=== PATIENT | male | born 1975 | race Caucasian/White ===

== ENCOUNTER 2020-06-11 12:21 | Emergency (ER) | payer BC ==
[2020-06-11 12:25] VITALS: RESP 16
[2020-06-11] MEDS ORDERED: SODIUM CHLORIDE 0.9% 1,000 ML IV ONE (12:44)
[2020-06-11] MEDS ORDERED: DEXAMETHASONE SOD PHOSPHATE 10 MG/ML 1 ML VIAL IV STA (12:44)
[2020-06-11] MEDS ORDERED: KETOROLAC 15 MG/ML 1 ML VIAL IVP STA (12:44)
--- NOTE | 2020-06-11 12:52 | ED ---
ENT HPI - General Source: patient, RN notes reviewed, old records reviewed Mode of arrival: ambulatory Limitations: no limitations <Johanne Wahl - Last Filed: 06/11/20 13:59> <Yulia Shay - Last Filed: 06/11/20 14:47> - General Chief complaint: ENT Stated complaint: trouble swallowing Time Seen by Provider: 06/11/20 12:27 - History of Present Illness Initial comments: Patient is a 45-year-old male who presents emergency department today with 4 days of sore throat and dysphasia. Patient states that he was seen at urgent care and prescribed antibiotics of azithromycin and steroids and has been on them for 4 days. Patient states that he had a negative strep test. Patient states his symptoms seem be worsening. He denies fever. (Johanne Wahl) - Related Data Home Medications Medication Instructions Recorded Confirmed Acetaminophen Tab [Tylenol Tab] 1,000 mg PO Q6HR PRN 06/11/20 06/11/20 Azithromycin [Zithromax Z-pack (6 See Taper PO DIRECTED 06/11/20 06/11/20 tabs)] Escitalopram [Lexapro] 10 mg PO DAILY 06/11/20 06/11/20 Ipratropium [place] 0.06%Nasal 2 spray EA NOSTRIL TID PRN 06/11/20 06/11/20 [Atrovent Nasal 0.06%] Levothyroxine Sodium [Synthroid] 50 mcg PO DAILY 06/11/20 06/11/20 Lidocaine Viscous 2% [Xylocaine 1 tbsp PO TID 06/11/20 06/11/20 Viscous] Olmesartan [Benicar] 20 mg PO DAILY 06/11/20 06/11/20 Rosuvastatin Calcium [Crestor] 5 mg PO DAILY 06/11/20 06/11/20 Triamterene/Hydrochlorothiazid 1 tab PO DAILY 06/11/20 06/11/20 [Triamterene-Hctz 37.5-25 mg Tb] buPROPion XL [Wellbutrin Xl] 150 mg PO DAILY 06/11/20 06/11/20 predniSONE [Deltasone] 20 mg PO BID 06/11/20 06/11/20 Allergies Allergy/AdvReac Type Severity Reaction Status Date / Time No Known Allergies Allergy Verified 06/11/20 13:21 Review of Systems ROS Other: All systems not noted in ROS Statement are negative. <Johanne Wahl - Last Filed: 06/11/20 13:59> ROS Other: All systems not noted in ROS Statement are negative. <Yulia Shay - Last Filed: 06/11/20 14:47> ROS Statement: Those systems with pertinent positive or pertinent negative responses have been documented in the HPI. Past Medical History Past Medical History: Asthma History of Any Multi-Drug Resistant Organisms: None Reported Past Surgical History: Orthopedic Surgery Additional Past Surgical History / Comment(s): left wrist surgery, nasal surgery Past Psychological History: Depression Smoking Status: Never smoker Past Alcohol Use History: Occasional Past Drug Use History: None Reported <Johanne Wahl - Last Filed: 06/11/20 13:59> General Exam Limitations: no limitations General appearance: alert, in no apparent distress Head exam: Present: atraumatic, normocephalic, normal inspection Eye exam: Present: normal appearance, PERRL, EOMI. Absent: scleral icterus, conjunctival injection, periorbital swelling ENT exam: Present: normal exam, mucous membranes moist. Absent: normal oropharynx (erythematous oropharynx, enlarged uvula. Malampati score 4. ) Neck exam: Present: tenderness ( is tenderness to palpation over anterior neck.). Absent: normal inspection, meningismus, lymphadenopathy Respiratory exam: Present: normal lung sounds bilaterally. Absent: respiratory distress, wheezes, rales, rhonchi, stridor Cardiovascular Exam: Present: regular rate, normal rhythm, normal heart sounds. Absent: systolic murmur, diastolic murmur, rubs, gallop, clicks GI/Abdominal exam: Present: soft, normal bowel sounds. Absent: distended, tenderness, guarding, rebound, rigid Extremities exam: Present: normal inspection, full ROM, normal capillary refill. Absent: tenderness, pedal edema, joint swelling, calf tenderness Back exam: Present: normal inspection Neurological exam: Present: alert, oriented X3, CN II-XII intact Psychiatric exam: Present: normal affect, normal mood Skin exam: Present: warm, dry, intact, normal color. Absent: rash <Johanne Wahl - Last Filed: 06/11/20 13:59> - General Exam Comments Initial Comments: 45-year-old male. No distress. (Johanne Wahl) Course <Yulia Shay - Last Filed: 06/11/20 14:47> Vital Signs 06/11/20 12:22 Temperature 98.4 F Pulse Rate 91 Respiratory 16 Rate Blood Pressure 148/75 O2 Sat by Pulse 98 Oximetry - Reevaluation(s) Reevaluation #1: Spoke with Dr. Hutchinson in regards to the patient's CT. He has large retropharyngeal abscess measuring 7 x 1.5 cm. States the patient has good patency of his airway 06/11/20 14:05 (Yulia Shay) Reevaluation #2: Spoke with Dr. Fleming. States the patient should be transferred to a facility with ICU and 24 hours ENT coverage. Recommends admission to [facility]. Will contact at this time for transfer 06/11/20 14:15 (Yulia Shay) Medical Decision Making - Lab Data Result diagrams: 06/11/20 13:05 06/11/20 13:05 <Johanne Wahl - Last Filed: 06/11/20 13:59> - Lab Data Result diagrams: 06/11/20 13:05 06/11/20 13:05 <Yulia Shay - Last Filed: 06/11/20 14:47> - Medical Decision Making 45-year-old male presents emergency department today with complaints of sore throat for the past 4 days difficulties swallowing. He does have a muffled voice. She does have a narrow oropharynx and male potty score 4. On posterior pharynx examination he does have evidence of enlarged uvula. Patient's strep test is negative. Heterophile test is negative. Leukocytosis is noted to be elevated at 14,000. Due to dysphagia and swelling Patient had a computed tomography scan of his neck which is currently pending. Patient's case was discussed with Dr. Shay whom will take over case at 2:00pm. Pt started on toradol, decadron and rocephin. (Johanne Wahl) The patient was signed out to me by the PA. The patient was evaluated myself. He was sent over for CT. Discuss results with the radiologist who states that the patient has a large retropharyngeal abscess measuring 7.0 x 1.5 cm. patient is informed of this and immediately speak with the ENT, Dr. Vaughan. Dr. Valero eyer recommends transfer to higher level of care - suggesting [facility]. The patient does agree to transfer to an outside facility with recommended EMS transport in order to monitor his airway. Spoke with [facility] - Dr. Marquis freitas. (Yulia Shay) - Lab Data Lab Results 06/11/20 06/11/20 06/11/20 Range/Units 13:05 13:05 13:05 WBC 14.7 H (3.8-10.6) k/uL RBC 5.00 (4.30-5.90) m/uL Hgb 15.1 (13.0-17.5) gm/dL Hct 43.1 (39.0-53.0) % MCV 86.3 (80.0-100.0) fL MCH 30.1 (25.0-35.0) pg MCHC 34.9 (31.0-37.0) g/dL RDW 12.7 (11.5-15.5) % Plt Count 350 (150-450) k/uL MPV 7.4 Neutrophils % 77 % Lymphocytes % 13 % Monocytes % 8 % Eosinophils % 1 % Basophils % 1 % Neutrophils # 11.3 H (1.3-7.7) k/uL Lymphocytes # 1.9 (1.0-4.8) k/uL Monocytes # 1.2 H (0-1.0) k/uL Eosinophils # 0.1 (0-0.7) k/uL Basophils # 0.1 (0-0.2) k/uL Sodium 137 (137-145) mmol/L Potassium 3.8 (3.5-5.1) mmol/L Chloride 98 (98-107) mmol/L Carbon Dioxide 29 (22-30) mmol/L Anion Gap 10 mmol/L BUN 18 (9-20) mg/dL Creatinine 1.15 (0.66-1.25) mg/dL Est GFR (CKD-EPI)AfAm 88 (>60 ml/min/1.73 sqM) Est GFR (CKD-EPI)NonAf 76 (>60 ml/min/1.73 sqM) Glucose 119 H (74-99) mg/dL Calcium 9.6 (8.4-10.2) mg/dL Total Bilirubin 1.0 (0.2-1.3) mg/dL AST 33 (17-59) U/L ALT 41 (4-49) U/L Alkaline Phosphatase 101 (38-126) U/L Total Protein 7.5 (6.3-8.2) g/dL Albumin 4.6 (3.5-5.0) g/dL Heterophile Antibody Negative (Negative) Group A Strep Rapid (Negative) 06/11/20 Range/Units 13:05 WBC (3.8-10.6) k/uL RBC (4.30-5.90) m/uL Hgb (13.0-17.5) gm/dL Hct (39.0-53.0) % MCV (80.0-100.0) fL MCH (25.0-35.0) pg MCHC (31.0-37.0) g/dL RDW (11.5-15.5) % Plt Count (150-450) k/uL MPV Neutrophils % % Lymphocytes % % Monocytes % % Eosinophils % % Basophils % % Neutrophils # (1.3-7.7) k/uL Lymphocytes # (1.0-4.8) k/uL Monocytes # (0-1.0) k/uL Eosinophils # (0-0.7) k/uL Basophils # (0-0.2) k/uL Sodium (137-145) mmol/L Potassium (3.5-5.1) mmol/L Chloride (98-107) mmol/L Carbon Dioxide (22-30) mmol/L Anion Gap mmol/L BUN (9-20) mg/dL Creatinine (0.66-1.25) mg/dL Est GFR (CKD-EPI)AfAm (>60 ml/min/1.73 sqM) Est GFR (CKD-EPI)NonAf (>60 ml/min/1.73 sqM) Glucose (74-99) mg/dL Calcium (8.4-10.2) mg/dL Total Bilirubin (0.2-1.3) mg/dL AST (17-59) U/L ALT (4-49) U/L Alkaline Phosphatase (38-126) U/L Total Protein (6.3-8.2) g/dL Albumin (3.5-5.0) g/dL Heterophile Antibody (Negative) Group A Strep Rapid Negative (Negative) Disposition <Johanne Wahl - Last Filed: 06/11/20 13:59> Is patient prescribed a controlled substance at d/c from ED?: No - Out of Hospital Transfer - Req. Specs Out of Hospital Transfer - Requested Specifics: Other Emergency Center ([facility]) <Yulia Shay - Last Filed: 06/11/20 14:47> Clinical Impression: Retropharyngeal abscess Disposition: OTHER INSTITUTION NOT DEFINED Condition: Stable Referrals: Nonstaff,Physician [Primary Care Provider] - 1-2 days
[2020-06-11 13:17] LABS: Basophils # (A) 0.1 k/uL (0-0.2); Basophils % (A) 1 %; Eosinophils # (A) 0.1 k/uL (0-0.7); Eosinophils % (A) 1 %; HCT 43.1 % (39.0-53.0); HGB 15.1 gm/dL (13.0-17.5); Lymphocytes # (A) 1.9 k/uL (1.0-4.8); Lymphocytes % (A) 13 %; MCH 30.1 pg (25.0-35.0); MCHC 34.9 g/dL (31.0-37.0); MCV 86.3 fL (80.0-100.0); Mean Platelet Volume 7.4; Monocytes # (A) 1.2 k/uL (0-1.0); Monocytes % (A) 8 %; Neutrophils # (A) 11.3 k/uL (1.3-7.7); Neutrophils % (A) 77 %; Platelet Count 350 k/uL (150-450); RDW 12.7 % (11.5-15.5); WBC 14.7 k/uL (3.8-10.6)
[2020-06-11 13:25] LABS: Albumin 4.6 g/dL (3.5-5.0); Calcium 9.6 mg/dL (8.4-10.2); Potassium 3.8 mmol/L (3.5-5.1); Total Protein 7.5 g/dL (6.3-8.2)
[2020-06-11] MEDS ORDERED: cefTRIAXone IN SWFI 1,000 MG/10 ML SYRINGE IVP STA (13:33)
[2020-06-11] MEDS ORDERED: PIPERACILLIN-TAZOBACTAM 3.375 GM in SODIUM CHLORIDE 0.9% 100 ML IVPB STA (14:05)
--- NOTE | 2020-06-11 14:08 | CT ---
EXAMINATION TYPE: CT soft tissue neck w con DATE OF EXAM: 06/11/2020 COMPARISON: None HISTORY: Sore throat, dysphagia CT DLP: 416.9 mGycm Automated exposure control for dose reduction was used. CONTRAST: Performed with IV Contrast, patient injected with 100 mL of Isovue 300. Images were obtained from the level of the aortic arch to the orbits with IV contrast. Superior mediastinum is intact. There is no adenopathy. There is 1.8 cm rounded low-density area righ t thyroid lobe consistent with a cyst. There is normal enhancement of the carotid arteries and jugula r veins. The visualized trachea appears normal. There is significant prevertebral fluid accumulation in the mid cervical spinal region that measures 6.7 x 1.4 cm. There is also mucosal thickening and soft tissue thickening of the retropharyngeal tiss ues. Epiglottis is normal. Tongue appears intact. The submandibular salivary glands appear normal. Parotid glands are intact. Cervical vertebra have normal spacing and alignment. Posterior elements are intact. IMPRESSION: There is rectal pharyngeal fluid collection related to abscess. There is soft tissue thickening of th e retropharyngeal tissues. No significant narrowing of the airway. Normal epiglottis. Right side thyroid cyst.
[2020-06-11 15:14] VITALS: BP 131/61; PULSE 82; TEMP 98.1
== END 2020-06-11 15:25 | disposition other institution (70) ==
LOC: EC 12:21
DX: J39.0 Retropharyngeal and parapharyngeal abscess (principal); D72.829 Elevated white blood cell count, unspecified; F32.9 Major depressive disorder, single episode, unspecified; Z79.899 Other long term (current) drug therapy
CPT/HCPCS: 36415; 80053; 85025; 86308; 87040; 87081; 87430; 70491; 99285; 96365; 96375 ×3; 96361; J2543; J1100; J0696; J1885; Q9967

== ENCOUNTER → 2020-07-20 | Outpatient (CLI) | payer BC ==
--- NOTE | 2020-07-20 15:56 | CONS ---
CONSULTATION DATE OF SERVICE: 07/20/2020 This 45-year-old gentleman has been evaluated in the sleep center for possible obstructive sleep apnea-hypopnea syndrome. HISTORY OF PRESENT ILLNESS/SLEEP-WAKE EVALUATION: Patient's usual sleep schedule is from 11:30 p.m. to 8 a.m. Sometimes he has problems with falling asleep, but usually not more than for 30 minutes. He has a TV set in the bedroom. He usually sleeps on the back position. He snores and he wakes up from sleep 3 times, with 2 episodes of nocturia. No history of hypnagogic hallucinations, sleep paralysis or cataplexy. During the day, patient may feel sleepiness. [place] Sleepiness Scale is 10. PAST MEDICAL HISTORY: Positive for hypertension, hyperlipidemia, acid reflux, depression, thyroid nodules and hypothyroidism. PAST SURGICAL HISTORY: Septoplasty, surgery for carpal tunnel syndrome on the left side, right tonsillar abscess. MEDICATIONS: Rosuvastatin once a day, levothyroxine once a day, escitalopram once a day, olmesartan once a day, triamterene once a day, bupropion once a day, montelukast once a day. SOCIAL HISTORY: Negative for smoking or using alcohol. FAMILY HISTORY: Positive for heart problems. REVIEW OF SYSTEMS: Snoring, multiple awakenings from sleep, sleepiness during the day. PHYSICAL EXAMINATION: GENERAL: A pleasant gentleman without distress. VITAL SIGNS: BP 133/66, HR 78, RR 12, height 5 feet 6-1/4 inches, weight 249.4 pounds, BMI 40.1, temperature 98.2, oxygen saturation at room air 94%. HEENT: PERRLA, EOMI. Evaluation of oropharynx showed tongue protrudes midline. Extremely low position of soft palate. Mallampati IV. NECK: Supple. No JVD. Thyroid is not palpable. Wide neck; 20-1/2 inches in circumference. LUNGS: Clear to percussion and to auscultation. Good air exchange. No wheezing or rhonchi. HEART: S1, S2 regular. No murmurs, gallops or rubs. ABDOMEN: Obese. EXTREMITIES: No clubbing or cyanosis. MOUNTER SAXOPHONES: Awake, alert, and oriented X3. Cranial nerves 2 to 7 intact. There is no fasciculation or atrophy. noted. No focal deficits observed. IMPRESSION: 1. Snoring, multiple awakenings from sleep, extremely low position of soft palate, wide neck, sleepiness, [place] Sleepiness Scale of 10; obstructive sleep apnea- hypopnea syndrome. 2. Obesity; BMI of 40.1. 3. Hypertension. 4. Status post right tonsillar abscess. 5. Hyperlipidemia. 6. Acid reflux. 7. History of depression. 8. Thyroid nodules and hypothyroidism. 9. Status post septoplasty. 10.Status post surgery for carpal tunnel syndrome on the left side. PLAN: 1. Polysomnography for evaluation of patient's breathing during sleep. 2. CPAP/BiPAP titration if sleep study confirms obstructive sleep apnea-hypopnea syndrome. 3. Preferable position during sleep on the side. 4. No driving if patient feels any sleepiness. 5. I will see patient for follow up visit to explain results of testing and following plan. Thank you very much for referring this patient for consultation. Sincerely, Jerry Byrne MD, PhD, FAASM Diplomat of [place] [employer] Manager of [facility] [place] MMODL / IJN: [id number] /
== END | disposition home or self-care (01) ==
LOC: SLEEP 13:23
PROVIDERS: ATTEND Internal Medicine
DX: G47.33 Obstructive sleep apnea (adult) (pediatric) (principal); I10 Essential (primary) hypertension; E66.9 Obesity, unspecified; Z68.41 Body mass index [BMI] 40.0-44.9, adult; E78.5 Hyperlipidemia, unspecified; K21.9 Gastro-esophageal reflux disease without esophagitis; E04.1 Nontoxic single thyroid nodule; E03.9 Hypothyroidism, unspecified; Z98.890 Other specified postprocedural states; Z86.59 Personal history of other mental and behavioral disorders; Z79.899 Other long term (current) drug therapy; Z79.890 Hormone replacement therapy; Z79.891 Long term (current) use of opiate analgesic
CPT/HCPCS: 99211

== ENCOUNTER → 2020-12-01 | Outpatient (CLI) | payer BC, OTHER ==
--- NOTE | 2020-12-02 08:21 | SFUN ---
SLEEP CENTER FOLLOW UP NOTE DATE OF SERVICE: 12/01/2020 INTERVAL HISTORY: This is a 45-year-old gentleman who has been followed in Sleep Center for treatment of obstructive sleep apnea-hypopnea syndrome. In July of 2020, patient had home sleep apnea test which showed the patient has moderate obstructive sleep apnea-hypopnea syndrome and I discussed results of sleep study with patient in detail. After that, the patient was ordered automatic CPAP unit and today is the first time he came back for checking his condition on treatment with CPAP. The patient is able to use CPAP equipment every night for the whole night without significant problems related to mask fitting, pressure or humidification. He feels better with the CPAP and feeling better during the day. I checked the information from the CPAP unit. Usage is 70% of the time for more than 4 hours. Average usage 4 hours and 43 minutes. Range of the pressure is 5 to 20 with average pressure 9.3 cm of water and maximum pressure of 10.3 cm of water. Apnea- hypopnea index reduced to normal range 2.9. Leak is 10.1 L/minute and is 95%, which is acceptable. MEDICATIONS: Rosuvastatin once a day, levothyroxine once a day, escitalopram once a day, olmesartan once a day, triamterene once a day, bupropion once a day, montelukast once a day. PHYSICAL EXAMINATION: GENERAL: Patient in no distress. VITAL SIGNS: BP 127/55, HR 80, RR 15, weight 258, temp 98.6, oxygen saturation at room air 96%. HEENT: PERRLA, EOMI, evaluation of oropharynx showed tongue protrudes midline. Oropharynx low position of soft palate. Mallampati IV. NECK: Supple, no JVD. Thyroid is not palpable. LUNGS: Clear to percussion and to auscultation. Good air exchange. No wheezing or rhonchi. HEART: S1, S2 regular. No murmurs, gallops, or rubs. ABDOMEN: Obese, soft and nontender. Bowel sounds are present. No organomegaly appreciated. EXTREMITIES: No clubbing or cyanosis. CLINICIAN ONCOLOGY: Awake, alert, and oriented X3. Cranial nerves 2 to 7 intact. There is no fasciculation or atrophy. noted. No focal deficits observed. IMPRESSION: 1. Moderate obstructive sleep apnea-hypopnea syndrome by results of home sleep apnea test. Apnea-hypopnea index 22.1 with oxygen desaturation to 75%, on full control with AutoPAP. The patient demonstrated good compliance with treatment, benefitting from treatment. Normal respiration on CPAP. 2. Obesity. 3. Hypertension. 4. Status post right tonsillar abscess. 5. Hyperlipidemia. 6. Acid reflux. 7. History of depression. 8. Thyroid nodules. 9. Septoplasty. 10.Status post surgery for carpal tunnel syndrome on the left side. 11.Thyroid nodules and hypothyroidism. PLAN: 1. Patient will continue to use PAP equipment every night for the whole night. 2. Sleep hygiene with regular time in bed for at least 7-1/2 to 8 hours. 3. Precautions related to driving. No driving if feeling sleepiness. 4. I will maintain all necessary prescription for PAP supplies including mask, tube, filters. 5. Watching weight. 6. Follow-up visit in 6 months or earlier if patient has any problems. Thank you very much for allowing me to participate in the management of your patient. Sincerely, Jerry Byrne MD, PhD, FAASM Diplomat of [place] [employer] [place] [employer] International Account Executive of [facility] [place] MMODL / IJN: [id number] /
== END ==
LOC: SLEEP 15:15
PROVIDERS: ATTEND Internal Medicine
DX: G47.33 Obstructive sleep apnea (adult) (pediatric) (principal); Z99.81 Dependence on supplemental oxygen; E66.9 Obesity, unspecified; I10 Essential (primary) hypertension; E78.5 Hyperlipidemia, unspecified; K21.9 Gastro-esophageal reflux disease without esophagitis; E03.9 Hypothyroidism, unspecified; E04.1 Nontoxic single thyroid nodule; Z98.890 Other specified postprocedural states; F32.9 Major depressive disorder, single episode, unspecified

== ENCOUNTER 2021-09-10 14:22 | Emergency (ER) | payer OTHER ==
[2021-09-10 14:43] VITALS: BP 137/71; PULSE 89; RESP 16; TEMP 98.4
[2021-09-10 15:00] LABS: Appearance,Urine Clear (Clear); Bilirubin,Urine Negative (Negative); Blood,Urine Negative (Negative); Color,Urine Yellow; Glucose,Urine (UA) Negative (Negative); Ketones,Urine Negative (Negative); Leukocyte Esterase,Urine Negative (Negative); Nitrite,Urine Negative (Negative); PH, Urine 5.5 (5.0-8.0); Protein,Urine Negative (Negative); Specific Gravity,Urine 1.016 (1.001-1.035); Urobilinogen,Urine <2.0 mg/dL (<2.0)
[2021-09-10] MEDS ORDERED: KETOROLAC 15 MG/ML 1 ML VIAL IVP STA (16:10)
--- NOTE | 2021-09-10 16:10 | ED ---
General Adult HPI - General Chief complaint: Abdominal Pain Stated complaint: Abd pain Time Seen by Provider: 09/10/21 14:45 Source: patient, RN notes reviewed, old records reviewed Mode of arrival: ambulatory Limitations: no limitations - History of Present Illness Initial comments: This is a 46-year-old male who presents emergency Department stating last night he started having right sided abdominal pain. 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 Patient denies any fever chills or cough per patient denies any diarrhea. Patient denies any nausea or vomiting. Patient states she's been able to eat and drink normally. Patient states the pain does seem to come and go but he can't seem to make it reoccur. - Related Data Home Medications Medication Instructions Recorded Confirmed Olmesartan [Benicar] 20 mg PO DAILY@1200 06/11/20 09/10/21 Rosuvastatin Calcium [Crestor] 5 mg PO HS 06/11/20 09/10/21 Triamterene/Hydrochlorothiazid 1 tab PO DAILY@1200 06/11/20 09/10/21 [Triamterene-Hctz 37.5-25 mg Tb] Levothyroxine Sodium [Synthroid] 100 mcg PO DAILY 09/10/21 09/10/21 Allergies Allergy/AdvReac Type Severity Reaction Status Date / Time No Known Allergies Allergy Verified 09/10/21 16:41 Review of Systems ROS Statement: Those systems with pertinent positive or pertinent negative responses have been documented in the HPI. ROS Other: All systems not noted in ROS Statement are negative. Past Medical History Past Medical History: Asthma History of Any Multi-Drug Resistant Organisms: None Reported Past Surgical History: Orthopedic Surgery Additional Past Surgical History / Comment(s): left wrist surgery, nasal surgery Past Psychological History: Depression Smoking Status: Never smoker Past Alcohol Use History: Occasional Past Drug Use History: None Reported General Exam - General Exam Comments Initial Comments: GENERAL: Patient is well-developed and well-nourished. Patient is nontoxic and well- hydrated and is in no acute distress. ENT: Neck is soft and supple. No significant lymphadenopathy is noted. Oropharynx is clear. Moist mucous membranes. Neck has full range of motion without eliciting any pain. EYES: The sclera were anicteric and conjunctiva were pink and moist. Extraocular movements were intact and pupils were equal round and reactive to light. Eyelids were unremarkable. PULMONARY: Unlabored respirations. Good breath sounds bilaterally. No audible rales rhonchi or wheezing was noted. CARDIOVASCULAR: There is a regular rate and rhythm without any murmurs gallops or rubs. ABDOMEN: Patient has minimal tenderness in the right flank. No right lower quadrant or right upper quadrant tenderness. Patient states when he twists can feel a little worse than normal SKIN: Skin is clear with no lesions or rashes and otherwise unremarkable. NEUROLOGIC: Patient is alert and oriented x3. Cranial nerves II through XII are grossly intact. Motor and sensory are also intact. Normal speech, volume and content. Symmetrical smile. MUSCULOSKELETAL: Normal extremities with adequate strength and full range of motion. LYMPHATICS: No significant lymphadenopathy is noted PSYCHIATRIC: Normal psychiatric evaluation. Limitations: no limitations Course Vital Signs 09/10/21 14:41 Temperature 98.4 F Pulse Rate 89 Respiratory 16 Rate Blood Pressure 137/71 O2 Sat by Pulse 98 Oximetry Medical Decision Making - Medical Decision Making KUB shows no acute abnormality. - Lab Data Result diagrams: 09/10/21 16:32 09/10/21 16:32 Lab Results 09/10/21 09/10/21 09/10/21 Range/Units 14:52 16:32 16:32 WBC 7.3 (3.8-10.6) k/uL RBC 5.31 (4.30-5.90) m/uL Hgb 15.6 (13.0-17.5) gm/dL Hct 46.1 (39.0-53.0) % MCV 86.8 (80.0-100.0) fL MCH 29.4 (25.0-35.0) pg MCHC 33.9 (31.0-37.0) g/dL RDW 12.8 (11.5-15.5) % Plt Count 300 (150-450) k/uL MPV 7.9 Neutrophils % 70 % Lymphocytes % 19 % Monocytes % 6 % Eosinophils % 2 % Basophils % 1 % Neutrophils # 5.1 (1.3-7.7) k/uL Lymphocytes # 1.4 (1.0-4.8) k/uL Monocytes # 0.5 (0-1.0) k/uL Eosinophils # 0.1 (0-0.7) k/uL Basophils # 0.1 (0-0.2) k/uL Sodium 138 (137-145) mmol/L Potassium 4.1 (3.5-5.1) mmol/L Chloride 103 (98-107) mmol/L Carbon Dioxide 25 (22-30) mmol/L Anion Gap 10 mmol/L BUN 13 (9-20) mg/dL Creatinine 0.99 (0.66-1.25) mg/dL Est GFR (CKD-EPI)AfAm >90 (>60 ml/min/1.73 sqM) Est GFR (CKD-EPI)NonAf 90 (>60 ml/min/1.73 sqM) Glucose 100 H (74-99) mg/dL Calcium 9.6 (8.4-10.2) mg/dL Total Bilirubin 0.7 (0.2-1.3) mg/dL AST 47 (17-59) U/L ALT 52 H (4-49) U/L Alkaline Phosphatase 82 (38-126) U/L Total Protein 7.6 (6.3-8.2) g/dL Albumin 4.6 (3.5-5.0) g/dL Amylase 56 (30-110) U/L Lipase 60 (23-300) U/L Urine Color Yellow Urine Appearance Clear (Clear) Urine pH 5.5 (5.0-8.0) Ur Specific [place] 1.016 (1.001-1.035) Urine Protein Negative (Negative) Urine Glucose (UA) Negative (Negative) Urine Ketones Negative (Negative) Urine Blood Negative (Negative) Urine Nitrite Negative (Negative) Urine Bilirubin Negative (Negative) Urine Urobilinogen <2.0 (<2.0) mg/dL Ur Leukocyte Esterase Negative (Negative) Disposition Clinical Impression: Abdominal muscle strain Disposition: HOME SELF-CARE Condition: Good Instructions (If sedation given, give patient instructions): Muscle Strain (ED) Is patient prescribed a controlled substance at d/c from ED?: No Referrals: None,Stated [Primary Care Provider] - 1-2 days Time of Disposition: 17:03
--- NOTE | 2021-09-10 16:38 | XR ---
EXAMINATION TYPE: XR KUB DATE OF EXAM: 09/10/2021 4:33 PM INDICATION: Patient age:Male; 46 years old; Reason for study: abdominal pain; COMPARISON: None. TECHNIQUE: One radiographic view of the abdomen was obtained. FINDINGS: The bowel gas pattern is nonspecific without dilated loops of small or large bowel. There i s no evidence for organomegaly or pneumoperitoneum. The osseous structures are intact. No abnormal calcifications are present. Fecal material and gas are demonstrated throughout the colon and rectum. IMPRESSION: Nonspecific bowel gas pattern without radiographic evidence for acute process.
[2021-09-10 16:45] LABS: Basophils # (A) 0.1 k/uL (0-0.2); Basophils % (A) 1 %; Eosinophils # (A) 0.1 k/uL (0-0.7); Eosinophils % (A) 2 %; HCT 46.1 % (39.0-53.0); HGB 15.6 gm/dL (13.0-17.5); Lymphocytes # (A) 1.4 k/uL (1.0-4.8); Lymphocytes % (A) 19 %; MCH 29.4 pg (25.0-35.0); MCHC 33.9 g/dL (31.0-37.0); MCV 86.8 fL (80.0-100.0); Mean Platelet Volume 7.9; Monocytes # (A) 0.5 k/uL (0-1.0); Monocytes % (A) 6 %; Neutrophils # (A) 5.1 k/uL (1.3-7.7); Neutrophils % (A) 70 %; Platelet Count 300 k/uL (150-450); RBC 5.31 m/uL (4.30-5.90); RDW 12.8 % (11.5-15.5); WBC 7.3 k/uL (3.8-10.6)
[2021-09-10 16:52] LABS: ALT 52 U/L (4-49); AST 47 U/L (17-59); African American GFR (CKD) >90 (>60 ml/min/1.73 sqM); Albumin 4.6 g/dL (3.5-5.0); Alkaline Phosphatase 82 U/L (38-126); Amylase 56 U/L (30-110); Anion Gap 10 mmol/L; Blood Urea Nitrogen 13 mg/dL (9-20); Calcium 9.6 mg/dL (8.4-10.2); Carbon Dioxide 25 mmol/L (22-30); Chloride 103 mmol/L (98-107); Glucose 100 mg/dL (74-99); Lipase 60 U/L (23-300); Non-African American GFR(CKD) 90 (>60 ml/min/1.73 sqM); Potassium 4.1 mmol/L (3.5-5.1); Sodium 138 mmol/L (137-145); Total Bilirubin 0.7 mg/dL (0.2-1.3); Total Protein 7.6 g/dL (6.3-8.2)
== END 2021-09-10 17:14 | disposition home or self-care (01) ==
LOC: EC 14:22
DX: S39.011A Strain of muscle, fascia and tendon of abdomen, initial encounter (principal); J45.909 Unspecified asthma, uncomplicated
CPT/HCPCS: 36415; 80053; 82150; 83690; 85025; 81003; 74018; 99284; 96374; J1885

== ENCOUNTER → 2022-03-16 | Outpatient (CLI) | payer OTHER ==
[2022-03-16 11:50] LABS: Thyroid Peroxidase Antibodies <9.0 U/mL (0.0-33.0)
[2022-03-16 12:27] LABS: T4, Free (Free Thyroxine) 1.27 ng/dL (0.800-1.800)
== END | disposition home or self-care (01) ==
LOC: LABWHC1 07:28
PROVIDERS: ATTEND Otolaryngology
DX: J30.89 Other allergic rhinitis (principal); R53.83 Other fatigue; K14.0 Glossitis
CPT/HCPCS: 36415; 84439; 84443; 85652; 86038; 86376

== ENCOUNTER → 2022-05-04 | Outpatient (CLI) | payer OTHER ==
--- NOTE | 2022-05-04 12:15 | US ---
EXAMINATION TYPE: US thyroid st tissue head/neck DATE OF EXAM: 05/04/2022 COMPARISON: CT 06/11/2020 CLINICAL HISTORY: E04.1 SINGLE THYROID NODULE. GLAND SIZE: Right Lobe: 4.6 x 1.9 x 2.1 cm Overall Parenchyma: heterogenous Left Lobe: 4.0 x 1.4 x 1.2 cm Overall Parenchyma: heterogeneous Isthmus Thickness: 0.7 cm NODULES RIGHT: # of nodules measured on right: 1 1. 2.6 X 1.6 x 2.3 cm, lower mid, solid or almost completely solid, isoechoic nodule, which is wide r than tall, with smooth margins, without echogenic foci. Prior size: no prior here , patient states prior biopsy at another facility. LEFT: # of nodules measured on left: 0 ISTHMUS: # of nodules measured in the isthmus: 0 Bilateral neck scanned, no evidence of lymphadenopathy. Technically difficult due to patient body habitus and gland extending past clavicle. IMPRESSION:TR3 mildly suspicious. Fine needle aspiration of greater than or equal to 2.5 cm.
== END | disposition home or self-care (01) ==
LOC: RADUSWWP 10:16
PROVIDERS: ATTEND Family Medicine
DX: E04.1 Nontoxic single thyroid nodule (principal)
CPT/HCPCS: 76536

== ENCOUNTER 2022-09-25 14:14 | Observation (INO) | payer OTHER ==
--- NOTE | 2022-09-25 15:09 | ED ---
Abdominal Pain HPI - General Source: patient, RN notes reviewed Mode of arrival: ambulatory Limitations: no limitations - History of Present Illness MD Complaint: abdominal pain Location: RUQ Quality: sharp <Lynda Jones - Last Filed: 09/25/22 15:07> <Enrico Brown - Last Filed: 09/25/22 18:44> - General Chief Complaint: Abdominal Pain Stated Complaint: Abd Pain Time Seen by Provider: 09/25/22 14:45 - History of Present Illness Initial Comments: This is a 47-year-old male who presents to the emergency department for right upper quadrant pain. Patient states that he had an abdominal ultrasound approximately one month ago showing biliary sludge. He is scheduled to see general surgery on 10/03. However, today he developed sharp right upper quadrant pain, approximately 3-4 hours prior to arrival. States that he's never experienced pain like this before. Denies any nausea, vomiting, diarrhea, or constipation. (Lynda Jones) 47 male presents today for evaluation of right upper quadrant abdominal pain severe starting while at work associated with eating or drinking he was nauseous without vomiting no fevers he is had issues with what he believes maybe his gallbladder the past feels a similar event but much worse. No prior surgical history or issues. (Enrico Brown) - Related Data Home Medications Medication Instructions Recorded Confirmed Olmesartan [Benicar] 20 mg PO DAILY 06/11/20 09/25/22 Rosuvastatin Calcium [Crestor] 5 mg PO HS 06/11/20 09/25/22 Triamterene/Hydrochlorothiazid 1 tab PO DAILY 06/11/20 09/25/22 [Triamterene-Hctz 37.5-25 mg Tb] Levothyroxine Sodium [Synthroid] 100 mcg PO DAILY 09/10/21 09/25/22 Cholecalciferol [Vitamin D3 (25 25 mcg PO DAILY 09/25/22 09/25/22 Mcg = 1000 Iu)] Famotidine [Pepcid] 20 mg PO DAILY 09/25/22 09/25/22 Allergies Allergy/AdvReac Type Severity Reaction Status Date / Time No Known Allergies Allergy Verified 09/25/22 18:17 Review of Systems ROS Other: All systems not noted in ROS Statement are negative. <Lynda Jones - Last Filed: 09/25/22 15:07> ROS Other: All systems not noted in ROS Statement are negative. <Enrico Brown - Last Filed: 09/25/22 18:44> ROS Statement: Those systems with pertinent positive or pertinent negative responses have been documented in the HPI. Past Medical History Past Medical History: Asthma History of Any Multi-Drug Resistant Organisms: None Reported Past Surgical History: Orthopedic Surgery Additional Past Surgical History / Comment(s): left wrist surgery, nasal surgery Past Psychological History: Depression Smoking Status: Never smoker Past Alcohol Use History: Occasional Past Drug Use History: None Reported <Lynda Jones - Last Filed: 09/25/22 15:07> General Exam Limitations: no limitations <Lynda Jones - Last Filed: 09/25/22 15:07> General appearance: alert, in no apparent distress Head exam: Present: atraumatic, normocephalic, normal inspection Eye exam: Present: normal appearance, PERRL, EOMI. Absent: scleral icterus, conjunctival injection, periorbital swelling ENT exam: Present: normal exam, mucous membranes moist Neck exam: Present: normal inspection. Absent: tenderness, meningismus, lymphadenopathy Respiratory exam: Present: normal lung sounds bilaterally. Absent: respiratory distress, wheezes, rales, rhonchi, stridor Cardiovascular Exam: Present: regular rate, normal rhythm, normal heart sounds. Absent: systolic murmur, diastolic murmur, rubs, gallop, clicks GI/Abdominal exam: Present: soft, distended, tenderness, guarding (RUQ), normal bowel sounds. Absent: rebound, rigid Extremities exam: Present: normal inspection, full ROM, normal capillary refill. Absent: tenderness, pedal edema, joint swelling, calf tenderness Back exam: Present: normal inspection Neurological exam: Present: alert, oriented X3, CN II-XII intact Psychiatric exam: Present: normal affect, normal mood Skin exam: Present: warm, dry, intact, normal color. Absent: rash <Enrico Brown - Last Filed: 09/25/22 18:44> - General Exam Comments Initial Comments: Visual Physical Exam Vital signs reviewed General: Well-appearing, nontoxic, no acute distress. Head: Normocephalic, atraumatic Eyes: PERRLA, EOMI ENT: Airway patent Chest: Nonlabored breathing Skin: No visual rash, normal skin tone Neuro: Alert and oriented 3 Musculoskeletal: No gross abnormalities (Lynda Jones) Course <Enrico Brown - Last Filed: 09/25/22 18:44> Vital Signs 09/25/22 09/25/22 14:57 18:07 Temperature 98.2 F Pulse Rate 76 79 Respiratory 18 18 Rate Blood Pressure 155/80 146/72 O2 Sat by Pulse 98 97 Oximetry - Reevaluation(s) Reevaluation #1: 09/25/22 18:41 Medical records reviewed (Enrico Brown) Reevaluation #2: 09/25/22 18:41 Patient informed of results and questions answered (Enrico Brown) Reevaluation #3: 09/25/22 18:41 Patient symptoms are improved here in the ER (Enrico Brown) Reevaluation #4: 09/25/22 18:42 Was pt. sent in by a medical professional or institution? @ -no Did you speak to anyone other than the patient for history? @ -no Did you review nursing and triage notes? @ -agree Were old charts reviewed? @ -no Differential Diagnosis? @ -adb pain men EKG interpreted by me (3pts min.)? @ -no X-rays interpreted by me (1pt min.)? @ -no CT interpreted by me (1pt min.)? @ -no U/S interpreted by me (1pt. min.)? @ -no What testing was considered but not performed? (CT, X-rays, U/S, labs)? Why? @ no What meds were considered but not given? Why? @ -no Did you discuss the management of the patient with other professionals? @ -gen surgeon acquisitions assistant Did you reconcile home meds? @ -yes Was smoking cessation discussed for >3mins.? @ -no Was critical care preformed (if so, how long)? @ -no Were there social determinants of health that impacted care today? How? (Homelessness, low income, unemployed, alcoholism, drug addiction, transportation, low edu. Level, literacy, decrease access to med. care, f[facility], rehab)? @ -no Was there de-escalation of care discussed even if they declined? (Discuss DNR or withdrawal of care, Hospice)? @ -no What co-morbidities impacted this encounter? (DM, HTN, Smoking, COPD, CAD, Cancer, CVA, Hep., AIDS, mental health diagnosis, sleep apnea, morbid obesity)? @ -no Was patient admitted / discharged? @ -admit Undiagnosed new problem with uncertain prognosis? @ -no Drug Therapy requiring intensive monitoring for toxicity (Heparin, Nitro, Insulin, Cardizem)? @ -no Were any procedures done? @ -no Diagnosis/symptom? @ -Cholecystitis Acute, or Chronic, or Acute on Chronic? @ -acute Uncomplicated (without systemic symptoms) or Complicated (systemic symptoms)? @ -uncomplicated Side effects of treatment? @ -no Exacerbation, Progression, or Severe Exacerbation] @ -no Poses a threat to life or bodily function? @ -no (Enrico Brown) Medical Decision Making - Lab Data Result diagrams: 09/25/22 16:29 09/25/22 16:29 - Radiology Data Radiology results: report reviewed (Ultrasound gallbladder is positive for cholecystitis), image reviewed <Enrico Brown - Last Filed: 09/25/22 18:44> - Medical Decision Making 47 male to the emergency department for evaluation patient does have acute cholecystitis patient nothing by mouth status pain control and symptom management, antibiotics (Enrico Brown) - Lab Data Lab Results 09/25/22 09/25/22 09/25/22 Range/Units 16:29 16:29 16:29 WBC 9.9 (3.8-10.6) k/uL RBC 5.03 (4.30-5.90) m/uL Hgb 15.1 (13.0-17.5) gm/dL Hct 42.3 (39.0-53.0) % MCV 84.0 (80.0-100.0) fL MCH 30.1 (25.0-35.0) pg MCHC 35.8 (31.0-37.0) g/dL RDW 12.4 (11.5-15.5) % Plt Count 295 (150-450) k/uL MPV 8.1 Neutrophils % 73 % Lymphocytes % 19 % Monocytes % 4 % Eosinophils % 1 % Basophils % 1 % Neutrophils # 7.2 (1.3-7.7) k/uL Lymphocytes # 1.9 (1.0-4.8) k/uL Monocytes # 0.4 (0-1.0) k/uL Eosinophils # 0.1 (0-0.7) k/uL Basophils # 0.1 (0-0.2) k/uL Hyperchromasia Slight Sodium 135 L (137-145) mmol/L Potassium 4.5 (3.5-5.1) mmol/L Chloride 99 (98-107) mmol/L Carbon Dioxide 22 (22-30) mmol/L Anion Gap 14 mmol/L BUN 14 (9-20) mg/dL Creatinine 1.02 (0.66-1.25) mg/dL Est GFR (CKD-EPI)AfAm >90 (>60 ml/min/1.73 sqM) Est GFR (CKD-EPI)NonAf 86 (>60 ml/min/1.73 sqM) Glucose 106 H (74-99) mg/dL Plasma Lactic Acid Mukesh 1.1 (0.7-2.0) mmol/L Calcium 9.7 (8.4-10.2) mg/dL Total Bilirubin 0.8 (0.2-1.3) mg/dL AST 60 H (17-59) U/L ALT 56 H (4-49) U/L Alkaline Phosphatase 69 (38-126) U/L Total Protein 7.4 (6.3-8.2) g/dL Albumin 4.6 (3.5-5.0) g/dL Amylase 49 (30-110) U/L Lipase 61 (23-300) U/L Disposition <Lynda Jones - Last Filed: 09/25/22 15:07> Is patient prescribed a controlled substance at d/c from ED?: No Time of Disposition: 18:45 <Enrico Brown - Last Filed: 09/25/22 18:44> Clinical Impression: Abdominal pain, Acute cholecystitis Disposition: ADMITTED IP TO THIS HOSP Condition: Good Referrals: Gerald Tejada DO [Primary Care Provider] - 1-2 days
--- NOTE | 2022-09-25 15:46 | US ---
EXAMINATION TYPE: US gallbladder DATE OF EXAM: 09/25/2022 COMPARISON: US 08/27/2022 CLINICAL HISTORY: RUQ pain. Pt states RUQ pain TECHNIQUE: Multiple sonographic images of the right upper quadrant are obtained. FINDINGS: EXAM MEASUREMENTS: Liver Length: 16.7 cm Gallbladder Wall: 0.4 cm CBD: 0.3 cm Right Kidney: 11.5 x 5.0 x 5.3 cm ADVERTISING ASSISTANT NOTES: Pancreas: Obscured by bowel gas Liver: Cyst left medial lobe= 1.5 x 1.0 x 1.2 cm Gallbladder: Somewhat contracted, pt not NPO, adenomyomatosis GB wall, and GB wall is thickened as v isualized on prior Evidence for sonographic De Paz's sign: Yes CBD: wnl Right Kidney: wnl The pancreas is obscured by overlying bowel gas. There is a simple appearing cyst within the left med ial lobe measuring up to 1.5 cm. The gallbladder somewhat contracted with adenomyomatosis demonstrate d. No shadowing calculi. No pericholecystic fluid. There is some mild wall thickening redemonstrated. Per elevator repairer helper, positive sonographic De Paz's sign. Common bile duct within normal limits. The righ t kidney is within normal limits without evidence for hydronephrosis or nephrolithiasis or solid mass . IMPRESSION: Mildly contracted gallbladder without evidence of cholelithiasis. There is adenomyomatosis with wall thickening identified. Per elevator repairer helper, positive sonographic De Paz's sign. Findings are equivocal fo r acute cholecystitis. Consider further evaluation nuclear medicine HIDA scan.
[2022-09-25 17:03] LABS: Basophils # (A) 0.1 k/uL (0-0.2); Basophils % (A) 1 %; Eosinophils # (A) 0.1 k/uL (0-0.7); Eosinophils % (A) 1 %; HCT 42.3 % (39.0-53.0); HGB 15.1 gm/dL (13.0-17.5); Hyperchromasia Slight; Lymphocytes # (A) 1.9 k/uL (1.0-4.8); Lymphocytes % (A) 19 %; MCH 30.1 pg (25.0-35.0); MCHC 35.8 g/dL (31.0-37.0); Mean Platelet Volume 8.1; Monocytes # (A) 0.4 k/uL (0-1.0); Monocytes % (A) 4 %; Neutrophils # (A) 7.2 k/uL (1.3-7.7); Neutrophils % (A) 73 %; Platelet Count 295 k/uL (150-450); RBC 5.03 m/uL (4.30-5.90); RDW 12.4 % (11.5-15.5); WBC 9.9 k/uL (3.8-10.6)
[2022-09-25 17:21] LABS: ALT 56 U/L (4-49); AST 60 U/L (17-59); African American GFR (CKD) >90 (>60 ml/min/1.73 sqM); Albumin 4.6 g/dL (3.5-5.0); Alkaline Phosphatase 69 U/L (38-126); Amylase 49 U/L (30-110); Anion Gap 14 mmol/L; Blood Urea Nitrogen 14 mg/dL (9-20); Calcium 9.7 mg/dL (8.4-10.2); Carbon Dioxide 22 mmol/L (22-30); Chloride 99 mmol/L (98-107); Glucose 106 mg/dL (74-99); Lipase 61 U/L (23-300); Non-African American GFR(CKD) 86 (>60 ml/min/1.73 sqM); Sodium 135 mmol/L (137-145); Total Bilirubin 0.8 mg/dL (0.2-1.3); Total Protein 7.4 g/dL (6.3-8.2)
[2022-09-25 17:42] LABS: Potassium 4.5 mmol/L (3.5-5.1)
[2022-09-25] MEDS ORDERED: KETOROLAC 15 MG/ML 1 ML VIAL IVP STA (18:37)
[2022-09-25] MEDS ORDERED: NALOXONE 0.4 MG/ML 1 ML VIAL IV PRN (18:37)
[2022-09-25] MEDS ORDERED: MORPHINE SULFATE 4 MG/ML SYRINGE IVP STA (18:37)
[2022-09-25] MEDS ORDERED: PANTOPRAZOLE 40 MG/10 ML VIAL IVP STA (18:37)
[2022-09-25] MEDS ORDERED: AMPICILLIN-SULBACTAM 3 GM in SODIUM CHLORIDE 0.9% 100 ML IVPB STA (18:37)
[2022-09-25] MEDS: SODIUM CHLORIDE 0.9% 1,000 ML IV SCH (19:32)
[2022-09-25] MEDS: MORPHINE SULFATE 4 MG/ML SYRINGE IVP PRN (23:45)
[2022-09-25] MEDS: AMPICILLIN-SULBACTAM 3 GM in SODIUM CHLORIDE 0.9% 100 ML IVPB SCH (23:52)
[2022-09-26] MEDS: SODIUM CHLORIDE 0.9% 1,000 ML IV SCH ×3 (04:13→19:24)
[2022-09-26] MEDS: MORPHINE SULFATE 4 MG/ML SYRINGE IVP PRN (04:57)
[2022-09-26] MEDS: PANTOPRAZOLE 40 MG/10 ML VIAL IVP SCH (07:58)
[2022-09-26] MEDS: AMPICILLIN-SULBACTAM 3 GM in SODIUM CHLORIDE 0.9% 100 ML IVPB SCH ×3 (07:59→23:21)
[2022-09-26] MEDS: ACETAMINOPHEN TAB 325 MG TAB PO PRN ×2 (09:18→21:39)
[2022-09-26 09:40] LABS: ALT 46 U/L (4-49); AST 41 U/L (17-59); African American GFR (CKD) 88 (>60 ml/min/1.73 sqM); Albumin 3.7 g/dL (3.5-5.0); Albumin/Globulin Ratio 1.5; Alkaline Phosphatase 67 U/L (38-126); Anion Gap 9 mmol/L; Blood Urea Nitrogen 14 mg/dL (9-20); Calcium 8.8 mg/dL (8.4-10.2); Carbon Dioxide 27 mmol/L (22-30); Chloride 104 mmol/L (98-107); Globulin 2.4 g/dL; Glucose 92 mg/dL (74-99); Non-African American GFR(CKD) 76 (>60 ml/min/1.73 sqM); Potassium 3.8 mmol/L (3.5-5.1); Sodium 140 mmol/L (137-145); Total Bilirubin 0.8 mg/dL (0.2-1.3); Total Protein 6.1 g/dL (6.3-8.2)
--- NOTE | 2022-09-26 10:47 | P.GSHP ---
History of Present Illness H&P Date: 09/26/22 CHIEF COMPLAINT: Abdominal pain HISTORY OF PRESENT ILLNESS: This is a 47-year-old male who presents to hospital with complaints of right upper quadrant abdominal pain that started yesterday. He reports the pain has been radiating up into the shoulder and into the lower back. He has been dealing with issues with his gallbladder for the past month. He had an ultrasound last month he reports showed gallbladder sludge. He is post a follow-up with a surgeon outpatient however he had increased pain yesterday and was rating it 7 out of 10. It is the worse pain that he has had from his gallbladder. He denies any nausea or vomiting. Denies any fever chills or sweats. Denies any prior abdominal surgeries. Denies any cardiac history. Does have family history of cholecystitis. PAST MEDICAL HISTORY: See below PAST SURGICAL HISTORY: See below MEDICATIONS: See below ALLERGIES: See below SOCIAL HISTORY: No illicit drug use. REVIEW OF SYSTEMS: CONSTITUTIONAL: Denies fever or chills. HEENT: Denies blurred vision, vision changes, or eye pain. Denies hemoptysis CARDIOVASCULAR: Denies chest pain or pressure. RESPIRATORY: No shortness of breath. GASTROINTESTINAL: See HPI for pertinent findings HEMATOLOGIC: Denies bleeding disorders. GENITOURINARY: Denies any blood in urine or increased urinary frequency. SKIN: Denies pruitis. Denies rash. PHYSICAL EXAM: VITAL SIGNS: Reviewed GENERAL: Well-developed in no acute distress. HEENT: No sclera icterus. Extraocular movements grossly intact. Moist buccal mucosa. Head is atraumatic, normocephalic. No nasal drainage. ABDOMEN: Soft. Nondistended. Currently nontender. NEUROLOGIC: Alert and oriented. Cranial nerves II through XII grossly intact. LABORATORY DATA: WBC is 9.9 hgb 15.1 plt 295 Sodium 140 potassium 3.8 creatinine 1.13 total bili 0.8 AST down from 60-41 ALT 56 down to 46 IMAGING: Gallbladder ultrasound mildly contracted gallbladder without evidence of cholelithiasis. There is adenomyomatosis with wall thickening identified. Positive De Paz sign. Findings are equivocal for acute cholecystitis. ASSESSMENT: 1. Acute cholecystitis PLAN: -Patient scheduled for laparoscopic cholecystectomy today with Dr. Choi -Keep patient nothing by mouth -Continue IV antibiotics -Continue IV fluids -Continue pain medication as needed Physician Digital Forensic Examiner note has been reviewed by physician. Signing provider agrees with the documented findings, assessment, and plan of care. Past Medical History Past Medical History: Asthma, Hyperlipidemia, Hypertension, Sleep Apnea/CPAP/BIPAP, Thyroid Disorder History of Any Multi-Drug Resistant Organisms: None Reported Past Surgical History: Orthopedic Surgery Additional Past Surgical History / Comment(s): left wrist surgery, nasal surgery, abcess removed from tonsils, Past Anesthesia/Blood Transfusion Reactions: No Reported Reaction Past Psychological History: Depression Smoking Status: Never smoker Past Alcohol Use History: Occasional Past Drug Use History: None Reported - Past Family History Mother Additional Family Medical History / Comment(s): gall bladder removed Father Family Medical History: Coronary Artery Disease (CAD) Medications and Allergies Home Medications Medication Instructions Recorded Confirmed Type Olmesartan [Benicar] 20 mg PO DAILY 06/11/20 09/25/22 History Rosuvastatin Calcium [Crestor] 5 mg PO HS 06/11/20 09/25/22 History Triamterene/Hydrochlorothiazid 1 tab PO DAILY 06/11/20 09/25/22 History [Triamterene-Hctz 37.5-25 mg Tb] Levothyroxine Sodium [Synthroid] 100 mcg PO DAILY 09/10/21 09/25/22 History Cholecalciferol [Vitamin D3 (25 25 mcg PO DAILY 09/25/22 09/25/22 History Mcg = 1000 Iu)] Famotidine [Pepcid] 20 mg PO DAILY 09/25/22 09/25/22 History Allergies Allergy/AdvReac Type Severity Reaction Status Date / Time No Known Allergies Allergy Verified 09/25/22 18:17 Surgical - Exam Vital Signs Temp Pulse Resp BP Pulse Ox 98.2 F 76 18 155/80 98 09/25/22 14:57 09/25/22 14:57 09/25/22 14:57 09/25/22 14:57 09/25/22 14:57 Results - Labs 09/25/22 16:29 09/26/22 08:23 Abnormal Lab Results - Last 24 Hours (Table) 09/25/22 09/26/22 Range/Units 16:29 08:23 Sodium 135 L (137-145) mmol/L Glucose 106 H (74-99) mg/dL AST 60 H (17-59) U/L ALT 56 H (4-49) U/L Total Protein 6.1 L (6.3-8.2) g/dL Diabetes panel 09/25/22 09/26/22 Range/Units 16:29 08:23 Sodium 135 L 140 (137-145) mmol/L Potassium 4.5 3.8 (3.5-5.1) mmol/L Chloride 99 104 (98-107) mmol/L Carbon Dioxide 22 27 (22-30) mmol/L BUN 14 14 (9-20) mg/dL Creatinine 1.02 1.13 (0.66-1.25) mg/dL Glucose 106 H 92 (74-99) mg/dL Calcium 9.7 8.8 (8.4-10.2) mg/dL AST 60 H 41 (17-59) U/L ALT 56 H 46 (4-49) U/L Alkaline Phosphatase 69 67 (38-126) U/L Total Protein 7.4 6.1 L (6.3-8.2) g/dL Albumin 4.6 3.7 (3.5-5.0) g/dL Calcium panel 09/25/22 09/26/22 Range/Units 16: 08: Calcium 9.7 8.8 (8.4-10.2) mg/dL Albumin 4.6 3.7 (3.5-5.0) g/dL Pituitary panel 09/25/22 09/26/22 Range/Units 16: 08:23 Sodium 135 L 140 (137-145) mmol/L Potassium 4.5 3.8 (3.5-5.1) mmol/L Chloride 99 104 (98-107) mmol/L Carbon Dioxide 22 27 (22-30) mmol/L BUN 14 14 (9-20) mg/dL Creatinine 1.02 1.13 (0.66-1.25) mg/dL Glucose 106 H 92 (74-99) mg/dL Calcium 9.7 8.8 (8.4-10.2) mg/dL Adrenal panel 09/25/22 09/26/22 Range/Units 16:29 08:23 Sodium 135 L 140 (137-145) mmol/L Potassium 4.5 3.8 (3.5-5.1) mmol/L Chloride 99 104 (98-107) mmol/L Carbon Dioxide 22 27 (22-30) mmol/L BUN 14 14 (9-20) mg/dL Creatinine 1.02 1.13 (0.66-1.25) mg/dL Glucose 106 H 92 (74-99) mg/dL Calcium 9.7 8.8 (8.4-10.2) mg/dL Total Bilirubin 0.8 0.8 (0.2-1.3) mg/dL AST 60 H 41 (17-59) U/L ALT 56 H 46 (4-49) U/L Alkaline Phosphatase 69 67 (38-126) U/L Total Protein 7.4 6.1 L (6.3-8.2) g/dL Albumin 4.6 3.7 (3.5-5.0) g/dL
[2022-09-26] MEDS ORDERED: ONDANSETRON 4 MG/2 ML VIAL ONE (12:56)
[2022-09-26] MEDS ORDERED: ONDANSETRON 4 MG/2 ML VIAL IVP ONE (12:57)
[2022-09-26] MEDS ORDERED: IV FLUID CONTINUATION 1,000 ML IV ONE (12:57)
[2022-09-26] MEDS ORDERED: DEXAMETHASONE SOD PHOSPHATE 4 MG/ML 1 ML VIAL IV ONE (12:58)
[2022-09-26] MEDS ORDERED: ceFAZolin 1,000 MG VIAL ONE (13:24)
[2022-09-26] MEDS ORDERED: ROCURONIUM 10 MG/ML (5 ML VIAL) IV ONE (13:24)
[2022-09-26] MEDS ORDERED: SUCCINYLCHOLINE CHLORIDE 200 MG/10 ML VIAL IV ONE (13:24)
[2022-09-26] MEDS ORDERED: MIDAZOLAM 2 MG/2 ML VIAL ONE (13:24)
[2022-09-26] MEDS ORDERED: NEOSTIGMINE 1 MG/ML 10 ML VIAL ONE (13:24)
[2022-09-26] MEDS ORDERED: LIDOCAINE 2% INJ 20 MG/ML (2 ML VIAL) ONE (13:24)
[2022-09-26] MEDS ORDERED: SODIUM CHLORIDE 0.9% 100 ML BAG ONE (13:24)
[2022-09-26] MEDS ORDERED: fentaNYL (PF) 50 MCG/ML 2 ML AMP ONE (13:24)
[2022-09-26] MEDS ORDERED: PROPOFOL 10 MG/ML 20 ML VIAL IV ONE (13:24)
[2022-09-26] MEDS ORDERED: HYDROmorphone (PF) 1 MG/ML ONE (13:24)
[2022-09-26] MEDS ORDERED: KETOROLAC 15 MG/ML 1 ML VIAL ONE (13:24)
[2022-09-26] MEDS ORDERED: GLYCOPYRROLATE 0.2 MG/ML 2 ML VIAL ONE (13:24)
[2022-09-26] MEDS ORDERED: HEPARIN SODIUM,PORCINE/PF 5,000 UNIT/0.5 ML SYRINGE SQ ONE (13:29)
[2022-09-26] MEDS ORDERED: SODIUM CHLORIDE 0.9% 50 ML with ceFAZolin 2,000 MG IV ONE ×2 (13:41)
[2022-09-26] MEDS ORDERED: BUPIVACAIN-EPI 0.25%-1:200,000 30 ML VIAL SQ ONE (13:49)
--- NOTE | 2022-09-26 14:13 | P.OP ---
Date of Procedure: 09/26/22 Preoperative Diagnosis: Acute cholecystitis Postoperative Diagnosis: Acute cholecystitis Procedure(s) Performed: Laparoscopic cholecystectomy Anesthesia: RIAN Surgeon: Haider Choi Estimated Blood Loss (ml): 5 Pathology: other (Gallbladder) Condition: stable Disposition: PACU Description of Procedure: The patient was placed on the operating table. The patient received a general endotracheal tube anesthesia. The patients abdomen was prepped and draped in the usual sterile fashion. Through an infraumbilical stab incision, the fascia of the anterior abdominal wall was grasped with a pair of Kochers and then the Veress needle was placed in the peritoneal cavity. Position of the Veress needle was confirmed with positive drop test. The abdomen was then insufflated. After adequate insufflation, the 10 mm trocar was placed in the peritoneal cavity. Following this the laparoscope was placed in the peritoneal cavity. The patient was placed in the head-up, right side up position and then a 5 mm trocar was placed in the right lateral and right subcostal position under direct visualization. A 8 mm trocar was placed in the epigastric position. The gallbladder was grasped in the fundus and infundibulum. Traction on the gallbladder was placed in the lateral and the cephalad positions. The triangle of Calot was visualized.. The cystic duct was bluntly dissected until the union of the cystic duct and common bile duct was seen. A critical view of safety was achieved. The cystic duct was then divided and sealed with the Harmonic scissors. A PDS Endoloop was then placed throughout the cystic duct stump. The cystic artery divided and sealed with the Harmonic scissors. The gallbladder was then removed from the liver bed using Harmonic scissors. The gallbladder was then extracted through the epigastric port site. Operative field was checked for any bleeding spots and Harmonic scissors was used to coagulate the liver bed. The abdomen was irrigated. The trocars were removed. The skin was closed using interrupted 3-0 Vicryl suture. Dermabond dressing were applied. The patient tolerated the procedure well.
[2022-09-26] MEDS ORDERED: ONDANSETRON 4 MG/2 ML VIAL IVP PRN (14:14)
[2022-09-26] MEDS ORDERED: HYDROmorphone 1 MG/ML 1 ML SYRINGE IVP PRN (14:14)
[2022-09-26] MEDS: HYDROmorphone 1 MG/ML 1 ML SYRINGE IVP PRN ×2 (15:14→23:21)
--- NOTE | 2022-09-26 18:59 | P.CONS ---
History of Present Illness - Reason for Consult Consult date: 09/26/22 Medical management Requesting physician: Haider Choi - Chief Complaint Abdominal pain - History of Present Illness This is a pleasant 47-year-old patient follows with Dr. Tejada. Chronic stable medical conditions include asthma, hypertension, hyperlipidemia, obstructive sleep apnea uses CPAP, hypothyroid, depression. Patient been having off-and-on GI symptoms with underlying suspicion for gallbladder problem. Ultrasound in the recent past did show gallbladder sludge. Yesterday patient started increasing right upper quadrant pain. No fever no chills. Some nausea. Patient is due to see outpatient surgeon. Patient is found to have acute cholecystitis. Taken to the OR by Dr. Choi underwent upper scope cholecystectomy. Postprocedure some pain in the right upper quadrant. No nausea vomiting. Review of systems: GEN.: Tired EYES: None HEENT: None NECK: None RESPIRATORY: None CARDIOVASCULAR: None GASTROINTESTINAL: None GENITOURINARY: None MUSCULOSKELETAL: None LYMPHATICS: None HEMATOLOGICAL: None PSYCHIATRY: None NEUROLOGICAL: None Past medical history to include: Asthma, hypertension, hyperlipidemia, obstructive sleep apnea, hypothyroid, depression Social history: Lives alone. No smoking or alcohol. 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 EYES: Pupils equal. Conjunctiva normal. HEENT: External appearance of nose and ears normal, oral cavity grossly normal. NECK: JVD not raised; masses not palpable. HEART: First and second heart sounds are normal; no edema. LUNGS: Respiratory rate normal; clear to auscultation. ABDOMEN: Soft, nontender, liver spleen not palpable, no masses palpable. PSYCH: Alert and oriented x3; mood and affect normal. MUSCULOSKELETAL:No Clubbing/cyanosis;muscles-grossly intact NEUROLOGICAL: Cranial nerves grossly intact; no facial asymmetry, power and sensation grossly intact. LYMPHATICS: No lymph nodes palpable in the axilla and neck INVESTIGATIONS, reviewed in the clinical context: White count 9.9 hemoglobin 15.1 platelets 285 potassium 3.8 creatinine 1.13 Gallbladder ultrasound. Gallbladder somewhat contracted with any no myelomatosis. Positive De Paz sign. Common bile duct normal limits. Assessment and plan: -Acute cholecystitis followed by laparoscopic cholecystectomy. IV Unasyn. Diet per Dr. Choi -Morbid obesity BMI 40.4 Weight loss measures -Essential hypertension Benicar 20 mg -Hyperlipidemia Crestor 5 mg daily at bedtime -Hypothyroid Synthroid 100 g a -GERD Pepcid 20 mg a day Diet being advanced per surgery. IV fluids. IV Unasyn. Subcu Lovenox. Care was discussed with the patient. Questions answered. Activity as tolerated. Thank you Dr. Choi Past Medical History Past Medical History: Asthma, Hyperlipidemia, Hypertension, Sleep Apnea/CPAP/BIPAP, Thyroid Disorder History of Any Multi-Drug Resistant Organisms: None Reported Past Surgical History: Orthopedic Surgery Additional Past Surgical History / Comment(s): left wrist surgery, nasal surgery, abcess removed from tonsils, Past Anesthesia/Blood Transfusion Reactions: No Reported Reaction Past Psychological History: Depression Smoking Status: Never smoker Past Alcohol Use History: Occasional Past Drug Use History: None Reported - Past Family History Mother Additional Family Medical History / Comment(s): gall bladder removed Father Family Medical History: Coronary Artery Disease (CAD) Medications and Allergies Home Medications Medication Instructions Recorded Confirmed Type Olmesartan [Benicar] 20 mg PO DAILY 06/11/20 09/25/22 History Rosuvastatin Calcium [Crestor] 5 mg PO HS 06/11/20 09/25/22 History Triamterene/Hydrochlorothiazid 1 tab PO DAILY 06/11/20 09/25/22 History [Triamterene-Hctz 37.5-25 mg Tb] Levothyroxine Sodium [Synthroid] 100 mcg PO DAILY 09/10/21 09/25/22 History Cholecalciferol [Vitamin D3 (25 25 mcg PO DAILY 09/25/22 09/25/22 History Mcg = 1000 Iu)] Famotidine [Pepcid] 20 mg PO DAILY 09/25/22 09/25/22 History Allergies Allergy/AdvReac Type Severity Reaction Status Date / Time No Known Allergies Allergy Verified 09/25/22 18:17 Physical Exam Vitals: Vital Signs Temp Pulse Pulse Pulse Resp BP BP 09/26/22 14:44 75 16 09/26/22 14:29 84 16 09/26/22 14:14 98.6 F 72 12 09/26/22 12:45 97.3 F L 85 16 140/66 09/26/22 08:27 98.3 F 65 16 118/66 09/26/22 01:53 97.4 F L 75 17 122/56 09/25/22 22:43 97.4 F L 66 16 136/73 09/25/22 18:07 79 18 146/72 BP Pulse Ox 09/26/22 14:44 110/52 95 09/26/22 14:29 131/62 100 09/26/22 14:14 137/63 98 09/26/22 12:45 95 09/26/22 08:27 97 09/26/22 01:53 96 09/25/22 22:43 99 09/25/22 18:07 97 Intake and Output 09/26/22 09/26/22 09/26/22 06:59 14:59 22:59 Intake Total 1400 850 Output Total 10 Balance 1400 840 Intake: IV 850 Intake, IV Titration 1400 Amount Ampicillin-Sulbactam 3 gm 100 In Sodium Chloride 0.9% 100 ml @ 200 mls/hr IVPB Q8HR [facility] Rx#:[id number] Sodium Chloride 0.9% 1, 1300 000 ml @ 130 mls/hr IV . [id number] [facility] Rx#:[id number] Output: Estimated Blood Loss 10 Other: Voiding Method Toilet # Voids 3 Results CBC & Chem 7: 09/25/22 16:29 09/26/22 08:23 Labs: Abnormal Lab Results - Last 24 Hours (Table) 09/25/22 09/26/22 Range/Units 16:29 08:23 Sodium 135 L (137-145) mmol/L Glucose 106 H (74-99) mg/dL AST 60 H (17-59) U/L ALT 56 H (4-49) U/L Total Protein 6.1 L (6.3-8.2) g/dL
[2022-09-26] MEDS ORDERED: ATORVASTATIN 10 MG TAB PO SCH (21:00)
[2022-09-27] MEDS: SODIUM CHLORIDE 0.9% 1,000 ML IV SCH ×2 (02:41→10:19)
[2022-09-27] MEDS: HYDROmorphone 1 MG/ML 1 ML SYRINGE IVP PRN (06:27)
[2022-09-27] MEDS ORDERED: LEVOTHYROXINE 100 MCG TAB PO SCH (06:30)
[2022-09-27] MEDS: AMPICILLIN-SULBACTAM 3 GM in SODIUM CHLORIDE 0.9% 100 ML IVPB SCH (07:24)
[2022-09-27] MEDS: PANTOPRAZOLE 40 MG/10 ML VIAL IVP SCH (07:27)
[2022-09-27 07:33] VITALS: BP 125/75; PULSE 79; RESP 16; TEMP 98.1
[2022-09-27] MEDS ORDERED: CHOLECALCIFEROL 25 MCG (1000 IU) TABLET PO SCH (09:00)
[2022-09-27] MEDS ORDERED: ENOXAPARIN 40 MG/0.4 ML SYRINGE SQ SCH (09:00)
[2022-09-27] MEDS ORDERED: LOSARTAN 50 MG TAB PO SCH (09:00)
[2022-09-27] MEDS ORDERED: FAMOTIDINE 20 MG TAB PO SCH (09:00)
[2022-09-27] MEDS ORDERED: TRIAMTERENE-HCTZ 37.5-25MG 1 EACH TAB PO SCH (09:00)
[2022-09-27] MEDS ORDERED: HYDROcodone/APAP 5-325MG 1 EACH TAB PO PRN (09:54)
--- NOTE | 2022-09-27 12:37 | P.DS ---
Providers Date of admission: 09/25/22 18:39 Expected date of discharge: 09/27/22 Attending physician: Haider Choi Consults: 09/26/22 10:48 Consult Physician Routine Consulting Provider: Shawn Crawley Consult Reason/Comments: medical management Do you want consulting provider notified?: Yes Primary care physician: [facility] Course: This a 47-year-old male [facility] with complaints of severe right upper quadrant pain. Patient went laparoscopically cholecystectomy for cholecystitis. Patient did well postoperatively. He was discharged home on postoperative day 1. Procedures: Laparoscopic cholecystectomy Patient Condition at Discharge: Good Plan - Discharge Summary Discharge Rx Participant: No New Discharge Prescriptions: New Ibuprofen [Motrin] 600 mg PO Q6HR PRN #40 tab PRN Reason: Pain oxyCODONE HCL [OxyIR] 5 mg PO Q6H PRN 3 Days #10 tab PRN Reason: Pain Amoxic-Pot Clav 875-125Mg [Augmentin 875-125] 1 tab PO Q12HR #6 tab Docusate [Colace] 100 mg PO BID #20 capsule Acetaminophen Tab [Tylenol] 650 mg PO Q6H #30 tab Continue Triamterene/Hydrochlorothiazid [Triamterene-Hctz 37.5-25 mg Tb] 1 tab PO DAILY Rosuvastatin Calcium [Crestor] 5 mg PO HS Olmesartan [Benicar] 20 mg PO DAILY Levothyroxine Sodium [Synthroid] 100 mcg PO DAILY Famotidine [Pepcid] 20 mg PO DAILY Cholecalciferol [Vitamin D3 (25 Mcg = 1000 Iu)] 25 mcg PO DAILY Discharge Medication List Olmesartan [Benicar] 20 mg PO DAILY 06/11/20 [History] Rosuvastatin Calcium [Crestor] 5 mg PO HS 06/11/20 [History] Triamterene/Hydrochlorothiazid [Triamterene-Hctz 37.5-25 mg Tb] 1 tab PO DAILY 06/11/20 [History] Levothyroxine Sodium [Synthroid] 100 mcg PO DAILY 09/10/21 [History] Cholecalciferol [Vitamin D3 (25 Mcg = 1000 Iu)] 25 mcg PO DAILY 09/25/22 [History] Famotidine [Pepcid] 20 mg PO DAILY 09/25/22 [History] Acetaminophen Tab [Tylenol] 650 mg PO Q6H #30 tab 09/27/22 [Rx] Amoxic-Pot Clav 875-125Mg [Augmentin 875-125] 1 tab PO Q12HR #6 tab 09/27/22 [Rx] Docusate [Colace] 100 mg PO BID #20 capsule 09/27/22 [Rx] Ibuprofen [Motrin] 600 mg PO Q6HR PRN #40 tab 09/27/22 [Rx] oxyCODONE HCL [OxyIR] 5 mg PO Q6H PRN 3 Days #10 tab 09/27/22 [Rx] Follow up Appointment(s)/Referral(s): Gerald Tejada DO [Primary Care Provider] - 09/28/22 11:00 am Haider Choi MD [STAFF PHYSICIAN] - 10/11/22 1:30 pm Patient Instructions/Handouts: Laparoscopic Cholecystectomy (DC) Discharge Disposition: HOME SELF-CARE
--- NOTE | 2022-09-27 17:28 | P.PN ---
Progress Note - Text Progress Note Date: 09/27/22 - Chief Complaint Abdominal pain Hospital course: This is a pleasant 47-year-old patient follows with Dr. Tejada. Chronic stable medical conditions include asthma, hypertension, hyperlipidemia, obstructive sleep apnea uses CPAP, hypothyroid, depression. Patient been having off-and-on GI symptoms with underlying suspicion for gallbladder problem. Ultrasound in the recent past did show gallbladder sludge. Yesterday patient started increas ing right upper quadrant pain. No fever no chills. Some nausea. Patient is due to see outpatient surgeon. Patient is found to have acute cholecystitis. Taken to the OR by Dr. Choi underwent upper scope cholecystectomy. Postprocedure some pain in the right upper quadrant. No nausea vomiting. September 27: Doing well. Pain control. Up to the bathroom. No nausea vomiting. Did tolerate his breakfast. Questions answered Past medical history to include: Asthma, hypertension, hyperlipidemia, obstructive sleep apnea, hypothyroid, depression Social history: Lives alone. No smoking or alcohol. 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 EYES: Pupils equal. Conjunctiva normal. HEENT: External appearance of nose and ears normal, oral cavity grossly normal. NECK: JVD not raised; masses not palpable. HEART: First and second heart sounds are normal; no edema. LUNGS: Respiratory rate normal; clear to auscultation. ABDOMEN: Soft, nontender, liver spleen not palpable, no masses palpable. PSYCH: Alert and oriented x3; mood and affect normal. INVESTIGATIONS, reviewed in the clinical context: White count 9.9 hemoglobin 15.1 platelets 285 potassium 3.8 creatinine 1.13 Gallbladder ultrasound. Gallbladder somewhat contracted with any no myelomatosis. Positive De Paz sign. Common bile duct normal limits. Assessment and plan: -Acute cholecystitis followed by laparoscopic cholecystectomy. IV Unasyn. Diet per Dr. Choi. 3. More days of Augmentin -Morbid obesity BMI 40.4 Weight loss measures -Essential hypertension Benicar 20 mg -Hyperlipidemia Crestor 5 mg daily at bedtime -Hypothyroid Synthroid 100 g a -GERD Pepcid 20 mg a day Doing well. Discussed with patient. Possibly DC him today Thank you Dr. Choi
== END 2022-09-27 13:23 | disposition home or self-care (01) ==
LOC: EC 14:14 → 4SSUR 18:39 → INTOOBSV 18:39 → 4SSUR 19:14
PROVIDERS: ADMIT Surgery; ATTEND Surgery
DX: K81.2 Acute cholecystitis with chronic cholecystitis (principal); I10 Essential (primary) hypertension; J45.909 Unspecified asthma, uncomplicated; E78.5 Hyperlipidemia, unspecified; G47.33 Obstructive sleep apnea (adult) (pediatric); E03.9 Hypothyroidism, unspecified; K21.9 Gastro-esophageal reflux disease without esophagitis; E66.01 Morbid (severe) obesity due to excess calories; Z68.41 Body mass index [BMI] 40.0-44.9, adult; F32.A Depression, unspecified; Z79.890 Hormone replacement therapy; Z79.899 Other long term (current) drug therapy; Z98.890 Other specified postprocedural states; Z83.79 Family history of other diseases of the digestive system; Z82.49 Family history of ischemic heart disease and other diseases of the circulatory system
CPT/HCPCS: 96376 ×2; 96374; 96375; 99285; 36415; 88304; 80053 ×2; 82150; 83605; 83690; 85025; 76705; 47562; G0378 ×2; J2250; J0330; J2270 ×2; J1100; J2710; J2405; J0690; J1650; J3010; J1170 ×2; J0295 ×3; J1885 ×2; J2704; C9113 ×3; J2001

== ENCOUNTER 2022-11-15 11:45 | Day surgery (SDC) | payer OTHER ==
[~2022-11-15 11:45] MED LIST: LACTATED RINGERS 1,000 ML IV SCH; LIDOCAINE 1% (10MG/ML) FOR IV START INTRADERMA PRN
[2022-11-15 12:28] VITALS: TEMP 97.5
[2022-11-15] MEDS ORDERED: PROPOFOL 10 MG/ML 20 ML VIAL IV ONE (12:38)
[2022-11-15] MEDS ORDERED: LIDOCAINE 2% INJ 20 MG/ML (2 ML VIAL) ONE (12:38)
--- NOTE | 2022-11-15 12:48 | P.OP ---
Date of Procedure: 11/15/22 Preoperative Diagnosis: GERD Postoperative Diagnosis: Antral gastritis Small sliding hiatal hernia Mild esophagitis Procedure(s) Performed: EGD Anesthesia: MAC Surgeon: Haider Choi Pathology: other Condition: stable Disposition: PACU Description of Procedure: The patient's placed on the endoscopy table in the lateral position. He received IV sedation. The gastro-/oropharynx passed in the esophagus and stomach. Scope some placed through the pylorus. The first and second portion of the duodenum appeared normal. Scope was then brought back the antrum and this appeared mildly inflamed. A biopsies performed. The scope was then retroflexed and the remainder the stomach appeared normal. There was a small sliding hiatal hernia. The GE junction was at 38 cm. The distal esophagus was minimal inflamed. A biopsies performed. The proximal esophagus appeared normal. Scope was withdrawn for patient.
[2022-11-15 13:09] VITALS: BP 126/82; PULSE 78; RESP 16
== END 2022-11-15 13:24 | disposition home or self-care (01) ==
LOC: ORWHC2ENDO 11:45
PROVIDERS: ATTEND Surgery
DX: K29.50 Unspecified chronic gastritis without bleeding (principal); K44.9 Diaphragmatic hernia without obstruction or gangrene; K21.00 Gastro-esophageal reflux disease with esophagitis, without bleeding; I10 Essential (primary) hypertension; E78.5 Hyperlipidemia, unspecified; J45.909 Unspecified asthma, uncomplicated; G47.33 Obstructive sleep apnea (adult) (pediatric); E03.9 Hypothyroidism, unspecified; K21.9 Gastro-esophageal reflux disease without esophagitis; Z79.890 Hormone replacement therapy; Z79.899 Other long term (current) drug therapy
CPT/HCPCS: 88305; 43239; J2704; J2001

== ENCOUNTER → 2022-12-13 | Outpatient (CLI) | payer OTHER ==
--- NOTE | 2022-12-14 08:17 | US ---
EXAMINATION TYPE: US thyroid st tissue head/neck DATE OF EXAM: 12/13/2022 COMPARISON: 1122 CLINICAL INDICATION: Male, 47 years old with history of E04.1 THYROID NODULE; thyroid nodule GLAND SIZE: Right Lobe: 5.4 x 2.0 x 2.3 cm Overall Parenchyma: heterogenous Left Lobe: 4.8 x 1.7 x 1.8 cm Overall Parenchyma: heterogenous Isthmus Thickness: 0.5 cm NODULES RIGHT: # of nodules measured on right: 1 1. 2.6 X 1.6 x 2.5 cm, lower mid, solid or almost completely solid, isoechoic nodule, which is wide r than tall, with smooth margins, without echogenic foci. Prior size: 2.6 x 1.6 x 2.3 cm LEFT: # of nodules measured on left: 0 ISTHMUS: # of nodules measured in the isthmus: 0 Bilateral neck scanned, no evidence of lymphadenopathy. Technical limitations due to patient's body habitus and gland extending past clavicle IMPRESSION: TR3 nodule is considered mildly suspicious. Although Stable consider fine-needle biopsy. Diffuse glan dular heterogeneity and glandular enlargement. 2017 ACR TI-RADS LEVEL: TR3 *Highest TI-RADS level nodule reported
== END | disposition home or self-care (01) ==
LOC: RADUSWWP 16:53
PROVIDERS: ATTEND Family Medicine
DX: E04.1 Nontoxic single thyroid nodule (principal)
CPT/HCPCS: 76536

== ENCOUNTER 2023-06-10 18:36 | Emergency (ER) | payer OTHER ==
[2023-06-10 18:46] VITALS: TEMP 98.2
--- NOTE | 2023-06-10 18:58 | ED ---
Chest Pain HPI - General Source: patient Mode of arrival: ambulatory Limitations: no limitations <Kalin Ceja - Last Filed: 06/10/23 18:58> - History of Present Illness MD Complaint: chest pain Onset/Timin -: hour(s) Onset: during rest Pain Location: substernal, epigastric Pain Radiation: none Severity: mild Quality: other (Burning) Consistency: constant Improves With: nothing Worsens With: nothing Treatments Prior to Arrival: none <Av Cai - Last Filed: 06/21/23 08:58> - General Chief Complaint: Chest Pain Stated Complaint: Chest Pain Time Seen by Provider: 06/10/23 18:58 - History of Present Illness Initial Comments: 48-year-old male with past medical history significant for hypertension presenting to the ED with a chief complaint of chest pain. Patient states she was at rest when he started to experience pain in the left side of his chest. Pain is burning in nature. Pain does not radiate. It is a 2 on a 10 in severity. No nausea or vomiting. No shortness of breath. No dizziness or lightheadedness. (Kalin Ceja) - Related Data Home Medications Medication Instructions Recorded Confirmed Olmesartan [Benicar] 20 mg PO DAILY 06/11/20 06/10/23 Triamterene/Hydrochlorothiazid 1 tab PO DAILY 06/11/20 06/10/23 [Triamterene-Hctz 37.5-25 mg Tb] Levothyroxine Sodium [Synthroid] 100 mcg PO DAILY 09/10/21 06/10/23 Cholecalciferol [Vitamin D3 (25 50 mcg PO DAILY 09/25/22 06/10/23 Mcg = 1000 Iu)] Omeprazole 20 mg PO BID 11/13/22 06/10/23 Triamcinolone 0.1% Cream [Kenalog 1 applicatio TOPICAL BID 06/10/23 06/10/23 0.1% Cream] Allergies Allergy/AdvReac Type Severity Reaction Status Date / Time mold Allergy Mild sinus Verified 06/10/23 22:39 problems dander Allergy watery, Uncoded 11/15/22 12:20 itchy eyes dust Allergy sinus Uncoded 11/15/22 12:20 problems Review of Systems ROS Other: All systems not noted in ROS Statement are negative. <Kalin Ceja - Last Filed: 06/10/23 18:58> ROS Other: All systems not noted in ROS Statement are negative. Constitutional: Denies: fever, chills Respiratory: Denies: cough, dyspnea Cardiovascular: Reports: chest pain. Denies: palpitations, edema, syncope Gastrointestinal: Denies: abdominal pain, vomiting, diarrhea Genitourinary: Denies: dysuria, hematuria Musculoskeletal: Denies: back pain Skin: Denies: rash Neurological: Denies: headache, weakness <TrellAv - Last Filed: 06/21/23 08:58> ROS Statement: Those systems with pertinent positive or pertinent negative responses have been documented in the HPI. EKG Findings - EKG Results: EKG: interpreted by ERMD, sinus rhythm (Rate 79 bpm), normal axis, normal QRS <TrellAv - Last Filed: 06/21/23 08:58> Past Medical History Past Medical History: Asthma, GERD/Reflux, Hyperlipidemia, Hypertension, Sleep Apnea/CPAP/BIPAP, Thyroid Disorder Additional Past Medical History / Comment(s): Frequent stomach discomfort, Cpap at night History of Any Multi-Drug Resistant Organisms: None Reported Past Surgical History: Cholecystectomy, Orthopedic Surgery Additional Past Surgical History / Comment(s): left wrist surgery, nasal surgery, abcess removed from tonsils Past Anesthesia/Blood Transfusion Reactions: No Reported Reaction Additional Past Anesthesia/Blood Transfusion Reaction / Comment(s): Pt has never had a blood transfusion. Past Psychological History: Depression Smoking Status: Never smoker Past Alcohol Use History: Rare Past Drug Use History: None Reported - Past Family History Mother Additional Family Medical History / Comment(s): gall bladder removed Father Family Medical History: Coronary Artery Disease (CAD) Additional Family Medical History / Comment(s): <Kalin Ceja - Last Filed: 06/10/23 18:58> General Exam Limitations: no limitations <Kalin Ceja - Last Filed: 06/10/23 18:58> Limitations: no limitations General appearance: alert, in no apparent distress Head exam: Present: atraumatic, normocephalic Eye exam: Present: normal appearance. Absent: scleral icterus, conjunctival injection Neck exam: Present: normal inspection Respiratory exam: Present: normal lung sounds bilaterally. Absent: respiratory distress, wheezes, rales, rhonchi, stridor Cardiovascular Exam: Present: regular rate, normal rhythm, normal heart sounds. Absent: systolic murmur, diastolic murmur, rubs, gallop GI/Abdominal exam: Present: soft. Absent: distended, tenderness, guarding, rebound, rigid, mass Extremities exam: Present: normal inspection, normal capillary refill. Absent: pedal edema, calf tenderness Back exam: Present: normal inspection. Absent: CVA tenderness (R), CVA tenderness (L) Neurological exam: Present: alert Skin exam: Present: warm, dry, intact, normal color. Absent: rash <Av Cai - Last Filed: 06/21/23 08:58> - General Exam Comments Initial Comments: Visual Physical Exam Vital signs reviewed General: Well-appearing, nontoxic, no acute distress. Head: Normocephalic, atraumatic Eyes: PERRLA, EOMI ENT: Airway patent Chest: Nonlabored breathing Skin: No visual rash, normal skin tone Neuro: Alert and oriented 3 Musculoskeletal: No gross abnormalities (Kalin Ceja) Course Vital Signs 06/10/23 06/10/23 18:42 23:11 Temperature 98.2 F Pulse Rate 88 71 Respiratory 18 19 Rate Blood Pressure 145/83 118/58 O2 Sat by Pulse 97 98 Oximetry Chest Pain MDM <Kalin Ceja - Last Filed: 06/10/23 18:58> <Av Cai - Last Filed: 06/21/23 08:58> - MDM Quicknote portion performed. Signed Kalin Ceja PA-C (Kalin Ceja) The patient had chest x-ray which I interpreted as negative for acute infiltrate, pneumothorax, congestive heart failure Was pt. sent in by a medical professional or institution (Dr. PA, DRUM SPRAYER, urgent care, hospital, or alf...) When possible be specific @ -[No] Did you speak to anyone other than the patient for history (EMS, parent, family, police, friend...)? What history was obtained from this source @ -[No] Did you review nursing and triage notes (agree or disagree)? Why? @ -[I reviewed and agree with nursing and triage notes] Were old charts reviewed (outside hosp., previous admission, EMS record, old EKG, old radiological studies, urgent care reports/EKG's, alf records)? Report findings @ -[No old charts were reviewed] Differential Diagnosis (chest pain, altered mental status, abdominal pain women, abdominal pain men, vaginal bleeding, weakness, fever, dyspnea, syncope, headache, dizziness, GI bleed, back pain, seizure, CVA, palpatations, mental health, musculoskeletal)? @ -Differential Chest Pain: Stable Angina, Unstable Angina, STEMI, NSTEMI Aortic Dissection, Pneumothorax, Musculoskeletal, Esophageal Spasm GERD, Cholecystitis, Pancreatitis, Zoster, this is not meant to be an all-inclusive list. EKG interpreted by me (3pts min.). @ -[I interpreted As above] X-rays interpreted by me (1pt min.). @ -[I interpreted as above CT interpreted by me (1pt min.). @ -[None done] U/S interpreted by me (1pt. min.). @ -[None done] What testing was considered but not performed or refused? (CT, X-rays, U/S, labs)? Why? @ -[None] What meds were considered but not given or refused? Why? @ -[None] Did you discuss the management of the patient with other professionals (professionals i.e. , PA, DRUM SPRAYER, lab, RT, psych nurse, social security benefits interviewer, web marketing strategist, teacher, air crew officer, director case)? Give summary @ -[No] Was smoking cessation discussed for >3mins.? @ -[No] Was critical care preformed (if so, how long)? @ -[No] Were there social determinants of health that impacted care today? How? (Homelessness, low income, unemployed, alcoholism, drug addiction, transportation, low edu. Level, literacy, decrease access to med. care, [facility], rehab)? @ -[No] Was there de-escalation of care discussed even if they declined (Discuss DNR or withdrawal of care, Hospice)? DNR status @ -[No] What co-morbidities impacted this encounter? (DM, HTN, Smoking, COPD, CAD, Cancer, CVA, ARF, Chemo, Hep., AIDS, mental health diagnosis, sleep apnea, morbid obesity)? @ -[None] Was patient admitted / discharged? Hospital course, mention meds given and route, prescriptions, significant lab abnormalities, going to OR and other pertinent info. @ -[Patient is a 48-year-old man presenting to have evaluation for chest pain that he states is similar to previous reflux. The patient has had symptoms for over 9 hours and his troponin is negative, therefore does not appear that second troponin will be necessary at this point. The patient's history and physical most consistent with reflux, though we did discuss having follow-up for possibility of stress test. Discussed appropriate return parameters Undiagnosed new problem with uncertain prognosis? @ -[No] Drug Therapy requiring intensive monitoring for toxicity (Heparin, Nitro, Insulin, Cardizem)? @ -[No] Were any procedures done? @ -[No] Diagnosis/symptom? @ -[Acute chest pain Acute, or Chronic, or Acute on Chronic? @ -[Acute Uncomplicated (without systemic symptoms) or Complicated (systemic symptoms)? @ -[Uncomplicated Side effects of treatment? @ -[No] Exacerbation, Progression, or Severe Exacerbation? @ -[No] Poses a threat to life or bodily function? How? (Chest pain, [place], [place], pneumonia, PE, COPD, DKA, ARF, appy, cholecystitis, CVA, Diverticulitis, Homicidal, Suicidal, threat to staff... and all critical care pts) @ -[Low likelihood (Av Cai) Disposition <Kalin Ceja - Last Filed: 06/10/23 18:58> Is patient prescribed a controlled substance at d/c from ED?: No <Av Cai - Last Filed: 06/21/23 08:58> Clinical Impression: Chest pain Disposition: HOME SELF-CARE Condition: Good Referrals: Gerald Tejada DO [Primary Care Provider] - 1-2 days
[2023-06-10 19:53] LABS: Basophils # (A) 0.1 k/uL (0-0.2); Basophils % (A) 1 %; Eosinophils # (A) 0.1 k/uL (0-0.7); Eosinophils % (A) 1 %; HCT 44.4 % (39.0-53.0); HGB 15.5 gm/dL (13.0-17.5); Lymphocytes % (A) 19 %; MCH 29.4 pg (25.0-35.0); MCHC 34.8 g/dL (31.0-37.0); MCV 84.4 fL (80.0-100.0); Monocytes # (A) 0.5 k/uL (0-1.0); Monocytes % (A) 5 %; Neutrophils # (A) 7.6 k/uL (1.3-7.7); Neutrophils % (A) 73 %; Platelet Count 320 k/uL (150-450); RBC 5.26 m/uL (4.30-5.90); RDW 12.4 % (11.5-15.5); WBC 10.4 k/uL (3.8-10.6)
[2023-06-10 20:03] LABS: INR 0.9 (<1.2)
[2023-06-10 20:04] LABS: Partial Thromboplastin Time 27.1 sec (22.0-30.0); Prothrombin Time 10.1 sec (10.0-12.5)
[2023-06-10 20:11] LABS: ALT 41 U/L (4-49); AST 45 U/L (17-59); African American GFR (CKD) >90 (>60 ml/min/1.73 sqM); Albumin 4.8 g/dL (3.5-5.0); Alkaline Phosphatase 91 U/L (38-126); Anion Gap 12 mmol/L; Blood Urea Nitrogen 19 mg/dL (9-20); Calcium 9.8 mg/dL (8.4-10.2); Carbon Dioxide 23 mmol/L (22-30); Chloride 102 mmol/L (98-107); Glucose 119 mg/dL (74-99); Non-African American GFR(CKD) 81 (>60 ml/min/1.73 sqM); Potassium 3.6 mmol/L (3.5-5.1); Sodium 137 mmol/L (137-145); Total Bilirubin 0.6 mg/dL (0.2-1.3); Total Protein 7.7 g/dL (6.3-8.2)
--- NOTE | 2023-06-10 21:54 | XR ---
EXAMINATION TYPE: XR chest 2V DATE OF EXAM: 06/10/2023 7:11 PM CLINICAL INDICATION:Male, 48 years old with history of Chest Pain; [facility] COMPARISON: None TECHNIQUE: XR chest 2V. Frontal PA and lateral views of the chest. FINDINGS: Lines/Tubes: None. Heart/mediastinum: Cardiomediastinal silhouette is well defined. Heart size is normal. Mildly tortu ous aorta. Pulmonary vascularity: Mild central congestion with question slight cephalization of flow. Lungs/Pleura: There is no evidence of pleural effusion, focal consolidation, or pneumothorax. Musculoskeletal: No acute osseous abnormality demonstrated in the limits of the exam. Mild degenerat sophie changes of the spine and shoulders. Other findings: None. IMPRESSION: Mild pulmonary vascular congestion suggested, correlate for mild fluid overload. Otherwise no acute cardiopulmonary abnormality.
[2023-06-10 23:06] LABS: Appearance,Urine Clear (Clear); Bilirubin,Urine Negative (Negative); Blood,Urine Negative (Negative); Color,Urine Colorless; Glucose,Urine (UA) Negative (Negative); Ketones,Urine Negative (Negative); Leukocyte Esterase,Urine Negative (Negative); Nitrite,Urine Negative (Negative); Protein,Urine Negative (Negative); Urobilinogen,Urine <2.0 mg/dL (<2.0)
[2023-06-10 23:28] VITALS: BP 118/58; PULSE 71; RESP 19
== END 2023-06-10 23:48 | disposition home or self-care (01) ==
LOC: EC 18:36
DX: R07.9 Chest pain, unspecified (principal); I10 Essential (primary) hypertension; J45.909 Unspecified asthma, uncomplicated; G47.30 Sleep apnea, unspecified; E07.9 Disorder of thyroid, unspecified; F32.A Depression, unspecified; Z79.890 Hormone replacement therapy; Z79.899 Other long term (current) drug therapy; Z88.8 Allergy status to other drugs, medicaments and biological substances; Z90.49 Acquired absence of other specified parts of digestive tract
CPT/HCPCS: 36415; 71046; 80053; 81003; 83735; 84484; 85025; 85610; 85730; 93005; 99285

== ENCOUNTER → 2023-08-05 | Outpatient (CLI) | payer OTHER ==
--- NOTE | 2023-08-06 13:33 | US ---
EXAMINATION TYPE: US thyroid st tissue head/neck DATE OF EXAM: 08/05/2023 COMPARISON: 12/13/2022 CLINICAL INDICATION: Male, 48 years old with history of E04.1 NONTOX SINGLE THYROID NODULE; thy nodul es GLAND SIZE: Right Lobe: 5.2 x 2.2 x 2.0 cm Overall Parenchyma: heterogenous Left Lobe: 3.6 x 1.5 x 1.5 cm Overall Parenchyma: heterogenous Isthmus Thickness: .3 cm NODULES RIGHT: # of nodules measured on right: 1 1. 2.6 X 1.7 x 2.9 cm, lower medial, solid or almost completely solid, heterogeneous isoechoic nodu le, which is wider than tall, with smooth margins, without echogenic foci. Prior size: 2.6 x 1.6 x 2.5 cm LEFT: # of nodules measured on left: 0 ISTHMUS: # of nodules measured in the isthmus: 0 Bilateral neck scanned, no evidence of lymphadenopathy. IMPRESSION: Solitary heterogeneous TR3 solid nodule right thyroid lobe shows slight interval increase in size now 2.9 x 2.6 cm (versus 2.6 x 2.5 cm, previously). 2017 ACR TI-RADS LEVEL: TR-RADS 3 - Mildly Suspicious: Follow if > 1.5 cm, FNA if > 2.5 cm *Highest TI-RADS level nodule reported
== END | disposition home or self-care (01) ==
LOC: RADUSWWP 16:07
PROVIDERS: ATTEND Family Medicine
DX: E04.1 Nontoxic single thyroid nodule (principal)
CPT/HCPCS: 76536

== ENCOUNTER 2023-10-25 12:18 | Emergency (ER) | payer OTHER ==
[2023-10-25 12:34] VITALS: RESP 18; TEMP 98.3
--- NOTE | 2023-10-25 13:03 | ED ---
General Adult HPI - General Chief complaint: Abdominal Pain Stated complaint: L sided flank pain Time Seen by Provider: 10/25/23 12:50 Source: patient, RN notes reviewed, old records reviewed Mode of arrival: ambulatory Limitations: no limitations - History of Present Illness Initial comments: This is a 48-year-old male who presents to the emergency department stating that starting this morning he started having some upper abdominal pain just to the [facility]. Patient states it kind of comes and goes and he thinks he might of pulled a muscle but he wanted to be sure so he came in to be evaluated. Patient denies any fever or chills. Patient Nu[place] any direct blunt trauma. Patient denies any nausea vomiting or diarrhea. Patient Nuys any fever. Patient has any chest pain or difficulty breathing. - Related Data Home Medications Medication Instructions Recorded Confirmed Olmesartan [Benicar] 20 mg PO DAILY 06/11/20 06/10/23 Triamterene/Hydrochlorothiazid 1 tab PO DAILY 06/11/20 06/10/23 [Triamterene-Hctz 37.5-25 mg Tb] Levothyroxine Sodium [Synthroid] 100 mcg PO DAILY 09/10/21 06/10/23 Cholecalciferol [Vitamin D3 (25 50 mcg PO DAILY 09/25/22 06/10/23 Mcg = 1000 Iu)] Omeprazole 20 mg PO BID 11/13/22 06/10/23 Triamcinolone 0.1% Cream [Kenalog 1 applicatio TOPICAL BID 06/10/23 06/10/23 0.1% Cream] Allergies Allergy/AdvReac Type Severity Reaction Status Date / Time mold Allergy Mild sinus Verified 10/25/23 12:31 problems prednisone Allergy Swelling Verified 10/25/23 12:31 dander Allergy watery, Uncoded 10/25/23 12:31 itchy eyes dust Allergy sinus Uncoded 10/25/23 12:31 problems Review of Systems ROS Statement: Those systems with pertinent positive or pertinent negative responses have been documented in the HPI. ROS Other: All systems not noted in ROS Statement are negative. Past Medical History Past Medical History: Asthma, GERD/Reflux, Hyperlipidemia, Hypertension, Sleep Apnea/CPAP/BIPAP, Thyroid Disorder Additional Past Medical History / Comment(s): Frequent stomach discomfort, Cpap at night History of Any Multi-Drug Resistant Organisms: None Reported Past Surgical History: Cholecystectomy, Orthopedic Surgery Additional Past Surgical History / Comment(s): left wrist surgery, nasal surg jean carlos, abcess removed from tonsils Past Anesthesia/Blood Transfusion Reactions: No Reported Reaction Additional Past Anesthesia/Blood Transfusion Reaction / Comment(s): Pt has never had a blood transfusion. Past Psychological History: Depression Smoking Status: Never smoker Past Alcohol Use History: Rare Past Drug Use History: None Reported - Past Family History Mother Additional Family Medical History / Comment(s): gall bladder removed Father Family Medical History: Coronary Artery Disease (CAD) Additional Family Medical History / Comment(s): General Exam - General Exam Comments Initial Comments: GENERAL: Patient is well-developed and well-nourished. Patient is nontoxic and well- hydrated and is in no acute distress. ENT: Neck is soft and supple. No significant lymphadenopathy is noted. Oropharynx is clear. Moist mucous membranes. Neck has full range of motion without eliciting any pain. EYES: The sclera were anicteric and conjunctiva were pink and moist. Extraocular movements were intact and pupils were equal round and reactive to light. Eyelids were unremarkable. PULMONARY: Unlabored respirations. Good breath sounds bilaterally. No audible rales rhonchi or wheezing was noted. CARDIOVASCULAR: There is a regular rate and rhythm without any murmurs gallops or rubs. ABDOMEN: Patient has some mild tenderness to the left of center upper abdomen SKIN: Skin is clear with no lesions or rashes and otherwise unremarkable. NEUROLOGIC: Patient is alert and oriented x3. Cranial nerves II through XII are grossly intact. Motor and sensory are also intact. Normal speech, volume and content. Symmetrical smile. MUSCULOSKELETAL: Normal extremities with adequate strength and full range of motion. No lower extremity swelling or edema. No calf tenderness. LYMPHATICS: No significant lymphadenopathy is noted PSYCHIATRIC: Normal psychiatric evaluation. Limitations: no limitations Course Vital Signs 10/25/23 12:29 Temperature 98.3 F Pulse Rate 67 Respiratory 18 Rate Blood Pressure 129/67 O2 Sat by Pulse 99 Oximetry Medical Decision Making - Medical Decision Making EKG is interpreted by myself but EKG shows a sinus rhythm at 69 bpm parables 153 QRS 95 QT interval 378 QTc is 396 per patient EKG shows no ST segment ovation or depression Was pt. sent in by a medical professional or institution (, PA, REGIONAL ECONOMIST, urgent care, hospital, or [facility]...) When possible be specific @ -No Did you speak to anyone other than the patient for history (EMS, parent, family, police, friend...)? What history was obtained from this source @ -No Did you review nursing and triage notes (agree or disagree)? Why? @ -I reviewed and agree with nursing and triage notes Were old charts reviewed (outside hosp., previous admission, EMS record, old EKG, old radiological studies, urgent care reports/EKG's, [facility] records)? Report findings @ -No old charts were reviewed Differential Diagnosis (chest pain, altered mental status, abdominal pain women, abdominal pain men, vaginal bleeding, weakness, fever, dyspnea, syncope, headache, dizziness, GI bleed, back pain, seizure, CVA, palpatations, mental health, musculoskeletal)? @ -Differential Abdominal Pain Men: Appendicitis, cholecystitis, diverticulosis, ischemic bowel, pancreatitis, hepatitis, UTI, gastroenteritis, AAA, incarcerated hernia, bowel obstruction, constipation, inflammatory bowel, hepatitis, peptic ulcer disease, splenic infarction, perforated viscus, testicular torsion, this is not meant to be an all-inclusive list EKG interpreted by me (3pts min.). @ -As above X-rays interpreted by me (1pt min.). @ -None done CT interpreted by me (1pt min.). @ -None done U/S interpreted by me (1pt. min.). @ -None done What testing was considered but not performed or refused? (CT, X-rays, U/S, labs)? Why? @ -None What meds were considered but not given or refused? Why? @ -None Did you discuss the management of the patient with other professionals (professionals i.e. , PA, REGIONAL ECONOMIST, lab, RT, psych nurse, school social worker, superintendent laundry, teacher, associate loan officer, showcase trimmer)? Give summary @ -No Was smoking cessation discussed for >3mins.? @ -No Was critical care preformed (if so, how long)? @ -No Were there social determinants of health that impacted care today? How? (Homelessness, low income, unemployed, alcoholism, drug addiction, transportation, low edu. Level, literacy, decrease access to med. care, [facility], rehab)? @ -No Was there de-escalation of care discussed even if they declined (Discuss DNR or withdrawal of care, Hospice)? DNR status @ -No What co-morbidities impacted this encounter? (DM, HTN, Smoking, COPD, CAD, Cancer, CVA, ARF, Chemo, Hep., AIDS, mental health diagnosis, sleep apnea, morbid obesity)? @ -None Was patient admitted / discharged? Hospital course, mention meds given and route, prescriptions, significant lab abnormalities, going to OR and other pertinent info. @ -Patient was given Toradol in the emergency department did decrease his pain. Patient had no vomiting or diarrhea or fever. Patient's lab work was all normal. At this point time patient will be discharged home to follow-up with his primary medical care doctor if symptoms persist or worsen Undiagnosed new problem with uncertain prognosis? @ -No Drug Therapy requiring intensive monitoring for toxicity (Heparin, Nitro, Insul in, Cardizem)? @ -No Were any procedures done? @ -No Diagnosis/symptom? @ -Left upper quadrant abdominal pain Acute, or Chronic, or Acute on Chronic? @ -Acute Uncomplicated (without systemic symptoms) or Complicated (systemic symptoms)? @ -Complicated Side effects of treatment? @ -No Exacerbation, Progression, or Severe Exacerbation? @ -No Poses a threat to life or bodily function? How? (Chest pain, USA, [place], pneumonia, PE, COPD, DKA, ARF, appy, cholecystitis, CVA, Diverticulitis, Homicidal, Suic idal, threat to staff... and all critical care pts) @ -No - Lab Data Result diagrams: 10/25/23 13:10 10/25/23 13:10 Lab Results 10/25/23 10/25/23 Range/Units 13:10 13:10 WBC 8.9 (3.8-10.6) k/uL RBC 4.97 (4.30-5.90) m/uL Hgb 14.9 (13.0-17.5) gm/dL Hct 42.7 (39.0-53.0) % MCV 85.8 (80.0-100.0) fL MCH 30.0 (25.0-35.0) pg MCHC 34.9 (31.0-37.0) g/dL RDW 12.5 (11.5-15.5) % Plt Count 273 (150-450) k/uL MPV 8.6 Neutrophils % 73 % Lymphocytes % 19 % Monocytes % 5 % Eosinophils % 1 % Basophils % 1 % Neutrophils # 6.5 (1.3-7.7) k/uL Lymphocytes # 1.7 (1.0-4.8) k/uL Monocytes # 0.5 (0-1.0) k/uL Eosinophils # 0.1 (0-0.7) k/uL Basophils # 0.1 (0-0.2) k/uL Sodium 137 (137-145) mmol/L Potassium 3.6 (3.5-5.1) mmol/L Chloride 101 (98-107) mmol/L Carbon Dioxide 25 (22-30) mmol/L Anion Gap 11 mmol/L BUN 14 (9-20) mg/dL Creatinine 1.11 (0.66-1.25) mg/dL Est GFR (CKD-EPI)AfAm 89 (>60 ml/min/1.73 sqM) Est GFR (CKD-EPI)NonAf 77 (>60 ml/min/1.73 sqM) Glucose 91 (74-99) mg/dL Calcium 9.3 (8.4-10.2) mg/dL Total Bilirubin 0.5 (0.2-1.3) mg/dL AST 36 (17-59) U/L ALT 29 (4-49) U/L Alkaline Phosphatase 78 (38-126) U/L Total Protein 7.1 (6.3-8.2) g/dL Albumin 4.6 (3.5-5.0) g/dL Amylase 53 (30-110) U/L Lipase 100 (23-300) U/L Disposition Clinical Impression: Abdominal pain Disposition: HOME SELF-CARE Condition: Good Instructions (If sedation given, give patient instructions): Abdominal Pain (ED) Is patient prescribed a controlled substance at d/c from ED?: No Referrals: Gerald Tejada DO [Primary Care Provider] - 1-2 days Time of Disposition: 14:04
[2023-10-25] MEDS: KETOROLAC 15 MG/ML 1 ML VIAL IVP STA (13:11)
[2023-10-25 13:55] LABS: Basophils # (A) 0.1 k/uL (0-0.2); Basophils % (A) 1 %; Eosinophils # (A) 0.1 k/uL (0-0.7); Eosinophils % (A) 1 %; HCT 42.7 % (39.0-53.0); HGB 14.9 gm/dL (13.0-17.5); Lymphocytes # (A) 1.7 k/uL (1.0-4.8); Lymphocytes % (A) 19 %; MCHC 34.9 g/dL (31.0-37.0); MCV 85.8 fL (80.0-100.0); Mean Platelet Volume 8.6; Monocytes # (A) 0.5 k/uL (0-1.0); Monocytes % (A) 5 %; Neutrophils # (A) 6.5 k/uL (1.3-7.7); Neutrophils % (A) 73 %; Platelet Count 273 k/uL (150-450); RBC 4.97 m/uL (4.30-5.90); RDW 12.5 % (11.5-15.5); WBC 8.9 k/uL (3.8-10.6)
[2023-10-25 13:56] LABS: ALT 29 U/L (4-49); AST 36 U/L (17-59); African American GFR (CKD) 89 (>60 ml/min/1.73 sqM); Albumin 4.6 g/dL (3.5-5.0); Alkaline Phosphatase 78 U/L (38-126); Amylase 53 U/L (30-110); Anion Gap 11 mmol/L; Blood Urea Nitrogen 14 mg/dL (9-20); Calcium 9.3 mg/dL (8.4-10.2); Carbon Dioxide 25 mmol/L (22-30); Chloride 101 mmol/L (98-107); Glucose 91 mg/dL (74-99); Lipase 100 U/L (23-300); Non-African American GFR(CKD) 77 (>60 ml/min/1.73 sqM); Potassium 3.6 mmol/L (3.5-5.1); Sodium 137 mmol/L (137-145); Total Bilirubin 0.5 mg/dL (0.2-1.3); Total Protein 7.1 g/dL (6.3-8.2)
[2023-10-25 14:45] VITALS: BP 127/84; PULSE 68
== END 2023-10-25 14:25 | disposition home or self-care (01) ==
LOC: EC 12:18
DX: R10.12 Left upper quadrant pain (principal); Z88.8 Allergy status to other drugs, medicaments and biological substances; Z91.09 Other allergy status, other than to drugs and biological substances
CPT/HCPCS: 99284; 96374; 36415; 93005; 80053; 82150; 83690; 85025; J1885

== ENCOUNTER 2023-11-04 14:13 | Emergency (ER) | payer OTHER ==
[2023-11-04 15:02] VITALS: TEMP 97.6
--- NOTE | 2023-11-04 15:50 | ED ---
Abdominal Pain HPI - General Chief Complaint: Abdominal Pain Stated Complaint: L Groin Pain Time Seen by Provider: 11/04/23 15:00 Source: patient, RN notes reviewed Mode of arrival: ambulatory Limitations: no limitations - History of Present Illness Initial Comments: 48-year-old male with no significant past medical history presenting with left groin pain since today. Describes the pain as intermittent and sharp, the worst is about 7 out of 10 pain. He has never had this before. Denies any trauma or injury today. Denies testicular pain or swelling, penile discharge, dysuria, urinary frequency, urinary urgency, hematuria, flank pain. Denies new sexual partners. Last bowel movement was today and was normal - Related Data Home Medications Medication Instructions Recorded Confirmed Olmesartan [Benicar] 20 mg PO DAILY 06/11/20 06/10/23 Triamterene/Hydrochlorothiazid 1 tab PO DAILY 06/11/20 06/10/23 [Triamterene-Hctz 37.5-25 mg Tb] Levothyroxine Sodium [Synthroid] 100 mcg PO DAILY 09/10/21 06/10/23 Cholecalciferol [Vitamin D3 (25 50 mcg PO DAILY 09/25/22 06/10/23 Mcg = 1000 Iu)] Omeprazole 20 mg PO BID 11/13/22 06/10/23 Triamcinolone 0.1% Cream [Kenalog 1 applicatio TOPICAL BID 06/10/23 06/10/23 0.1% Cream] Allergies Allergy/AdvReac Type Severity Reaction Status Date / Time mold Allergy Mild sinus Verified 10/25/23 12:31 problems prednisone Allergy Swelling Verified 10/25/23 12:31 dander Allergy watery, Uncoded 10/25/23 12:31 itchy eyes dust Allergy sinus Uncoded 10/25/23 12:31 problems Review of Systems ROS Statement: Those systems with pertinent positive or pertinent negative responses have been documented in the HPI. ROS Other: All systems not noted in ROS Statement are negative. Past Medical History Past Medical History: Asthma, GERD/Reflux, Hyperlipidemia, Hypertension, Sleep Apnea/CPAP/BIPAP, Thyroid Disorder Additional Past Medical History / Comment(s): Frequent stomach discomfort, Cpap at night History of Any Multi-Drug Resistant Organisms: None Reported Past Surgical History: Cholecystectomy, Orthopedic Surgery Additional Past Surgical History / Comment(s): left wrist surgery, nasal surgery, abcess removed from tonsils Past Anesthesia/Blood Transfusion Reactions: No Reported Reaction Additional Past Anesthesia/Blood Transfusion Reaction / Comment(s): Pt has never had a blood transfusion. Past Psychological History: Depression Smoking Status: Never smoker Past Alcohol Use History: Rare Past Drug Use History: None Reported - Past Family History Mother Additional Family Medical History / Comment(s): gall bladder removed Father Family Medical History: Coronary Artery Disease (CAD) Additional Family Medical History / Comment(s): General Exam Limitations: no limitations General appearance: alert, in no apparent distress Respiratory exam: Present: normal lung sounds bilaterally. Absent: respiratory distress, wheezes, rales, rhonchi, stridor Cardiovascular Exam: Present: regular rate, normal rhythm, normal heart sounds. Absent: systolic murmur, diastolic murmur, rubs, gallop, clicks GI/Abdominal exam: Present: soft, normal bowel sounds. Absent: distended, tenderness, guarding, rebound, rigid, bruit, pulsatile mass, hernia exam: Present: other (No tenderness to palpation of left inguinal area, no erythema, no masses, no sign of hernia.) Neurological exam: Present: alert, oriented X3 Psychiatric exam: Present: normal affect, normal mood Skin exam: Present: warm, dry, intact, normal color. Absent: rash Course Vital Signs 11/04/23 14:14 Temperature 97.6 F Pulse Rate 80 Respiratory 16 Rate Blood Pressure 145/82 O2 Sat by Pulse 97 Oximetry Medical Decision Making - Medical Decision Making Was pt. sent in by a medical professional or institution (, SHABBIR, HYDROMETER CALIBRATOR, urgent care, hospital, or correction...) When possible be specific @ -[No] Did you speak to anyone other than the patient for history (EMS, parent, family, police, friend...)? What history was obtained from this source @ -[No] Did you review nursing and triage notes (agree or disagree)? Why? @ -[I reviewed and agree with nursing and triage notes] Were old charts reviewed (outside hosp., previous admission, EMS record, old EKG, old radiological studies, urgent care reports/EKG's, correction records)? Report findings @ -[No old charts were reviewed] Differential Diagnosis (chest pain, altered mental status, abdominal pain women, abdominal pain men, vaginal bleeding, weakness, fever, dyspnea, syncope, headache, dizziness, GI bleed, back pain, seizure, CVA, palpatations, mental health, musculoskeletal)? @ -Differential Abdominal Pain Men: Appendicitis, cholecystitis, diverticulosis, ischemic bowel, pancreatitis, hepatitis, UTI, gastroenteritis, AAA, incarcerated hernia, bowel obstruction, constipation, inflammatory bowel, hepatitis, peptic ulcer disease, splenic infarction, perforated viscus, testicular torsion, this is not meant to be an all-inclusive list EKG interpreted by me (3pts min.). @ -None X-rays interpreted by me (1pt min.). @ -[None done] CT interpreted by me (1pt min.). @ -CT of abdomen pelvis reveals no evidence for obstructive uropathy, nonobstructing right renal calculus present U/S interpreted by me (1pt. min.). @ -Ultrasound of left groin revealed no acute abnormality or hernia What testing was considered but not performed or refused? (CT, X-rays, U/S, labs)? Why? @ -[None] What meds were considered but not given or refused? Why? @ -[None] Did you discuss the management of the patient with other professionals (pro fessionals i.e. , PA, HYDROMETER CALIBRATOR, lab, RT, psych nurse, adoption social worker, abrasive mixer, teacher, administrative officer, keycase assembler)? Give summary @ -[No] Was smoking cessation discussed for >3mins.? @ -[No] Was critical care preformed (if so, how long)? @ -[No] Were there social determinants of health that impacted care today? How? (Homelessness, low income, unemployed, alcoholism, drug addiction, transportation, low edu. Level, literacy, decrease access to med. care, [facility], rehab)? @ -[No] Was there de-escalation of care discussed even if they declined (Discuss DNR or withdrawal of care, Hospice)? DNR status @ -[No] What co-morbidities impacted this encounter? (DM, HTN, Smoking, COPD, CAD, Cancer, CVA, ARF, Chemo, Hep., AIDS, mental health diagnosis, sleep apnea, morbid obesity)? @ -[None] Was patient admitted / discharged? Hospital course, mention meds given and route, prescriptions, significant lab abnormalities, going to OR and other pertinent info. @ -Patient was discharged. Patient was seen and evaluated for left groin pain x 1 day. There is no testicular pain or swelling or masses. No sign of bacterial infection. Ultrasound of left groin reveals no acute abnormality or hernia. Lab work and urine is unremarkable. Discussed with patient risks versus benefits of CT scan of abdomen/pelvis at this time. Patient opts for CT scan to rule out kidney stones. CT scan revealed no acute evidence for obstructive uropathy, nonobstructing right renal calculus was present. Discussed symptoms are likely due to left groin strain. There are no red flag symptoms present and patient is neurovascularly intact. Strict return/alarm symptoms discussed with patient in detail and patient shows understanding and agrees to present. Supportive care discussed. Patient discharged in stable condition. Case discussed with Dr. Cai Undiagnosed new problem with uncertain prognosis? @ -[No] Drug Therapy requiring intensive monitoring for toxicity (Heparin, Nitro, Insulin, Cardizem)? @ -[No] Were any procedures done? @ -[No] Diagnosis/symptom? @ -Left groin strain Acute, or Chronic, or Acute on Chronic? @ -Acute Uncomplicated (without systemic symptoms) or Complicated (systemic symptoms)? @ -Uncomplicated Side effects of treatment? @ -[No] Exacerbation, Progression, or Severe Exacerbation? @ -[No] Poses a threat to life or bodily function? How? (Chest pain, USA, [place], pneumonia, PE, COPD, DKA, ARF, appy, cholecystitis, CVA, Diverticulitis, Homicidal, Suicidal, threat to staff... and all critical care pts) @ -[No] - Lab Data Result diagrams: 11/04/23 15:50 11/04/23 15:50 Lab Results 11/04/23 11/04/23 11/04/23 Range/Units 15:50 15:50 15:50 WBC 7.7 (3.8-10.6) k/uL RBC 5.06 (4.30-5.90) m/uL Hgb 15.1 (13.0-17.5) gm/dL Hct 43.4 (39.0-53.0) % MCV 85.9 (80.0-100.0) fL MCH 29.8 (25.0-35.0) pg MCHC 34.7 (31.0-37.0) g/dL RDW 13.0 (11.5-15.5) % Plt Count 270 (150-450) k/uL MPV 8.7 Neutrophils % 67 % Lymphocytes % 23 % Monocytes % 6 % Eosinophils % 2 % Basophils % 1 % Neutrophils # 5.1 (1.3-7.7) k/uL Lymphocytes # 1.8 (1.0-4.8) k/uL Monocytes # 0.4 (0-1.0) k/uL Eosinophils # 0.2 (0-0.7) k/uL Basophils # 0.1 (0-0.2) k/uL Sodium 139 (137-145) mmol/L Potassium 3.9 (3.5-5.1) mmol/L Chloride 104 (98-107) mmol/L Carbon Dioxide 24 (22-30) mmol/L Anion Gap 11 mmol/L BUN 18 (9-20) mg/dL Creatinine 1.10 (0.66-1.25) mg/dL Est GFR (CKD-EPI)AfAm >90 (>60 ml/min/1.73 sqM) Est GFR (CKD-EPI)NonAf 78 (>60 ml/min/1.73 sqM) Glucose 87 (74-99) mg/dL Plasma Lactic Acid Mukesh (0.7-2.0) mmol/L Calcium 9.5 (8.4-10.2) mg/dL Total Bilirubin 0.6 (0.2-1.3) mg/dL AST 32 (17-59) U/L ALT 27 (4-49) U/L Alkaline Phosphatase 80 (38-126) U/L Total Protein 7.2 (6.3-8.2) g/dL Albumin 4.6 (3.5-5.0) g/dL Urine Color Colorless Urine Appearance Clear (Clear) Urine pH 5.5 (5.0-8.0) Ur Specific [place] 1.004 (1.001-1.035) Urine Protein Negative (Negative) Urine Glucose (UA) Negative (Negative) Urine Ketones Negative (Negative) Urine Blood Negative (Negative) Urine Nitrite Negative (Negative) Urine Bilirubin Negative (Negative) Urine Urobilinogen <2.0 (<2.0) mg/dL Ur Leukocyte Esterase Negative (Negative) 11/04/23 Range/Units 15:50 WBC (3.8-10.6) k/uL RBC (4.30-5.90) m/uL Hgb (13.0-17.5) gm/dL Hct (39.0-53.0) % MCV (80.0-100.0) fL MCH (25.0-35.0) pg MCHC (31.0-37.0) g/dL RDW (11.5-15.5) % Plt Count (150-450) k/uL MPV Neutrophils % % Lymphocytes % % Monocytes % % Eosinophils % % Basophils % % Neutrophils # (1.3-7.7) k/uL Lymphocytes # (1.0-4.8) k/uL Monocytes # (0-1.0) k/uL Eosinophils # (0-0.7) k/uL Basophils # (0-0.2) k/uL Sodium (137-145) mmol/L Potassium (3.5-5.1) mmol/L Chloride (98-107) mmol/L Carbon Dioxide (22-30) mmol/L Anion Gap mmol/L BUN (9-20) mg/dL Creatinine (0.66-1.25) mg/dL Est GFR (CKD-EPI)AfAm (>60 ml/min/1.73 sqM) Est GFR (CKD-EPI)NonAf (>60 ml/min/1.73 sqM) Glucose (74-99) mg/dL Plasma Lactic Acid Mukesh 1.3 (0.7-2.0) mmol/L Calcium (8.4-10.2) mg/dL Total Bilirubin (0.2-1.3) mg/dL AST (17-59) U/L ALT (4-49) U/L Alkaline Phosphatase (38-126) U/L Total Protein (6.3-8.2) g/dL Albumin (3.5-5.0) g/dL Urine Color Urine Appearance (Clear) Urine pH (5.0-8.0) Ur Specific [place] (1.001-1.035) Urine Protein (Negative) Urine Glucose (UA) (Negative) Urine Ketones (Negative) Urine Blood (Negative) Urine Nitrite (Negative) Urine Bilirubin (Negative) Urine Urobilinogen (<2.0) mg/dL Ur Leukocyte Esterase (Negative) Disposition Clinical Impression: Strain of left inguinal muscle Disposition: HOME SELF-CARE Condition: Stable Instructions (If sedation given, give patient instructions): Groin Strain (ED) Additional Instructions: Please return to the Emergency Department if symptoms worsen or any other concerns. Is patient prescribed a controlled substance at d/c from ED?: No Referrals: Gerald Tejada DO [Primary Care Provider] - 1-2 days Time of Disposition: 18:22
[2023-11-04] MEDS: IBUPROFEN 600 MG TAB PO STA (15:58)
[2023-11-04 16:17] LABS: Basophils # (A) 0.1 k/uL (0-0.2); Basophils % (A) 1 %; Eosinophils # (A) 0.2 k/uL (0-0.7); Eosinophils % (A) 2 %; HCT 43.4 % (39.0-53.0); HGB 15.1 gm/dL (13.0-17.5); Lymphocytes # (A) 1.8 k/uL (1.0-4.8); Lymphocytes % (A) 23 %; MCH 29.8 pg (25.0-35.0); MCHC 34.7 g/dL (31.0-37.0); MCV 85.9 fL (80.0-100.0); Mean Platelet Volume 8.7; Monocytes # (A) 0.4 k/uL (0-1.0); Monocytes % (A) 6 %; Neutrophils # (A) 5.1 k/uL (1.3-7.7); Neutrophils % (A) 67 %; Platelet Count 270 k/uL (150-450); RBC 5.06 m/uL (4.30-5.90); WBC 7.7 k/uL (3.8-10.6)
[2023-11-04 16:40] LABS: Appearance,Urine Clear (Clear); Bilirubin,Urine Negative (Negative); Blood,Urine Negative (Negative); Color,Urine Colorless; Glucose,Urine (UA) Negative (Negative); Ketones,Urine Negative (Negative); Leukocyte Esterase,Urine Negative (Negative); Nitrite,Urine Negative (Negative); PH, Urine 5.5 (5.0-8.0); Protein,Urine Negative (Negative); Specific Gravity,Urine 1.004 (1.001-1.035); Urobilinogen,Urine <2.0 mg/dL (<2.0)
[2023-11-04 16:41] LABS: ALT 27 U/L (4-49); AST 32 U/L (17-59); African American GFR (CKD) >90 (>60 ml/min/1.73 sqM); Albumin 4.6 g/dL (3.5-5.0); Alkaline Phosphatase 80 U/L (38-126); Anion Gap 11 mmol/L; Blood Urea Nitrogen 18 mg/dL (9-20); Calcium 9.5 mg/dL (8.4-10.2); Carbon Dioxide 24 mmol/L (22-30); Chloride 104 mmol/L (98-107); Glucose 87 mg/dL (74-99); Non-African American GFR(CKD) 78 (>60 ml/min/1.73 sqM); Potassium 3.9 mmol/L (3.5-5.1); Sodium 139 mmol/L (137-145); Total Bilirubin 0.6 mg/dL (0.2-1.3); Total Protein 7.2 g/dL (6.3-8.2)
--- NOTE | 2023-11-04 16:42 | US ---
EXAMINATION TYPE: US groin LT DATE OF EXAM: 11/04/2023 COMPARISON: NONE CLINICAL INDICATION: Male, 48 years old with history of left groin pain; Pt states left groin pain th at started today TECHNIQUE: Left groin FINDINGS: Left groin in area of pt's pain was scanned with and without valsalva maneuver- no abnor mality could be appreciated at this time to account for pt's pain IMPRESSION: No evidence for hernia or finding to account for patient's pain.
--- NOTE | 2023-11-04 17:48 | CT ---
EXAMINATION TYPE: CT abdomen pelvis wo con CT DLP: 1098.4 mGycm, Automated exposure control for dose reduction was used. DATE OF EXAM: 11/04/2023 5:31 PM COMPARISON: None CLINICAL INDICATION:Male, 48 years old with history of left flank pain; TECHNIQUE: Axial CT abdomen pelvis wo con;Sagittal and coronal reformats were created on a separate workstation. Contrast used: mL of , (none if empty) Oral contrast used: without Oral Contrast (none if empty) FINDINGS: LOWER CHEST: Unremarkable ABDOMEN LIVER: Unremarkable GALLBLADDER AND BILE DUCTS: Gallbladder is surgically absent. PANCREAS: Unremarkable. SPLEEN: Unremarkable. ADRENAL GLANDS: Unremarkable. KIDNEYS AND URETERS: Estrogen right renal calculi measuring up to 3 mm. No left renal cocci. No obstr uctive uropathy. PELVIS BLADDER: Unremarkable REPRODUCTIVE: Unremarkable. ABDOMEN & PELVIS STOMACH AND BOWEL: No evidence of bowel obstruction. PERITONEUM/RETROPERITONEUM: No evidence of pneumoperitoneum or free fluid. VASCULATURE: No evidence of aortic aneurysm. MUSCULOSKELETAL: No acute osseous abnormalities LYMPH NODES: No gross evidence for lymphadenopathy. SOFT TISSUE/ABDOMINAL WALL: Small fat-containing inguinal hernia. Tiny fat-containing buccal hernia. IMPRESSION: 1. No evidence for acute abdominal process. 2. No evidence for obstructive uropathy. Nonobstructing right renal calculus. 3. The appendix is normal.
[2023-11-04 18:38] VITALS: BP 136/84; PULSE 64; RESP 18
== END 2023-11-04 18:28 | disposition home or self-care (01) ==
LOC: EC 14:13
DX: S76.812A Strain of other specified muscles, fascia and tendons at thigh level, left thigh, initial encounter (principal); Z88.8 Allergy status to other drugs, medicaments and biological substances; Z91.048 Other nonmedicinal substance allergy status; X58.XXXA Exposure to other specified factors, initial encounter
CPT/HCPCS: 36415; 74176; 80053; 81003; 83605; 85025; 99284

== ENCOUNTER 2023-11-09 13:07 | Emergency (ER) | payer OTHER ==
[2023-11-09 13:38] VITALS: BP 130/86; PULSE 78; RESP 18; TEMP 98.3
--- NOTE | 2023-11-09 13:50 | ED ---
Abdominal Pain HPI - General Chief Complaint: Abdominal Pain Stated Complaint: ABD PAIN Time Seen by Provider: 11/09/23 13:16 Source: patient, RN notes reviewed Mode of arrival: ambulatory Limitations: no limitations - History of Present Illness Initial Comments: This is a 48-year-old male who presents to the emergency department for right lower quadrant pain. His symptoms started this morning. Describes the pain as being intermittent and occurring in bursts. Denies any radiation of pain into the back or testicles. Also denies any nausea/vomiting or fever/chills. He has no changes in bowel/bladder habits. Patient was evaluated here about a week ago for similar symptoms on the left side. He followed up with his primary care provider who told him that he had an inguinal hernia. MD Complaint: abdominal pain - Related Data Home Medications Medication Instructions Recorded Confirmed Olmesartan [Benicar] 20 mg PO DAILY 06/11/20 06/10/23 Triamterene/Hydrochlorothiazid 1 tab PO DAILY 06/11/20 06/10/23 [Triamterene-Hctz 37.5-25 mg Tb] Levothyroxine Sodium [Synthroid] 100 mcg PO DAILY 09/10/21 06/10/23 Cholecalciferol [Vitamin D3 (25 50 mcg PO DAILY 09/25/22 06/10/23 Mcg = 1000 Iu)] Omeprazole 20 mg PO BID 11/13/22 06/10/23 Triamcinolone 0.1% Cream [Kenalog 1 applicatio TOPICAL BID 06/10/23 06/10/23 0.1% Cream] Previous Rx's Medication Instructions Recorded Meloxicam [Mobic] 15 mg PO DAILY PRN #30 tab 11/09/23 methocarbamoL [Robaxin-750] 1,500 mg PO TID PRN #30 tab 11/09/23 Allergies Allergy/AdvReac Type Severity Reaction Status Date / Time mold Allergy Mild sinus Verified 11/09/23 13:12 problems prednisone Allergy Swelling Verified 11/09/23 13:12 dander Allergy watery, Uncoded 11/09/23 13:12 itchy eyes dust Allergy sinus Uncoded 11/09/23 13:12 problems Review of Systems ROS Statement: Those systems with pertinent positive or pertinent negative responses have been documented in the HPI. ROS Other: All systems not noted in ROS Statement are negative. Past Medical History Past Medical History: Asthma, GERD/Reflux, Hyperlipidemia, Hypertension, Sleep Apnea/CPAP/BIPAP, Thyroid Disorder Additional Past Medical History / Comment(s): Frequent stomach discomfort, Cpap at night History of Any Multi-Drug Resistant Organisms: None Reported Past Surgical History: Cholecystectomy, Orthopedic Surgery Additional Past Surgical History / Comment(s): left wrist surgery, nasal surgery, abcess removed from tonsils Past Anesthesia/Blood Transfusion Reactions: No Reported Reaction Additional Past Anesthesia/Blood Transfusion Reaction / Comment(s): Pt has never had a blood transfusion. Past Psychological History: Depression Smoking Status: Never smoker Past Alcohol Use History: Rare Past Drug Use History: None Reported - Past Family History Mother Additional Family Medical History / Comment(s): gall bladder removed Father Family Medical History: Coronary Artery Disease (CAD) Additional Family Medical History / Comment(s): General Exam Limitations: no limitations General appearance: alert, in no apparent distress Head exam: Present: atraumatic, normocephalic, normal inspection Respiratory exam: Present: normal lung sounds bilaterally. Absent: respiratory distress, wheezes, rales, rhonchi, stridor Cardiovascular Exam: Present: regular rate, normal rhythm, normal heart sounds. Absent: systolic murmur, diastolic murmur, rubs, gallop, clicks GI/Abdominal exam: Present: soft, tenderness (RLQ), normal bowel sounds. Absent: distended Neurological exam: Present: alert, oriented X3, CN II-XII intact Psychiatric exam: Present: normal affect, normal mood Skin exam: Present: warm, dry, intact, normal color. Absent: rash Course Vital Signs 11/09/23 13:09 Temperature 98.3 F Pulse Rate 78 Respiratory 18 Rate Blood Pressure 130/86 O2 Sat by Pulse 97 Oximetry Medical Decision Making - Medical Decision Making This is a 48 year old male who presents to the emergency department for abdominal pain. Was pt. sent in by a medical professional or institution? @ -No Did you speak to anyone other than the patient for history? @ -No Did you review nursing and triage notes? @ -Yes, and I agree, it is accurate with regards to the patient's symptoms. Were old charts reviewed? @ -CT scan of the abdomen and pelvis from 11/04/23 demonstrating no acute process. Differential Diagnosis? @ -Differential Abdominal Pain Men: Appendicitis, cholecystitis, diverticulosis, ischemic bowel, pancreatitis, hepatitis, UTI, gastroenteritis, AAA, incarcerated hernia, bowel obstruction, c onstipation, inflammatory bowel, hepatitis, peptic ulcer disease, splenic infarction, perforated viscus, testicular torsion, this is not meant to be an all-inclusive list EKG interpreted by me (3pts min.)? @ -Not obtained X-rays interpreted by me (1pt min.)? @ -Not obtained CT interpreted by me (1pt min.)? @ -CT scan of the abdomen and pelvis obtained. My interpretation identifies no evidence of a ureteral calculus. U/S interpreted by me (1pt. min.)? @ -Not obtained What testing was considered but not performed? (CT, X-rays, U/S, labs)? Why? @ -None What meds were considered but not given? Why? @ -None Did you discuss the management of the patient with other professionals? @ -No Did you reconcile home meds? @ -No Was smoking cessation discussed for >3mins.? @ -No Was critical care preformed (if so, how long)? @ -No Were there social determinants of health that impacted care today? How? (Homelessness, low income, unemployed, alcoholism, drug addiction, transportation, low edu. Level, literacy, decrease access to med. care, detention, rehab)? @ -No Was there de-escalation of care discussed even if they declined? (Discuss DNR or withdrawal of care, Hospice)? @ -No What co-morbidities impacted this encounter? (DM, HTN, Smoking, COPD, CAD, Cancer, CVA, Hep., AIDS, mental health diagnosis, sleep apnea, morbid obesity)? @ -None Was patient admitted / discharged? @ -Discharged. Lab work unremarkable. Urinalysis negative for signs of infection. CT scan of the abdomen and pelvis demonstrates a nonobstructing right renal calculus. There is no acute abdominal process. Appendix is normal. Symptoms may be musculoskeletal in nature. Prescription for Mobic and Robaxin provided with dosing instructions reviewed. Advised follow-up with his primary care provider for reevaluation. Patient discharged home in stable condition. Undiagnosed new problem with uncertain prognosis? @ -None Drug Therapy requiring intensive monitoring for toxicity (Heparin, Nitro, Insulin, Cardizem)? @ -None Were any procedures done? @ -None Diagnosis/symptom? @ -RLQ pain Acute, or Chronic, or Acute on Chronic? @ -Acute Uncomplicated (without systemic symptoms) or Complicated (systemic symptoms)? @ -Uncomplicated Side effects of treatment? @ -None Exacerbation, Progression, or Severe Exacerbation] @ -Not applicable Poses a threat to life or bodily function? @ -No Return precautions reviewed in depth, the patient is instructed to return to the emergency department with any new, worsening, or concerning symptoms. Patient verbalized understanding. This case was discussed in detail with the attending ED physician, Dr. Brown. Presentation, findings, and treatment plan discussed in detail as well. - Lab Data Result diagrams: 11/09/23 13:54 11/09/23 13:54 Lab Results 11/09/23 11/09/23 11/09/23 Range/Units 13:54 13:54 13:54 WBC 8.3 (3.8-10.6) k/uL RBC 4.81 (4.30-5.90) m/uL Hgb 14.5 (13.0-17.5) gm/dL Hct 40.8 (39.0-53.0) % MCV 84.7 (80.0-100.0) fL MCH 30.1 (25.0-35.0) pg MCHC 35.5 (31.0-37.0) g/dL RDW 12.8 (11.5-15.5) % Plt Count 271 (150-450) k/uL MPV 8.8 Neutrophils % 68 % Lymphocytes % 23 % Monocytes % 7 % Eosinophils % 1 % Basophils % 1 % Neutrophils # 5.6 (1.3-7.7) k/uL Lymphocytes # 1.9 (1.0-4.8) k/uL Monocytes # 0.5 (0-1.0) k/uL Eosinophils # 0.1 (0-0.7) k/uL Basophils # 0.1 (0-0.2) k/uL Hyperchromasia Slight Sodium 133 L (137-145) mmol/L Potassium 4.0 (3.5-5.1) mmol/L Chloride 102 (98-107) mmol/L Carbon Dioxide 22 (22-30) mmol/L Anion Gap 9 mmol/L BUN 15 (9-20) mg/dL Creatinine 0.93 (0.66-1.25) mg/dL Est GFR (CKD-EPI)AfAm >90 (>60 ml/min/1.73 sqM) Est GFR (CKD-EPI)NonAf >90 (>60 ml/min/1.73 sqM) Glucose 95 (74-99) mg/dL Plasma Lactic Acid Mukesh (0.7-2.0) mmol/L Calcium 9.4 (8.4-10.2) mg/dL Total Bilirubin 0.8 (0.2-1.3) mg/dL AST 43 (17-59) U/L ALT 34 (4-49) U/L Alkaline Phosphatase 76 (38-126) U/L Total Protein 6.9 (6.3-8.2) g/dL Albumin 4.4 (3.5-5.0) g/dL Amylase 58 (30-110) U/L Lipase 139 (23-300) U/L Urine Color Colorless Urine Appearance Clear (Clear) Urine pH 6.0 (5.0-8.0) Ur Specific [place] 1.007 (1.001-1.035) Urine Protein Negative (Negative) Urine Glucose (UA) Negative (Negative) Urine Ketones Negative (Negative) Urine Blood Negative (Negative) Urine Nitrite Negative (Negative) Urine Bilirubin Negative (Negative) Urine Urobilinogen <2.0 (<2.0) mg/dL Ur Leukocyte Esterase Negative (Negative) 11/09/23 Range/Units 13:54 WBC (3.8-10.6) k/uL RBC (4.30-5.90) m/uL Hgb (13.0-17.5) gm/dL Hct (39.0-53.0) % MCV (80.0-100.0) fL MCH (25.0-35.0) pg MCHC (31.0-37.0) g/dL RDW (11.5-15.5) % Plt Count (150-450) k/uL MPV Neutrophils % % Lymphocytes % % Monocytes % % Eosinophils % % Basophils % % Neutrophils # (1.3-7.7) k/uL Lymphocytes # (1.0-4.8) k/uL Monocytes # (0-1.0) k/uL Eosinophils # (0-0.7) k/uL Basophils # (0-0.2) k/uL Hyperchromasia Sodium (137-145) mmol/L Potassium (3.5-5.1) mmol/L Chloride (98-107) mmol/L Carbon Dioxide (22-30) mmol/L Anion Gap mmol/L BUN (9-20) mg/dL Creatinine (0.66-1.25) mg/dL Est GFR (CKD-EPI)AfAm (>60 ml/min/1.73 sqM) Est GFR (CKD-EPI)NonAf (>60 ml/min/1.73 sqM) Glucose (74-99) mg/dL Plasma Lactic Acid Mukesh 0.9 (0.7-2.0) mmol/L Calcium (8.4-10.2) mg/dL Total Bilirubin (0.2-1.3) mg/dL AST (17-59) U/L ALT (4-49) U/L Alkaline Phosphatase (38-126) U/L Total Protein (6.3-8.2) g/dL Albumin (3.5-5.0) g/dL Amylase (30-110) U/L Lipase (23-300) U/L Urine Color Urine Appearance (Clear) Urine pH (5.0-8.0) Ur Specific [place] (1.001-1.035) Urine Protein (Negative) Urine Glucose (UA) (Negative) Urine Ketones (Negative) Urine Blood (Negative) Urine Nitrite (Negative) Urine Bilirubin (Negative) Urine Urobilinogen (<2.0) mg/dL Ur Leukocyte Esterase (Negative) - Radiology Data Radiology results: report reviewed, image reviewed Disposition Clinical Impression: Right lower quadrant abdominal pain Disposition: HOME SELF-CARE Instructions (If sedation given, give patient instructions): Groin Strain (ED), Abdominal Pain (ED) Additional Instructions: Return to the emergency department with any new, worsening, or concerning symptoms. Take the Mobic once daily for pain relief. If you choose to take this, do not take any other anti-inflammatories such as ibuprofen, take one or the other. You may take this with Tylenol. Take the Robaxin as 1 to 2 tablets up to 3-4 times daily. Be aware that this may make you drowsy. Follow up with your primary care provider in 1-2 days. Prescriptions: Meloxicam [Mobic] 15 mg PO DAILY PRN #30 tab PRN Reason: Pain methocarbamoL [Robaxin-750] 1,500 mg PO TID PRN #30 tab PRN Reason: Pain Is patient prescribed a controlled substance at d/c from ED?: No Referrals: Gerald Tejada DO [Primary Care Provider] - 1-2 days Time of Disposition: 15:40
[2023-11-09 14:14] LABS: Basophils # (A) 0.1 k/uL (0-0.2); Basophils % (A) 1 %; Eosinophils # (A) 0.1 k/uL (0-0.7); Eosinophils % (A) 1 %; HCT 40.8 % (39.0-53.0); HGB 14.5 gm/dL (13.0-17.5); Hyperchromasia Slight; Lymphocytes # (A) 1.9 k/uL (1.0-4.8); Lymphocytes % (A) 23 %; MCH 30.1 pg (25.0-35.0); MCHC 35.5 g/dL (31.0-37.0); MCV 84.7 fL (80.0-100.0); Mean Platelet Volume 8.8; Monocytes # (A) 0.5 k/uL (0-1.0); Monocytes % (A) 7 %; Neutrophils # (A) 5.6 k/uL (1.3-7.7); Neutrophils % (A) 68 %; Platelet Count 271 k/uL (150-450); RBC 4.81 m/uL (4.30-5.90); RDW 12.8 % (11.5-15.5); WBC 8.3 k/uL (3.8-10.6)
[2023-11-09 14:28] LABS: ALT 34 U/L (4-49); AST 43 U/L (17-59); African American GFR (CKD) >90 (>60 ml/min/1.73 sqM); Albumin 4.4 g/dL (3.5-5.0); Alkaline Phosphatase 76 U/L (38-126); Amylase 58 U/L (30-110); Anion Gap 9 mmol/L; Blood Urea Nitrogen 15 mg/dL (9-20); Calcium 9.4 mg/dL (8.4-10.2); Carbon Dioxide 22 mmol/L (22-30); Chloride 102 mmol/L (98-107); Glucose 95 mg/dL (74-99); Lipase 139 U/L (23-300); Non-African American GFR(CKD) >90 (>60 ml/min/1.73 sqM); Sodium 133 mmol/L (137-145); Total Bilirubin 0.8 mg/dL (0.2-1.3); Total Protein 6.9 g/dL (6.3-8.2)
--- NOTE | 2023-11-09 14:47 | CT ---
EXAMINATION TYPE: CT abdomen pelvis w con CT DLP: 1701.9 mGycm, Automated exposure control for dose reduction was used. DATE OF EXAM: 11/09/2023 2:21 PM COMPARISON: 11/04/2023 CLINICAL INDICATION:Male, 48 years old with history of RLQ pain; Abdominal pain. RLQ TECHNIQUE: Axial CT abdomen pelvis w con;Sagittal and coronal reformats were created on a separate w orkstation. Contrast used:100 ml mL of Isovue 370 with IV Contrast, (none if empty) Oral contrast used: without Oral Contrast (none if empty) FINDINGS: r LOWER CHEST: Unremarkable ABDOMEN LIVER: Unremarkable GALLBLADDER AND BILE DUCTS: Gallbladder is surgically absent. PANCREAS: Unremarkable. SPLEEN: Unremarkable. ADRENAL GLANDS: Unremarkable. KIDNEYS AND URETERS: Nonobstructing right renal calculus measuring up to 3 mm. No left renal calculus . No obstructive uropathy. PELVIS BLADDER: Unremarkable REPRODUCTIVE: Unremarkable. ABDOMEN & PELVIS STOMACH AND BOWEL: No evidence of bowel obstruction. PERITONEUM/RETROPERITONEUM: No evidence of pneumoperitoneum or free fluid. VASCULATURE: No evidence of aortic aneurysm. MUSCULOSKELETAL: No acute osseous abnormalities LYMPH NODES: No gross evidence for lymphadenopathy. SOFT TISSUE/ABDOMINAL WALL: Small fat-containing inguinal hernia. Tiny fat-containing buccal hernia. IMPRESSION: 1. No significant change from 11/04/2023. No evidence for acute abdominal process. 2. No evidence for obstructive uropathy. Nonobstructing right renal calculus. 3. The appendix is normal.
[2023-11-09 15:26] LABS: Appearance,Urine Clear (Clear); Bilirubin,Urine Negative (Negative); Blood,Urine Negative (Negative); Color,Urine Colorless; Glucose,Urine (UA) Negative (Negative); Ketones,Urine Negative (Negative); Leukocyte Esterase,Urine Negative (Negative); Nitrite,Urine Negative (Negative); Protein,Urine Negative (Negative); Specific Gravity,Urine 1.007 (1.001-1.035); Urobilinogen,Urine <2.0 mg/dL (<2.0)
[2023-11-09] MEDS: traMADol 50 MG STARTER PACK 3 TAB BTL PO STA (15:53)
== END 2023-11-09 15:56 | disposition home or self-care (01) ==
LOC: EC 13:07
DX: N20.0 Calculus of kidney (principal); K40.90 Unilateral inguinal hernia, without obstruction or gangrene, not specified as recurrent; Z88.8 Allergy status to other drugs, medicaments and biological substances
CPT/HCPCS: 36415; 80053; 82150; 83605; 83690; 85025; 81003; 74177; 99284; Q9967

== ENCOUNTER 2024-01-14 06:33 | Emergency (ER) | payer OTHER ==
--- NOTE | 2024-01-14 07:55 | ED ---
Abdominal Pain HPI - General Chief Complaint: Abdominal Pain Stated Complaint: ABD Pain, Back Pain Time Seen by Provider: 01/14/24 07:53 Source: patient, RN notes reviewed Mode of arrival: ambulatory - History of Present Illness Initial Comments: 48-year-old male presented to the ER with a chief complaint of left upper quadrant abdominal pain. Patient states has been ongoing for the past 3 days. He does report recently he lost something around the house and was moving furni ture and doing a lot of twisting which may have exacerbated this pain. He was seen at the chiropractor and told it was possibly an oblique muscle issue. He reports it as an intermittent sharp pain increases with motion. He denies any pain to palpation. He does report a history of kidney stones on the right. He denies any urinary complaints, constipation, diarrhea, history of diverticulitis, fevers, chills, nausea, vomiting, chest pain or shortness of breath. - Related Data Home Medications Medication Instructions Recorded Confirmed Olmesartan [Benicar] 20 mg PO DAILY 06/11/20 06/10/23 Triamterene/Hydrochlorothiazid 1 tab PO DAILY 06/11/20 06/10/23 [Triamterene-Hctz 37.5-25 mg Tb] Levothyroxine Sodium [Synthroid] 100 mcg PO DAILY 09/10/21 06/10/23 Cholecalciferol [Vitamin D3 (25 50 mcg PO DAILY 09/25/22 06/10/23 Mcg = 1000 Iu)] Omeprazole 20 mg PO BID 11/13/22 06/10/23 Triamcinolone 0.1% Cream [Kenalog 1 applicatio TOPICAL BID 06/10/23 06/10/23 0.1% Cream] Previous Rx's Medication Instructions Recorded Meloxicam [Mobic] 15 mg PO DAILY PRN #30 tab 11/09/23 methocarbamoL [Robaxin-750] 1,500 mg PO TID PRN #30 tab 11/09/23 Allergies Allergy/AdvReac Type Severity Reaction Status Date / Time mold Allergy Mild sinus Verified 01/14/24 06:40 problems prednisone Allergy Swelling Verified 01/14/24 06:40 dander Allergy watery, Uncoded 01/14/24 06:40 itchy eyes dust Allergy sinus Uncoded 01/14/24 06:40 problems Review of Systems ROS Statement: Those systems with pertinent positive or pertinent negative responses have been documented in the HPI. ROS Other: All systems not noted in ROS Statement are negative. Past Medical History Past Medical History: Asthma, GERD/Reflux, Hyperlipidemia, Hypertension, Sleep Apnea/CPAP/BIPAP, Thyroid Disorder Additional Past Medical History / Comment(s): Frequent stomach discomfort, Cpap at night History of Any Multi-Drug Resistant Organisms: None Reported Past Surgical History: Cholecystectomy, Orthopedic Surgery Additional Past Surgical History / Comment(s): left wrist surgery, nasal surgery, abcess removed from tonsils Past Anesthesia/Blood Transfusion Reactions: No Reported Reaction Additional Past Anesthesia/Blood Transfusion Reaction / Comment(s): Pt has never had a blood transfusion. Past Psychological History: Depression Smoking Status: Never smoker Past Alcohol Use History: Rare Past Drug Use History: None Reported - Past Family History Mother Additional Family Medical History / Comment(s): gall bladder removed Father Family Medical History: Coronary Artery Disease (CAD) Additional Family Medical History / Comment(s): General Exam Limitations: no limitations General appearance: alert, in no apparent distress Respiratory exam: Present: normal lung sounds bilaterally. Absent: respiratory distress, wheezes, rales, rhonchi, stridor Cardiovascular Exam: Present: regular rate, normal rhythm, normal heart sounds. Absent: systolic murmur, diastolic murmur, rubs, gallop, clicks GI/Abdominal exam: Present: soft, normal bowel sounds. Absent: distended, tenderness, guarding, rebound, rigid Back exam: Present: normal inspection Skin exam: Present: warm, dry, intact, normal color. Absent: rash Course Vital Signs 01/14/24 01/14/24 01/14/24 06:37 08:20 10:20 Temperature 97.7 F 98.1 F Pulse Rate 73 60 63 Respiratory 18 16 18 Rate Blood Pressure 143/77 123/77 121/76 O2 Sat by Pulse 99 97 99 Oximetry Medical Decision Making - Medical Decision Making Was pt. sent in by a medical professional or institution (, PA, MANAGER EMERGENCY DEPARTMENT, urgent care, hospital, or senior care...) When possible be specific @ -No Did you speak to anyone other than the patient for history (EMS, parent, family, police, friend...)? What history was obtained from this source @ -No Did you review nursing and triage notes (agree or disagree)? Why? @ -I reviewed and agree with nursing and triage notes Were old charts reviewed (outside hosp., previous admission, EMS record, old EKG, old radiological studies, urgent care reports/EKG's, senior care records)? Report findings @ -No old charts were reviewed Differential Diagnosis (chest pain, altered mental status, abdominal pain women, abdominal pain men, vaginal bleeding, weakness, fever, dyspnea, syncope, headache, dizziness, GI bleed, back pain, seizure, CVA, palpatations, mental health, musculoskeletal)? @ -Differential Abdominal Pain Men: Appendicitis, cholecystitis, diverticulosis, ischemic bowel, pancreatitis, hepatitis, UTI, gastroenteritis, AAA, incarcerated hernia, bowel obstruction, constipation, inflammatory bowel, hepatitis, peptic ulcer disease, splenic infarction, perforated viscus, testicular torsion, this is not meant to be an all-inclusive list EKG interpreted by me (3pts min.). @ -None X-rays interpreted by me (1pt min.). @ -None done CT interpreted by me (1pt min.). @ -None done U/S interpreted by me (1pt. min.). @ -None done What testing was considered but not performed or refused? (CT, X-rays, U/S, labs )? Why? @ -Imaging considered but not obtained. Laboratory studies will be obtained prior. Patient is in agrees with plan of care. What meds were considered but not given or refused? Why? @ -None Did you discuss the management of the patient with other professionals (professionals i.e. Dr., PA, MANAGER EMERGENCY DEPARTMENT, lab, RT, psych nurse, web content & social media manager, beef cattle specialist, teacher, school services officer, showcase maker)? Give summary @ -No Was smoking cessation discussed for >3mins.? @ -No Was critical care preformed (if so, how long)? @ -No Were there social determinants of health that impacted care today? How? (Homelessness, low income, unemployed, alcoholism, drug addiction, transportation, low edu. Level, literacy, decrease access to med. care, fdc, rehab)? @ -No Was there de-escalation of care discussed even if they declined (Discuss DNR or withdrawal of care, Hospice)? DNR status @ -No What co-morbidities impacted this encounter? (DM, HTN, Smoking, COPD, CAD, Cancer, CVA, ARF, Chemo, Hep., AIDS, mental health diagnosis, sleep apnea, morbid obesity)? @ -None Was patient admitted / discharged? Hospital course, mention meds given and route, prescriptions, significant lab abnormalities, going to OR and other pertinent info. @ -Discharge. 48-year-old male presented to ER with a chief complaint of left upper quadrant abdominal pain. History and physical exam completed. Vitals stable. Patient in no signs of acute distress and nontoxic-appearing. Abdominal exam unremarkable. Normal bowel sounds. No CVA tenderness. No rebound or guarding. Laboratory studies and urine analysis obtained unremarkab le. Patient received IV fluids and Toradol for pain control in the ER, with improvement. Upon reevaluation,. Resting comfortably in exam room in no signs of acute distress. Results discussed with patient, all questions answered. Advise close follow-up with PCP. Strict return parameters discussed. Patient discharged in stable condition. Patient verbally expressed understanding and agreement care plan. Case discussed with ED attending, Dr. Casper. Undiagnosed new problem with uncertain prognosis? @ -No Drug Therapy requiring intensive monitoring for toxicity (Heparin, Nitro, Insulin, Cardizem)? @ -No Were any procedures done? @ -No Diagnosis/symptom? @ -Abdominal pain Acute, or Chronic, or Acute on Chronic? @ -Acute Uncomplicated (without systemic symptoms) or Complicated (systemic symptoms)? @ -Uncomplicated Side effects of treatment? @ -No Exacerbation, Progression, or Severe Exacerbation? @ -No Poses a threat to life or bodily function? How? (Chest pain, USA, [place], pneumonia, PE, COPD, DKA, ARF, appy, cholecystitis, CVA, Diverticulitis, Homicidal, Suicidal, threat to staff... and all critical care pts) @ -No - Lab Data Result diagrams: 01/14/24 07:13 01/14/24 07:13 Lab Results 01/14/24 01/14/24 01/14/24 Range/Units 07:13 07:13 07:13 WBC 6.0 (3.8-10.6) k/uL RBC 5.13 (4.30-5.90) m/uL Hgb 15.2 (13.0-17.5) gm/dL Hct 44.0 (39.0-53.0) % MCV 85.7 (80.0-100.0) fL MCH 29.6 (25.0-35.0) pg MCHC 34.5 (31.0-37.0) g/dL RDW 12.3 (11.5-15.5) % Plt Count 312 (150-450) k/uL MPV 8.1 Neutrophils % 64 % Lymphocytes % 27 % Monocytes % 5 % Eosinophils % 1 % Basophils % 1 % Neutrophils # 3.9 (1.3-7.7) k/uL Lymphocytes # 1.6 (1.0-4.8) k/uL Monocytes # 0.3 (0-1.0) k/uL Eosinophils # 0.1 (0-0.7) k/uL Basophils # 0.1 (0-0.2) k/uL Sodium 138 (137-145) mmol/L Potassium 3.9 (3.5-5.1) mmol/L Chloride 102 (98-107) mmol/L Carbon Dioxide 26 (22-30) mmol/L Anion Gap 10 mmol/L BUN 14 (9-20) mg/dL Creatinine 1.09 (0.66-1.25) mg/dL Est GFR (CKD-EPI)AfAm >90 (>60 ml/min/1.73 sqM) Est GFR (CKD-EPI)NonAf 79 (>60 ml/min/1.73 sqM) Glucose 111 H (74-99) mg/dL Plasma Lactic Acid Mukesh (0.7-2.0) mmol/L Calcium 9.9 (8.4-10.2) mg/dL Total Bilirubin 0.9 (0.2-1.3) mg/dL AST 47 (17-59) U/L ALT 36 (4-49) U/L Alkaline Phosphatase 71 (38-126) U/L Total Protein 7.6 (6.3-8.2) g/dL Albumin 4.9 (3.5-5.0) g/dL Amylase 52 (30-110) U/L Lipase 117 (23-300) U/L Urine Color Light Yellow Urine Appearance Clear (Clear) Urine pH 5.5 (5.0-8.0) Ur Specific [place] 1.015 (1.001-1.035) Urine Protein Negative (Negative) Urine Glucose (UA) Negative (Negative) Urine Ketones Negative (Negative) Urine Blood Negative (Negative) Urine Nitrite Negative (Negative) Urine Bilirubin Negative (Negative) Urine Urobilinogen <2.0 (<2.0) mg/dL Ur Leukocyte Esterase Negative (Negative) 01/14/24 Range/Units 07:13 WBC (3.8-10.6) k/uL RBC (4.30-5.90) m/uL Hgb (13.0-17.5) gm/dL Hct (39.0-53.0) % MCV (80.0-100.0) fL MCH (25.0-35.0) pg MCHC (31.0-37.0) g/dL RDW (11.5-15.5) % Plt Count (150-450) k/uL MPV Neutrophils % % Lymphocytes % % Monocytes % % Eosinophils % % Basophils % % Neutrophils # (1.3-7.7) k/uL Lymphocytes # (1.0-4.8) k/uL Monocytes # (0-1.0) k/uL Eosinophils # (0-0.7) k/uL Basophils # (0-0.2) k/uL Sodium (137-145) mmol/L Potassium (3.5-5.1) mmol/L Chloride (98-107) mmol/L Carbon Dioxide (22-30) mmol/L Anion Gap mmol/L BUN (9-20) mg/dL Creatinine (0.66-1.25) mg/dL Est GFR (CKD-EPI)AfAm (>60 ml/min/1.73 sqM) Est GFR (CKD-EPI)NonAf (>60 ml/min/1.73 sqM) Glucose (74-99) mg/dL Plasma Lactic Acid Mukesh 1.0 (0.7-2.0) mmol/L Calcium (8.4-10.2) mg/dL Total Bilirubin (0.2-1.3) mg/dL AST (17-59) U/L ALT (4-49) U/L Alkaline Phosphatase (38-126) U/L Total Protein (6.3-8.2) g/dL Albumin (3.5-5.0) g/dL Amylase (30-110) U/L Lipase (23-300) U/L Urine Color Urine Appearance (Clear) Urine pH (5.0-8.0) Ur Specific [place] (1.001-1.035) Urine Protein (Negative) Urine Glucose (UA) (Negative) Urine Ketones (Negative) Urine Blood (Negative) Urine Nitrite (Negative) Urine Bilirubin (Negative) Urine Urobilinogen (<2.0) mg/dL Ur Leukocyte Esterase (Negative) Disposition Clinical Impression: Abdominal pain Disposition: HOME SELF-CARE Condition: Stable Instructions (If sedation given, give patient instructions): Abdominal Pain (ED) Additional Instructions: Follow-up with PCP. Return to the ER for any new or worsening symptoms. Is patient prescribed a controlled substance at d/c from ED?: No Referrals: Gerald Tejada DO [Primary Care Provider] - 1-2 days Time of Disposition: 09:23
[2024-01-14] MEDS: SODIUM CHLORIDE 0.9% 1,000 ML IV STA (08:02)
[2024-01-14] MEDS: KETOROLAC 15 MG/ML 1 ML VIAL IVP STA (08:02)
[2024-01-14 08:31] LABS: Appearance,Urine Clear (Clear); Basophils # (A) 0.1 k/uL (0-0.2); Basophils % (A) 1 %; Bilirubin,Urine Negative (Negative); Blood,Urine Negative (Negative); Color,Urine Light Yellow; Eosinophils # (A) 0.1 k/uL (0-0.7); Eosinophils % (A) 1 %; Glucose,Urine (UA) Negative (Negative); HGB 15.2 gm/dL (13.0-17.5); Ketones,Urine Negative (Negative); Leukocyte Esterase,Urine Negative (Negative); Lymphocytes # (A) 1.6 k/uL (1.0-4.8); Lymphocytes % (A) 27 %; MCH 29.6 pg (25.0-35.0); MCHC 34.5 g/dL (31.0-37.0); MCV 85.7 fL (80.0-100.0); Mean Platelet Volume 8.1; Monocytes # (A) 0.3 k/uL (0-1.0); Monocytes % (A) 5 %; Neutrophils # (A) 3.9 k/uL (1.3-7.7); Neutrophils % (A) 64 %; Nitrite,Urine Negative (Negative); PH, Urine 5.5 (5.0-8.0); Platelet Count 312 k/uL (150-450); Protein,Urine Negative (Negative); RBC 5.13 m/uL (4.30-5.90); RDW 12.3 % (11.5-15.5); Specific Gravity,Urine 1.015 (1.001-1.035); Urobilinogen,Urine <2.0 mg/dL (<2.0)
[2024-01-14 09:06] LABS: ALT 36 U/L (4-49); AST 47 U/L (17-59); African American GFR (CKD) >90 (>60 ml/min/1.73 sqM); Albumin 4.9 g/dL (3.5-5.0); Alkaline Phosphatase 71 U/L (38-126); Amylase 52 U/L (30-110); Anion Gap 10 mmol/L; Blood Urea Nitrogen 14 mg/dL (9-20); Calcium 9.9 mg/dL (8.4-10.2); Carbon Dioxide 26 mmol/L (22-30); Chloride 102 mmol/L (98-107); Glucose 111 mg/dL (74-99); Lipase 117 U/L (23-300); Non-African American GFR(CKD) 79 (>60 ml/min/1.73 sqM); Potassium 3.9 mmol/L (3.5-5.1); Sodium 138 mmol/L (137-145); Total Bilirubin 0.9 mg/dL (0.2-1.3); Total Protein 7.6 g/dL (6.3-8.2)
[2024-01-14 10:22] VITALS: BP 121/76; PULSE 63; RESP 18; TEMP 98.1
== END 2024-01-14 10:22 | disposition home or self-care (01) ==
LOC: EC 06:33
DX: R10.12 Left upper quadrant pain (principal); Z91.018 Allergy to other foods; Z88.8 Allergy status to other drugs, medicaments and biological substances
CPT/HCPCS: 96361 ×3; 96374 ×2; 99284 ×2; 36415; 80053; 82150; 83605; 83690; 85025; 81003; J1885

== ENCOUNTER 2024-02-26 08:14 | Emergency (ER) | payer OTHER ==
[2024-02-26 08:18] VITALS: RESP 18; TEMP 98
--- NOTE | 2024-02-26 08:59 | ED ---
General Adult HPI - General Chief complaint: Back Pain/Injury Stated complaint: Back Pain Time Seen by Provider: 02/26/24 08:19 Source: patient, RN notes reviewed, old records reviewed Mode of arrival: ambulatory Limitations: no limitations - History of Present Illness Initial comments: 48-year-old male presenting with right upper back pain in the lateral rib cage. Pain began suddenly while the patient was sitting up in bed and coughed. He states he has had similar episode in the past which was related to rib fracture. He denies central chest pain. Denies abdominal pain. He has pain localized to the right lateral chest wall. - Related Data Home Medications Medication Instructions Recorded Confirmed Olmesartan [Benicar] 20 mg PO DAILY 06/11/20 06/10/23 Triamterene/Hydrochlorothiazid 1 tab PO DAILY 06/11/20 06/10/23 [Triamterene-Hctz 37.5-25 mg Tb] Levothyroxine Sodium [Synthroid] 100 mcg PO DAILY 09/10/21 06/10/23 Cholecalciferol [Vitamin D3 (25 50 mcg PO DAILY 09/25/22 06/10/23 Mcg = 1000 Iu)] Omeprazole 20 mg PO BID 11/13/22 06/10/23 Triamcinolone 0.1% Cream [Kenalog 1 applicatio TOPICAL BID 06/10/23 06/10/23 0.1% Cream] Previous Rx's Medication Instructions Recorded Meloxicam [Mobic] 15 mg PO DAILY PRN #30 tab 11/09/23 methocarbamoL [Robaxin-750] 1,500 mg PO TID PRN #30 tab 11/09/23 Allergies Allergy/AdvReac Type Severity Reaction Status Date / Time mold Allergy Mild sinus Verified 02/26/24 08:17 problems prednisone Allergy Swelling Verified 02/26/24 08:17 dander Allergy watery, Uncoded 02/26/24 08:17 itchy eyes dust Allergy sinus Uncoded 02/26/24 08:17 problems Review of Systems ROS Statement: Those systems with pertinent positive or pertinent negative responses have been documented in the HPI. ROS Other: All systems not noted in ROS Statement are negative. Past Medical History Past Medical History: Asthma, GERD/Reflux, Hyperlipidemia, Hypertension, Sleep Apnea/CPAP/BIPAP, Thyroid Disorder Additional Past Medical History / Comment(s): Frequent stomach discomfort, Cpap at night History of Any Multi-Drug Resistant Organisms: None Reported Past Surgical History: Cholecystectomy, Orthopedic Surgery Additional Past Surgical History / Comment(s): left wrist surgery, nasal surgery, abcess removed from tonsils Past Anesthesia/Blood Transfusion Reactions: No Reported Reaction Additional Past Anesthesia/Blood Transfusion Reaction / Comment(s): Pt has never had a blood transfusion. Past Psychological History: Depression Smoking Status: Never smoker Past Alcohol Use History: Rare Past Drug Use History: None Reported - Past Family History Mother Additional Family Medical History / Comment(s): gall bladder removed Father Family Medical History: Coronary Artery Disease (CAD) Additional Family Medical History / Comment(s): General Exam Limitations: no limitations General appearance: alert, in no apparent distress Head exam: Present: atraumatic, normocephalic Eye exam: Present: normal appearance, PERRL ENT exam: Present: normal exam Neck exam: Present: normal inspection. Absent: tenderness, meningismus Respiratory exam: Present: normal lung sounds bilaterally, chest wall tender ness. Absent: respiratory distress, wheezes Cardiovascular Exam: Present: regular rate, normal rhythm GI/Abdominal exam: Present: soft. Absent: distended, guarding Extremities exam: Present: normal inspection, normal capillary refill. Absent: pedal edema Neurological exam: Present: alert, oriented X3 Psychiatric exam: Present: normal affect, normal mood Skin exam: Present: warm, dry, intact, normal color. Absent: cyanosis, diaphoretic Course Vital Signs 02/26/24 08:15 Temperature 98 F Pulse Rate 76 Respiratory 18 Rate Blood Pressure 136/86 O2 Sat by Pulse 98 Oximetry Medical Decision Making - Medical Decision Making Was pt. sent in by a medical professional or institution (, PA, BUILDING CUSTODIAN, urgent care, hospital, or retirement...) When possible be specific @ -No Did you speak to anyone other than the patient for history (EMS, parent, family, police, friend...)? What history was obtained from this source @ -No Did you review nursing and triage notes (agree or disagree)? Why? @ -I reviewed and agree with nursing and triage notes Were old charts reviewed (outside hosp., previous admission, EMS record, old EKG , old radiological studies, urgent care reports/EKG's, retirement records)? Report findings @ -No old charts were reviewed Differential Diagnosis: Pneumothorax, rib fracture, pneumonia, chest wall strain EKG interpreted by me (3pts min.). @ -As above X-rays interpreted by me (1pt min.). @ -Rib films and PA chest x-ray obtained, no pneumothorax, deformity of the right ninth posterior lateral rib CT interpreted by me (1pt min.). @ -None done U/S interpreted by me (1pt. min.). @ -None done What testing was considered but not performed or refused? (CT, X-rays, U/S, labs)? Why? @ -None What meds were considered but not given or refused? Why? @ -None Did you discuss the management of the patient with other professionals (professionals i.e. , PA, BUILDING CUSTODIAN, lab, RT, psych nurse, social worker palliative care, investigator utility bill complaints, teacher, data officer, case management associate)? Give summary @ -No Was smoking cessation discussed for >3mins.? @ -No Was critical care preformed (if so, how long)? @ -No Were there social determinants of health that impacted care today? How? (Homelessness, low income, unemployed, alcoholism, drug addiction, transportation, low edu. Level, literacy, decrease access to med. care, long-term, rehab)? @ -No Was there de-escalation of care discussed even if they declined (Discuss DNR or withdrawal of care, Hospice)? DNR status @ -No What co-morbidities impacted this encounter? (DM, HTN, Smoking, COPD, CAD, Cancer, CVA, ARF, Chemo, Hep., AIDS, mental health diagnosis, sleep apnea, morbid obesity)? @ -None Was patient admitted / discharged? Hospital course, mention meds given and route, prescriptions, significant lab abnormalities, going to OR and other pertinent info. @ -55-year-old male with sudden onset right lateral chest wall pain. Pain consistent with either rib fracture or intercostal muscle strain. Vital signs are stable. Patient well-appearing. Deformity of the right ninth rib possible acute fracture.. Patient will take [id number] Tylenol Motrin for pain. Undiagnosed new problem with uncertain prognosis? @ -No Drug Therapy requiring intensive monitoring for toxicity (Heparin, Nitro, Insulin, Cardizem)? @ -No Were any procedures done? @ -No Diagnosis/symptom? @ -Rib fracture Acute, or Chronic, or Acute on Chronic? @ -Acute Uncomplicated (without systemic symptoms) or Complicated (systemic symptoms)? @ -Default Side effects of treatment? @ -No Exacerbation, Progression, or Severe Exacerbation? @ -No Poses a threat to life or bodily function? How? (Chest pain, [place], [place], pneumonia, PE, COPD, DKA, ARF, appy, cholecystitis, CVA, Diverticulitis, Homicidal, Suicidal, threat to staff... and all critical care pts) @ -No Disposition Clinical Impression: Rib fracture Disposition: HOME SELF-CARE Condition: Good Instructions (If sedation given, give patient instructions): Chest Wall Pain (ED), Rib Fracture (ED) Is patient prescribed a controlled substance at d/c from ED?: No Referrals: Gerald Tejada DO [Primary Care Provider] - 1-2 days Time of Disposition: 08:58
--- NOTE | 2024-02-26 09:12 | XR ---
EXAMINATION TYPE: XR ribs RT w pa chest xray DATE OF EXAM: 02/26/2024 COMPARISON: 06/10/2023 TECHNIQUE: PA and lateral views submitted. HISTORY: Pain FINDINGS: The lungs are clear and there is no pneumothorax, pleural effusion, or focal pneumonia. Heart size normal and no overt failure. Punctate calcifications in the right upper abdomen may represent tiny renal calculi. There is a deformity of the posterior-lateral right ninth rib IMPRESSION: 1. Deformity posterior lateral right ninth rib compatible with fracture. Suspect is more likely tremayne te but should be correlated with point tenderness for confirmation.
[2024-02-26 09:37] VITALS: BP 129/82; PULSE 71
== END 2024-02-26 09:40 | disposition home or self-care (01) ==
LOC: EC 08:14
CPT/HCPCS: 99283

== ENCOUNTER 2024-04-12 15:22 | Emergency (ER) | payer OTHER ==
--- NOTE | 2024-04-12 15:50 | ED ---
Back Pain HPI - General Source: patient, RN notes reviewed - History of Present Illness MD Complaint: back pain, back injury Onset/Timin -: days(s) Place: home Severity scale (1-10): 5 Consistency: constant Improves With: other (Standing) Worsens With: sitting upright Context: while lifting Associated Symptoms: denies other symptoms Treatments Prior to Arrival: cold therapy, NSAIDS <Alex Kaye - Last Filed: 04/12/24 15:48> <Elise López - Last Filed: 04/12/24 18:47> - General Stated Complaint: lower back pain Time Seen by Provider: 04/12/24 15:33 - History of Present Illness Initial Comments: Quick note: This is a 48-year-old male presenting with lower back pain following dented lifting of the lawn more yesterday. Patient states pain worsens when sitting (5 out of 10) and improves when standing. Patient denies radiculopathy or paresthesia. Denies saddle paresthesia, urinary incontinence/retention. Endorses minimal relief with ibuprofen and cold compress. (Alxe Kaye) 48-year-old male presenting with chief complaint of lower back pain. Patient was lifting his lawnmower back into his truck when he stumbled backwards and then started having pain across the lower back. No loss of bowel or bladder control or saddle paresthesia. No radiculopathy. No urinary symptoms fevers or vomiting. He was taking ibuprofen and hot shower at home which did not help his symptoms (Elise López) - Related Data Home Medications Medication Instructions Recorded Confirmed Olmesartan [Benicar] 20 mg PO DAILY 06/11/20 06/10/23 Triamterene/Hydrochlorothiazid 1 tab PO DAILY 06/11/20 06/10/23 [Triamterene-Hctz 37.5-25 mg Tb] Levothyroxine Sodium [Synthroid] 100 mcg PO DAILY 09/10/21 06/10/23 Cholecalciferol [Vitamin D3 (25 50 mcg PO DAILY 09/25/22 06/10/23 Mcg = 1000 Iu)] Omeprazole 20 mg PO BID 11/13/22 06/10/23 Triamcinolone 0.1% Cream [Kenalog 1 applicatio TOPICAL BID 06/10/23 06/10/23 0.1% Cream] Previous Rx's Medication Instructions Recorded Meloxicam [Mobic] 15 mg PO DAILY PRN #30 tab 11/09/23 methocarbamoL [Robaxin-750] 1,500 mg PO TID PRN #30 tab 11/09/23 Cyclobenzaprine [Flexeril] 10 mg PO TID PRN #15 tab 04/12/24 Lidocaine 5% Patch [Lidoderm 5% 1 patch TOPICAL DAILY PRN #30 patch 04/12/24 Patch] Allergies Allergy/AdvReac Type Severity Reaction Status Date / Time mold Allergy Mild sinus Verified 04/12/24 16:17 problems prednisone Allergy Swelling Verified 04/12/24 16:17 dander Allergy watery, Uncoded 04/12/24 16:17 itchy eyes dust Allergy sinus Uncoded 04/12/24 16:17 problems Review of Systems ROS Other: All systems not noted in ROS Statement are negative. <Alex Kaye - Last Filed: 04/12/24 15:48> ROS Other: All systems not noted in ROS Statement are negative. <Elise López - Last Filed: 04/12/24 18:47> ROS Statement: Those systems with pertinent positive or pertinent negative responses have been documented in the HPI. Past Medical History Past Medical History: Asthma, GERD/Reflux, Hyperlipidemia, Hypertension, Sleep Apnea/CPAP/BIPAP, Thyroid Disorder Additional Past Medical History / Comment(s): Frequent stomach discomfort, Cpap at night History of Any Multi-Drug Resistant Organisms: None Reported Past Surgical History: Cholecystectomy, Orthopedic Surgery Additional Past Surgical History / Comment(s): left wrist surgery, nasal surgery, abcess removed from tonsils Past Anesthesia/Blood Transfusion Reactions: No Reported Reaction Additional Past Anesthesia/Blood Transfusion Reaction / Comment(s): Pt has never had a blood transfusion. Past Psychological History: Depression Smoking Status: Never smoker Past Alcohol Use History: Rare Past Drug Use History: None Reported - Past Family History Mother Additional Family Medical History / Comment(s): gall bladder removed Father Family Medical History: Coronary Artery Disease (CAD) Additional Family Medical History / Comment(s): <Alex Kaye - Last Filed: 04/12/24 15:48> General Exam <Alex Kaye - Last Filed: 04/12/24 15:48> Limitations: no limitations General appearance: alert, in no apparent distress Head exam: Present: atraumatic, normocephalic, normal inspection Eye exam: Present: normal appearance, EOMI Neck exam: Present: normal inspection. Absent: meningismus Respiratory exam: Absent: respiratory distress Cardiovascular Exam: Present: regular rate Extremities exam: Present: normal inspection Back exam: Present: normal inspection, tenderness Neurological exam: Present: alert, oriented X3 Psychiatric exam: Present: normal affect, normal mood Skin exam: Present: warm, dry <Elise López - Last Filed: 04/12/24 18:47> - General Exam Comments Initial Comments: Visual Physical Exam Vital signs reviewed General: Well-appearing, nontoxic, no acute distress. Head: Normocephalic, atraumatic Eyes: PERRLA, EOMI ENT: Airway patent Chest: Nonlabored breathing Skin: No visual rash, normal skin tone Neuro: Alert and oriented 3 Musculoskeletal: No gross abnormalities (Alex Kaye) Course Vital Signs 04/12/24 04/12/24 16:18 18:14 Temperature 98.4 F 98.4 F Pulse Rate 75 68 Respiratory 17 16 Rate Blood Pressure 145/88 155/82 O2 Sat by Pulse 99 97 Oximetry Medical Decision Making <Alex Kaye - Last Filed: 04/12/24 15:48> <Elise López - Last Filed: 04/12/24 18:47> - Medical Decision Making I completed the quick note portion of this chart signed PAULINE Hernandez (Alex Kaye) Was pt. sent in by a medical professional or institution ([facility] Ng, WINDER CONTORT OPERATOR, urgent care, hospital, or [facility]...) When possible be specific @ -No Did you speak to anyone other than the patient for history (EMS, parent, family, police, friend...)? What history was obtained from this source @ -No Did you review nursing and triage notes (agree or disagree)? Why? @ -I reviewed and agree with nursing and triage notes Were old charts reviewed (outside hosp., previous admission, EMS record, old EKG, old radiological studies, urgent care reports/EKG's, [facility] records)? Report findings @ -No old charts were reviewed Differential Diagnosis (chest pain, altered mental status, abdominal pain women, abdominal pain men, vaginal bleeding, weakness, fever, dyspnea, syncope, headache, dizziness, GI bleed, back pain, seizure, CVA, palpatations, mental health, musculoskeletal)? @ - [facility] Differential Back Pain: Strain, zoster, cauda equina syndrome, epidural abscess, vertebral osteomyelitis, discitis, fracture, subluxation, disc herniation, DJD, spinal stenosis, dissection, AAA, pancreatitis, peptic ulcer disease, pyelonephritis, kidney stone this is not meant to be an all-inclusive list. EKG interpreted by me (3pts min.). @ -As above X-rays interpreted by me (1pt min.). @ -X-ray shows no acute fracture. Mild multilevel disc degeneration CT interpreted by me (1pt min.). @ -None done U/S interpreted by me (1pt. min.). @ -None done What testing was considered but not performed or refused? (CT, X-rays, U/S, labs)? Why? @ -None What meds were considered but not given or refused? Why? @ -None Did you discuss the management of the patient with other professionals (professionals i.e. , PA, WINDER CONTORT OPERATOR, lab, RT, psych nurse, addiction social worker, laborer tin can, teacher, chief commercial officer, director case)? Give summary @ -No Was smoking cessation discussed for >3mins.? @ -No Was critical care preformed (if so, how long)? @ -No Were there social determinants of health that impacted care today? How? (Homelessness, low income, unemployed, alcoholism, drug addiction, transportation, low edu. Level, literacy, decrease access to med. care, half-way, rehab)? @ -No Was there de-escalation of care discussed even if they declined (Discuss DNR or withdrawal of care, Hospice)? DNR status @ -No What co-morbidities impacted this encounter? (DM, HTN, Smoking, COPD, CAD, Cancer, CVA, ARF, Chemo, Hep., AIDS, mental health diagnosis, sleep apnea, morbid obesity)? @ -None Was patient admitted / discharged? Hospital course, mention meds given and route, prescriptions, significant lab abnormalities, going to OR and other pertinent info. @ -48-year-old male presenting with chief complaint of lower back strain after lifting his lawnmower into his truck today. No red flag symptoms. X-ray negative for acute process. Does show degenerative disc disease. He is given pain medication and reports improvement on reassessment. Provided with lidocaine patches and muscle relaxers for home. He will follow-up with his PCP. Discharged. Follow-up with PCP. Report back to ER with any new or worsening symptoms. Discussed return parameters and answered all questions. Patient conveyed verbal understanding and agreed to the plan. I discussed this case in detail with my attending Dr. Marques Undiagnosed new problem with uncertain prognosis? @ -No Drug Therapy requiring intensive monitoring for toxicity (Heparin, Nitro, Insulin, Cardizem)? @ -No Were any procedures done? @ -No Diagnosis/symptom? @ -Lower back strain Acute, or Chronic, or Acute on Chronic? @ -Acute Uncomplicated (without systemic symptoms) or Complicated (systemic symptoms)? @ -Uncomplicated Side effects of treatment? @ -No Exacerbation, Progression, or Severe Exacerbation? @ -No Poses a threat to life or bodily function? How? (Chest pain, [place], [place], pneumonia, PE, COPD, DKA, ARF, appy, cholecystitis, CVA, Diverticulitis, Homicidal, Suicidal, threat to staff... and all critical care pts) @ -Unlikely (Elise López) Disposition <Alex Kaye - Last Filed: 04/12/24 15:48> Is patient prescribed a controlled substance at d/c from ED?: No Time of Disposition: 18:01 <Elise López - Last Filed: 04/12/24 18:47> Clinical Impression: Strain of lumbar region Disposition: HOME SELF-CARE Condition: Good Instructions (If sedation given, give patient instructions): Acute Low Back Pain (ED) Additional Instructions: Follow-up with PCP. Report back to ER with any new or worsening symptoms. Motrin and Tylenol as needed for pain control. Do not take cyclobenzaprine before driving or operating heavy machinery as it may cause drowsiness. Prescriptions: Cyclobenzaprine [Flexeril] 10 mg PO TID PRN #15 tab PRN Reason: Spasms Lidocaine 5% Patch [Lidoderm 5% Patch] 1 patch TOPICAL DAILY PRN #30 patch PRN Reason: Pain Referrals: Gerald Tejada DO [Primary Care Provider] - 1-2 days
[2024-04-12 16:22] VITALS: TEMP 98.4
[2024-04-12] MEDS: KETOROLAC 15 MG/ML 1 ML VIAL IM STA (16:26)
--- NOTE | 2024-04-12 17:19 | XR ---
EXAMINATION TYPE: XR lumbosacral spine min 4V DATE OF EXAM: 04/12/2024 4:40 PM CLINICAL INDICATION: Male, 48 years old with history of Lifting injury; [facility] COMPARISON: None TECHNIQUE: XR lumbosacral spine min 4V - Frontal, lateral , bilateral oblique and coned in L5-S1 late ral views of the spine. FINDINGS: No evidence of any acute osseous pathology. No evidence of loss of vertebral body height i s seen. There is normal alignment of the lumbar vertebral bodies. Mild scattered disc space narrowing . Minimal osteophyte formation throughout the visualized spine. There is facet joint arthropathy thro ughout the spine. Scattered at least mild neural foraminal stenosis. IMPRESSION: 1. No acute fracture. 2. Mild multilevel disc degeneration. [facility], , 04/12/2024 5:17 PM
[2024-04-12] MEDS: LIDOCAINE 4% PATCH TOPICAL ONE (17:21)
[2024-04-12] MEDS: ORPHENADRINE 30 MG/ML 2 ML VIAL IM STA (17:22)
[2024-04-12] MEDS: Acetaminophen-Codeine 300-30mg TAB PO STA (18:13)
[2024-04-12] MEDS: CYCLOBENZAPRINE 10MG STARTER 3 TAB BTL PO STA (18:14)
[2024-04-12 18:16] VITALS: BP 155/82; PULSE 68; RESP 16
== END 2024-04-12 18:17 | disposition home or self-care (01) ==
LOC: EC 15:22
CPT/HCPCS: 72110; 96372; 99283

== ENCOUNTER 2024-12-02 18:29 | Emergency (ER) | payer OTHER ==
[2024-12-02 18:42] VITALS: TEMP 98
--- NOTE | 2024-12-02 19:06 | ED ---
Dizziness HPI - General Source: patient, RN notes reviewed Mode of arrival: ambulatory Limitations: no limitations <Michelle Carbajal - Last Filed: 12/02/24 19:00> - General Source: patient, RN notes reviewed <Estelle Frye - Last Filed: 12/02/24 23:52> - General Chief Complaint: Dizziness Stated Complaint: Dizziness/Dizzy spells Time Seen by Provider: 12/02/24 19:00 - History of Present Illness Initial Comments: Quick note: 49-year-old male presented the ER for evaluation of dizziness. Patient states for the past 3-week he has been having intermittent dizzy spells. He has been following up with an ENT yesterday and is scheduled to have balance test in December. He states it does not feel like the room is spinning but states the room feels like it "goes off. He does admit to occasional headaches but states he recently got new glasses. He does report symptoms are worse in the morning and progressively improved throughout the day. He denies a history of vertigo or head trauma. Denies any chest pain, shortness of breath. (Michelle Arias) 49-year-old male presenting to the ER for dizziness x 3 weeks. States he has been having intermittent dizzy spells fullness in his ears. States this began when he was diagnosed with a sinus infection. He was seen at urgent care where they told him he had fluid in his ears and told him to continue his antihistamine and Flonase. States he also saw an ENT specialist and scheduled him for a balance test next month. Symptoms are worse in the morning and improved with progressively throughout the day. No chest pain or shortness of breath. History of hypertension, otherwise no other significant medical conditions. (Estelle Frye) - Related Data Home Medications Medication Instructions Recorded Confirmed Olmesartan [Benicar] 20 mg PO DAILY 06/11/20 06/10/23 Triamterene/Hydrochlorothiazid 1 tab PO DAILY 06/11/20 06/10/23 [Triamterene-Hctz 37.5-25 mg Tb] Levothyroxine Sodium [Synthroid] 100 mcg PO DAILY 09/10/21 06/10/23 Cholecalciferol [Vitamin D3 (25 50 mcg PO DAILY 09/25/22 06/10/23 Mcg = 1000 Iu)] Omeprazole 20 mg PO BID 11/13/22 06/10/23 Triamcinolone 0.1% Cream [Kenalog 1 applicatio TOPICAL BID 06/10/23 06/10/23 0.1% Cream] Previous Rx's Medication Instructions Recorded Meloxicam [Mobic] 15 mg PO DAILY PRN #30 tab 11/09/23 methocarbamoL [Robaxin-750] 1,500 mg PO TID PRN #30 tab 11/09/23 Cyclobenzaprine [Flexeril] 10 mg PO TID PRN #15 tab 04/12/24 Lidocaine 5% Patch [Lidoderm 5% 1 patch TOPICAL DAILY PRN #30 patch 04/12/24 Patch] Allergies Allergy/AdvReac Type Severity Reaction Status Date / Time mold Allergy Mild sinus Verified 04/12/24 16:17 problems prednisone Allergy Swelling Verified 04/12/24 16:17 dander Allergy watery, Uncoded 04/12/24 16:17 itchy eyes dust Allergy sinus Uncoded 04/12/24 16:17 problems Review of Systems ROS Other: All systems not noted in ROS Statement are negative. <Michelle Carbajal - Last Filed: 12/02/24 19:00> ROS Other: All systems not noted in ROS Statement are negative. <Estelle Frye - Last Filed: 12/02/24 23:52> ROS Statement: Those systems with pertinent positive or pertinent negative responses have been documented in the HPI. Past Medical History Past Medical History: Asthma, GERD/Reflux, Hyperlipidemia, Hypertension, Sleep Apnea/CPAP/BIPAP, Thyroid Disorder Additional Past Medical History / Comment(s): Frequent stomach discomfort, Cpap at night History of Any Multi-Drug Resistant Organisms: None Reported Past Surgical History: Cholecystectomy, Orthopedic Surgery, Tonsillectomy Additional Past Surgical History / Comment(s): left wrist surgery, nasal cerda rgery, abcess removed from tonsils Past Anesthesia/Blood Transfusion Reactions: No Reported Reaction Additional Past Anesthesia/Blood Transfusion Reaction / Comment(s): Pt has never had a blood transfusion. Past Psychological History: Depression Smoking Status: Never smoker Past Alcohol Use History: Rare Past Drug Use History: None Reported - Past Family History Mother Additional Family Medical History / Comment(s): gall bladder removed Father Family Medical History: Coronary Artery Disease (CAD) Additional Family Medical History / Comment(s): <RavenMichelle - Last Filed: 12/02/24 19:00> General Exam Limitations: no limitations <JonathanmiguelMichelle - Last Filed: 12/02/24 19:00> General appearance: alert, in no apparent distress Head exam: Present: atraumatic, normocephalic, normal inspection Eye exam: Present: normal appearance, PERRL, EOMI. Absent: scleral icterus, conjunctival injection, periorbital swelling ENT exam: Present: normal exam, normal oropharynx, mucous membranes moist, TM's normal bilaterally (Mild fluid behind TMs bilaterally) Respiratory exam: Present: normal lung sounds bilaterally. Absent: respiratory distress, wheezes, rales, rhonchi, stridor Cardiovascular Exam: Present: regular rate, normal rhythm, normal heart sounds. Absent: systolic murmur, diastolic murmur, rubs, gallop, clicks Neurological exam: Present: alert, oriented X3, CN II-XII intact Psychiatric exam: Present: normal affect, normal mood Skin exam: Present: warm, dry, intact, normal color. Absent: rash <UdayEstelle - Last Filed: 12/02/24 23:52> - General Exam Comments Initial Comments: Visual Physical Exam Vital signs reviewed General: Well-appearing, nontoxic, no acute distress. Head: Normocephalic, atraumatic Eyes: PERRLA, EOMI ENT: Airway patent Chest: Nonlabored breathing Skin: No visual rash, normal skin tone Neuro: Alert and oriented 3 Musculoskeletal: No gross abnormalities (Robertojorge aMichelle) Course Vital Signs 12/02/24 18:39 Temperature 98 F Pulse Rate 75 Respiratory 20 Rate Blood Pressure 174/81 O2 Sat by Pulse 98 Oximetry EKG Findings - EKG Results: EKG: interpreted by ERMD (EKG reveals normal sinus rhythm with no acute ST changes. Ventricular rate 69 bpm, NE interval 157, QRS duration 106, QT/QTc 366/386) <Estelle Frye - Last Filed: 12/02/24 23:52> Medical Decision Making <RavenMichelle - Last Filed: 12/02/24 19:00> - Lab Data Result diagrams: 12/02/24 20:04 12/02/24 20:04 <Estelle Frye - Last Filed: 12/02/24 23:52> - Medical Decision Making I performed the quick note portion of this chart. Electronically signed by Michelle Carbajal PA-C (Michelle Carbajal) Was pt. sent in by a medical professional or institution (SHABBIR Ng, SKILLED NURSING CASE MANAGER, urgent care, hospital, or longterm...) When possible be specific @ -No Did you speak to anyone other than the patient for history (EMS, parent, family, police, friend...)? What history was obtained from this source @ -No Did you review nursing and triage notes (agree or disagree)? Why? @ -I reviewed and agree with nursing and triage notes Were old charts reviewed (outside hosp., previous admission, EMS record, old EKG, old radiological studies, urgent care reports/EKG's, longterm records)? Report findings @ -No old charts were reviewed Differential Diagnosis (chest pain, altered mental status, abdominal pain women, abdominal pain men, vaginal bleeding, weakness, fever, dyspnea, syncope, headache, dizziness, GI bleed, back pain, seizure, CVA, palpatations, mental health, musculoskeletal)? @ -Differential Dizziness: Benign paroxysmal positional Vertigo, Meniere's disease, otitis media, acoustic neuroma, vertebrobasilar insufficiency, cerebellar stroke, encephalitis, hypovolemic, arrhythmia, coronary artery syndrome, anemia, this is not meant to be an all-inclusive list EKG interpreted by me (3pts min.). @ -As above X-rays interpreted by me (1pt min.). @ -None done CT interpreted by me (1pt min.). @ -CT brain revealed no acute process U/S interpreted by me (1pt. min.). @ -None done What testing was considered but not performed or refused? (CT, X-rays, U/S, labs)? Why? @ -None What meds were considered but not given or refused? Why? @ -None Did you discuss the management of the patient with other professionals (prof estefania i.e. SHABBIR Ng, SKILLED NURSING CASE MANAGER, lab, RT, psych nurse, dialysis social worker, pension adviser, teacher, money position officer, case folder)? Give summary @ -No Was smoking cessation discussed for >3mins.? @ -No Was critical care preformed (if so, how long)? @ -No Were there social determinants of health that impacted care today? How? (Homelessness, low income, unemployed, alcoholism, drug addiction, transportation, low edu. Level, literacy, decrease access to med. care, [facility], rehab)? @ -No Was there de-escalation of care discussed even if they declined (Discuss DNR or withdrawal of care, Hospice)? DNR status @ -No What co-morbidities impacted this encounter? (DM, HTN, Smoking, COPD, CAD, Cancer, CVA, ARF, Chemo, Hep., AIDS, mental health diagnosis, sleep apnea, morbid obesity)? @ -None Was patient admitted / discharged? Hospital course, mention meds given and route, prescriptions, significant lab abnormalities, going to OR and other pertinent info. @ -Discharge. 49-year-old male presenting for intermittent dizziness x 3 weeks. Patient was diagnosed with vertigo by ENT specialist. Patient is currently asymptomatic. Neurological examination unremarkable. Lab work including CBC, CMP, troponin, coags unremarkable. EKG reveals normal sinus rhythm with no acute ST changes. CT brain revealed no acute process. Discussed diagnosis of vertigo with patient. Appropriate return precautions and follow-up care/ supportive care discussed. Advised to continue antihistamines. Patient is agreeable to plan. Case was discussed with the ED attending Dr. Almanza. Undiagnosed new problem with uncertain prognosis? @ -No Drug Therapy requiring intensive monitoring for toxicity (Heparin, Nitro, Insulin, Cardizem)? @ -No Were any procedures done? @ -No Diagnosis/symptom? @ -Vertigo Acute, or Chronic, or Acute on Chronic? @ -Acute Uncomplicated (without systemic symptoms) or Complicated (systemic symptoms)? @ -Uncomplicated Side effects of treatment? @ -No Exacerbation, Progression, or Severe Exacerbation? @ -No Poses a threat to life or bodily function? How? (Chest pain, [place], [place], pneumonia, PE, COPD, DKA, ARF, appy, cholecystitis, CVA, Diverticulitis, Homicidal, Suicidal, threat to staff... and all critical care pts) @ -No (Estelle Frye) - Lab Data Lab Results 12/02/24 12/02/24 12/02/24 Range/Units 18:59 20:04 20:04 WBC 7.27 (4.50-10.00) 10*3/uL RBC 4.72 (4.40-5.60) 10*6/uL Hgb 14.4 (13.0-17.0) g/dL Hct 40.0 (39.6-50.0) % MCV 84.7 (80.0-97.0) fL MCH 30.5 (27.0-32.0) pg MCHC 36.0 (32.0-37.0) g/dL Plt Count 245 (140-440) 10*3/uL MPV 10.5 (9.5-12.2) fL Immature Gran % (Auto) 0.7 % Neutrophils % 63.4 % Lymphocytes % 26.7 % Monocytes % 6.7 % Eosinophils % 1.8 % Basophils % 0.7 % Immature Gran # 0.05 H (0.00-0.04) 10*3/uL Neutrophils # 4.61 (1.80-7.70) 10*3/uL Lymphocytes # 1.94 (0.90-5.00) 10*3/uL Monocytes # 0.49 (0.20-1.00) 10*3/uL Eosinophils # 0.13 (0.04-0.35) 10*3/uL Basophils # 0.05 (0.00-0.10) 10*3/uL PT 10.4 (10.0-12.5) sec INR 0.9 (<1.2) APTT 25.6 (22.0-30.0) sec Sodium (137-145) mmol/L Potassium (3.5-5.1) mmol/L Chloride (98-107) mmol/L Carbon Dioxide (22-30) mmol/L Anion Gap mmol/L BUN (9-20) mg/dL Creatinine (0.66-1.25) mg/dL Est GFR (CKD-EPI)AfAm (>60 ml/min/1.73 sqM) Est GFR (CKD-EPI)NonAf (>60 ml/min/1.73 sqM) Glucose (74-99) mg/dL Calcium (8.4-10.2) mg/dL Magnesium (1.6-2.3) mg/dL Total Bilirubin (0.2-1.3) mg/dL AST (17-59) U/L ALT (4-49) U/L Alkaline Phosphatase (38-126) U/L Troponin I (0.000-0.034) ng/mL Total Protein (6.3-8.2) g/dL Albumin (3.5-5.0) g/dL Urine Color Light Yellow Urine Appearance Clear (Clear) Urine pH 6.5 (5.0-8.0) Ur Specific [place] 1.019 (1.001-1.035) Urine Protein Negative (Negative) Urine Glucose (UA) Negative (Negative) Urine Ketones Negative (Negative) Urine Blood Negative (Negative) Urine Nitrite Negative (Negative) Urine Bilirubin Negative (Negative) Urine Urobilinogen <2.0 (<2.0) mg/dL Ur Leukocyte Esterase Negative (Negative) 12/02/24 12/02/24 Range/Units 20:04 20:04 WBC (4.50-10.00) 10*3/uL RBC (4.40-5.60) 10*6/uL Hgb (13.0-17.0) g/dL Hct (39.6-50.0) % MCV (80.0-97.0) fL MCH (27.0-32.0) pg MCHC (32.0-37.0) g/dL Plt Count (140-440) 10*3/uL MPV (9.5-12.2) fL Immature Gran % (Auto) % Neutrophils % % Lymphocytes % % Monocytes % % Eosinophils % % Basophils % % Immature Gran # (0.00-0.04) 10*3/uL Neutrophils # (1.80-7.70) 10*3/uL Lymphocytes # (0.90-5.00) 10*3/uL Monocytes # (0.20-1.00) 10*3/uL Eosinophils # (0.04-0.35) 10*3/uL Basophils # (0.00-0.10) 10*3/uL PT (10.0-12.5) sec INR (<1.2) APTT (22.0-30.0) sec Sodium 140 (137-145) mmol/L Potassium 3.9 (3.5-5.1) mmol/L Chloride 101 (98-107) mmol/L Carbon Dioxide 25 (22-30) mmol/L Anion Gap 14 mmol/L BUN 23 H (9-20) mg/dL Creatinine 1.05 (0.66-1.25) mg/dL Est GFR (CKD-EPI)AfAm >90 (>60 ml/min/1.73 sqM) Est GFR (CKD-EPI)NonAf 82 (>60 ml/min/1.73 sqM) Glucose 88 (74-99) mg/dL Calcium 10.0 (8.4-10.2) mg/dL Magnesium 2.1 (1.6-2.3) mg/dL Total Bilirubin 0.8 (0.2-1.3) mg/dL AST 41 (17-59) U/L ALT 43 (4-49) U/L Alkaline Phosphatase 77 (38-126) U/L Troponin I <0.012 (0.000-0.034) ng/mL Total Protein 7.1 (6.3-8.2) g/dL Albumin 4.5 (3.5-5.0) g/dL Urine Color Urine Appearance (Clear) Urine pH (5.0-8.0) Ur Specific [place] (1.001-1.035) Urine Protein (Negative) Urine Glucose (UA) (Negative) Urine Ketones (Negative) Urine Blood (Negative) Urine Nitrite (Negative) Urine Bilirubin (Negative) Urine Urobilinogen (<2.0) mg/dL Ur Leukocyte Esterase (Negative) Disposition <Michelle Carbajal - Last Filed: 12/02/24 19:00> Is patient prescribed a controlled substance at d/c from ED?: No Time of Disposition: 23:51 <Estelle Frye - Last Filed: 12/02/24 23:52> Clinical Impression: Vertigo Disposition: HOME SELF-CARE Condition: Stable Instructions (If sedation given, give patient instructions): Vertigo (ED) Additional Instructions: Continue antihistamines as discussed. Please return to the Emergency Department if symptoms worsen or any other concerns. Referrals: Gerald Tejada DO [Primary Care Provider] - 1-2 days
[2024-12-02 20:23] LABS: Basophils # (A) 0.05 10*3/uL (0.00-0.10); Basophils % (A) 0.7 %; Eosinophils # (A) 0.13 10*3/uL (0.04-0.35); Eosinophils % (A) 1.8 %; HGB 14.4 g/dL (13.0-17.0); Lymphocytes # (A) 1.94 10*3/uL (0.90-5.00); Lymphocytes % (A) 26.7 %; MCH 30.5 pg (27.0-32.0); MCV 84.7 fL (80.0-97.0); Mean Platelet Volume 10.5 fL (9.5-12.2); Monocytes # (A) 0.49 10*3/uL (0.20-1.00); Monocytes % (A) 6.7 %; Neutrophils # (A) 4.61 10*3/uL (1.80-7.70); Neutrophils % (A) 63.4 %; Platelet Count 245 10*3/uL (140-440); RBC 4.72 10*6/uL (4.40-5.60); RDW 12.6 % (11.5-14.5); WBC 7.27 10*3/uL (4.50-10.00)
[2024-12-02 20:34] LABS: INR 0.9 (<1.2); Partial Thromboplastin Time 25.6 sec (22.0-30.0); Prothrombin Time 10.4 sec (10.0-12.5)
[2024-12-02 20:42] LABS: ALT 43 U/L (4-49); AST 41 U/L (17-59); African American GFR (CKD) >90 (>60 ml/min/1.73 sqM); Albumin 4.5 g/dL (3.5-5.0); Alkaline Phosphatase 77 U/L (38-126); Anion Gap 14 mmol/L; Blood Urea Nitrogen 23 mg/dL (9-20); Carbon Dioxide 25 mmol/L (22-30); Chloride 101 mmol/L (98-107); Glucose 88 mg/dL (74-99); Magnesium 2.1 mg/dL (1.6-2.3); Non-African American GFR(CKD) 82 (>60 ml/min/1.73 sqM); Potassium 3.9 mmol/L (3.5-5.1); Sodium 140 mmol/L (137-145); Total Bilirubin 0.8 mg/dL (0.2-1.3); Total Protein 7.1 g/dL (6.3-8.2)
--- NOTE | 2024-12-02 21:15 | CT ---
EXAMINATION TYPE: CT brain wo con CT DLP: 1156.7 mGycm, Automated exposure control for dose reduction was used. DATE OF EXAM: 12/02/2024 8:33 PM COMPARISON: None. CLINICAL INDICATION:Male, 49 years old with history of dizziness, dizziness x 3 weeks TECHNIQUE: Brain: Axial CT images of the brain were obtained with coronal and sagittal reformats created and rev iewed. Contrast used: None. Oral contrast used: None. FINDINGS: Brain: Extra-axial spaces: No abnormal extra-axial fluid collections. Ventricular system: Within normal limits Cerebral parenchyma: No acute intraparenchymal hemorrhage or mass effect. The garay-white junction is well differentiated. Cerebellum: Unremarkable. Mass effect: No evidence of midline shift. Intracranial vasculature: unremarkable Soft tissues: Normal. Calvarium/osseous structures: No acute depressed skull fracture. Nonfusion of the posterior arch of C 1 anatomic variant noted. Paranasal sinuses and mastoid air cells: Mild scattered paranasal sinus disease. Visualized orbits: Orbital contents are intact. IMPRESSION: No acute intracranial process. [facility], , 12/02/2024 9:13 PM
[2024-12-02 23:14] LABS: Appearance,Urine Clear (Clear); Bilirubin,Urine Negative (Negative); Blood,Urine Negative (Negative); Color,Urine Light Yellow; Glucose,Urine (UA) Negative (Negative); Ketones,Urine Negative (Negative); Leukocyte Esterase,Urine Negative (Negative); Nitrite,Urine Negative (Negative); PH, Urine 6.5 (5.0-8.0); Protein,Urine Negative (Negative); Specific Gravity,Urine 1.019 (1.001-1.035); Urobilinogen,Urine <2.0 mg/dL (<2.0)
[2024-12-02 23:59] VITALS: BP 125/58; PULSE 72; RESP 16
== END 2024-12-02 23:59 | disposition home or self-care (01) ==
LOC: EC 18:29
DX: R42 Dizziness and giddiness (principal); I10 Essential (primary) hypertension; Z77.120 Contact with and (suspected) exposure to mold (toxic); Z88.8 Allergy status to other drugs, medicaments and biological substances
CPT/HCPCS: 36415; 70450; 80053; 81003; 83735; 84484; 85025; 85610; 85730; 93005; 99284